=== PATIENT | female | born 1985 ===

== ENCOUNTER 2023-08-23 21:21 | Outpatient (REF) | payer OTHER, SELFPAY ==
[2023-08-30 20:08] LABS: Age Gdln ACOG Testing Note (.); HPV Aptima Positive (Negative); HPV Genotype 16 Negative (Negative); HPV Genotype 18,45 Negative (Negative); IGP, Aptima HPV, rfx 16/18,45 Note (.)
== END 2023-08-23 21:22 | disposition home or self-care (01) ==
LOC: LAB 21:21
PROVIDERS: Visit Provider Physician Assistant
DX: Z01.419 Encounter for gynecological examination (general) (routine) without abnormal findings (principal)
CPT/HCPCS: 87624; 87625; G0145

== ENCOUNTER 2024-10-02 18:23 | Outpatient (REF) | payer OTHER, SELFPAY ==
--- OUTSIDE RECORDS SUMMARY | 2024-10-02 18:29 | XMS_ITS | CCD ---
Author Organization [facility] [place] [facility] Care Team Providers Care Insert Operator Name Role Phone Bladimir Jennings Primary Care Provider [phone] Adolfo Garcia DO Primary Care Provider Raquel VALENCIA Attending Unavailable MORA WELCH Attending Unavailable MORA WELCH Attending Unavailable Adolfo Garcia DO Primary Care Provider DOMENIC GALLAGHER Attending Unavailable ADOLFO GARCIA Primary Care Unavailable Bladimir Jennings MD Primary Care Provider [phone] Medications Current Medications Medication Drug Class(es) Dates Sig (Normalized) Sig (Original) cyclobenzaprine hydrochloride 10 mg oral tablet (2 sources) Muscle Relaxant Start: 01-26-2023 take 1 tablet by mouth three times daily as needed for muscle spasms cyclobenzaprine (FLEXERIL) 10 MG tablet Take 1 tablet by mouth 3 times daily as needed for Muscle spasms 30 tablet 1 01/26/2023 Active take 1 tablet by guanaco three times daily as needed for muscle spasms cyclobenzaprine (FLEXERIL) 10 MG tablet Take 10 mg by mouth 3 times daily as needed for Muscle spasms 0 Active dilTIAZem hydrochloride 30 mg oral tablet (2 sources) Calcium Channel Denis Start: 02-25-2022 take 1 tablet by mouth once daily as needed dilTIAZem (CARDIZEM) 30 MG tablet Take 1 tablet by mouth daily as needed (for SVT epidoses) 30 tablet 3 02/25/2022 Active 3 ml liraglutide 6 mg/ml pen injector (1 source) GLP-1 Receptor Agonist Start: 01-27-2023 liraglutide-weight management 18 MG/3ML SOPN 0.6 mg subcu daily. Inc by 0.6 mg weekly til reaching max tolerated dose of 3 mg weekly. 15 mL 2 01/27/2023 Active 1 ml medroxyPROGESTERone acetate 150 mg/ml injection (3 sources) Progestin Start: 08-23-2023 End: 10-02-2024 medroxyPROGESTERone (Depo-Provera) 150 MG/ML injection Indications: control counseling Inject 1 mL (150 mg) into the shoulder, thigh, or buttocks every 3 (three) months. 1 mL 3 08/23/2023 10/02/2024 Discontinued (Therapy completed) naproxen 500 mg oral tablet (1 source) Nonsteroidal Anti-inflammatory Drug take 1 tablet by mouth in the morning naproxen (NAPROSYN) 500 MG tablet Take 500 mg by mouth in the morning and 500 mg in the evening. Take with meals. 0 Active nitrofurantoin, macrocrystals 25 mg / nitrofurantoin, monohydrate 75 mg oral capsule (1 source) Nitrofuran Antibacterial Start: 06-01-2022 End: 06-06-2022 take 1 capsule by mouth twice daily nitrofurantoin, macrocrystal-monohydra te, (MACROBID) 100 MG capsule Indications: Acute cystitis without hematuria Take 1 capsule by mouth 2 times daily for 5 days 10 capsule 0 06/01/2022 06/06/2022 Active omeprazole 20 mg delayed release oral capsule (5 sources) Proton Pump Inhibitor Start: 09-28-2023 End: 10-02-2024 take 1 capsule by mouth in the morning omeprazole (PriLOSEC) [address] capsule Indications: Gastroesophageal reflux disease, unspecified whether esophagitis present Take 1 capsule (20 mg) by mouth in the morning. Do not crush or chew.. 90 capsule 3 09/28/2023 10/02/2024 Discontinued (Therapy completed) Start: 05-12-2022 take 1 capsule by mo ut once daily before breakfast omeprazole (PRILOSEC) 40 MG delayed release capsule Take 1 capsule by mouth every morning (before breakfast) 90 capsule 1 05/12/2022 Active phentermine hydrochloride 37.5 mg oral tablet (1 source) Sympathomimetic Amine Anorectic Start: 05-12-2022 End: 06-11-2022 take 1 tablet by mouth once daily before breakfast phentermine (ADIPEX-P) 37.5 MG tablet Indications: Morbid obesity due to excess calories (HCC) Take 1 tablet by mouth every morning (before breakfast) for 30 days. 30 tablet 0 05/12/2022 06/11/2022 Active propranolol hydrochloride 10 mg oral tablet (2 sources) beta-Adrenergic Denis Start: 02-25-2022 take 1 tablet by mouth twice daily propranolol (INDERAL) 10 MG tablet Take 1 tablet by mouth 2 times daily 180 tablet 3 02/25/2022 Active 72 hr scopolamine 0.0139 mg/hr transdermal system (1 source) Anticholinergic Start: 03-10-2024 scopolamine (TRANSDERM-SCOP) transdermal patch Place 1 patch onto the skin every 72 hours 3 patch 03/10/2024 Active spironolactone 25 mg oral tablet (2 sources) Aldosterone Antagonist Start: 02-25-2022 take 1 tablet by mouth once daily spironolactone (ALDACTONE) 25 MG tablet Take 1 tablet by mouth daily 30 tablet 11 02/25/2022 Active Problems Problem Classification Problem Date Documented Date Episodic/Chronic Cardiac dysrhythmias (3 sources) Paroxysmal supraventricular tachycardia; Translations: [Supraventricular tachycardia] Onset: 05-12-2022 05-12-2022 Chronic Immunizations and screening for infectious disease (1 source) Patient encounter status; Translations: [Encounter for screening for infections with a predominantly sexual mode of transmission] Episodic Malaise and fatigue (1 source) Fatigue; Translations: [Other fatigue] Episodic Menstrual disorders (2 sources) Menorrhagia; Translations: [Excessive and frequent menstruation with regular cycle] 10-02-2024 Chronic Other female genital disorders (1 source) Vaginal odor; Translations: [Other specified noninflammatory disorders of vagina] Episodic Other lower respiratory disease (1 source) Snoring; Translations: [Snoring] Episodic Other nervous system disorders (2 sources) Carpal tunnel syndrome of right wrist; Translations: [Carpal tunnel syndrome, right upper limb] Onset: 05-12-2022 05-12-2022 Chronic Other nutritional; endocrine; and metabolic disorders (1 source) Obesity; Translations: [Obesity, unspecified] Onset: 10-09-2021 10-09-2021 Chronic Other nutritional; endocrine; and metabolic disorders (2 sources) Morbid obesity; Translations: [Morbid (severe) obesity due to excess calories] Onset: 10-09-2021 05-12-2022 Chronic Other nutritional; endocrine; and metabolic disorders (2 sources) Weight increased; Translations: [Abnormal weight gain] 10-02-2024 Episodic Residual codes; unclassified (1 source) Sleep apnea; Translations: [Sleep apnea, unspecified] Chronic Unclassified (1 source) Supraventricular tachycardia, unspecified; Translations: [Supraventricular tachycardia, unspecified] Onset: 05-12-2022 Results Test Name Value Interpretation Reference Range Facility CBC with Auto Differentialon 09-09-2024 Basophils (Bld) [#/Vol] 0.05 10*3/uL [facility] Basophils/100 WBC (Bld) 0 % 0 - 2 % [facility] Eosinophils (Bld) [#/Vol] 0.20 10*3/uL [facility] Eosinophils/100 WBC (Bld) 1 % 0 - 5 % [facility] Erythrocyte distribution width (RBC) [Ratio] 13.1 % 12.1 - 15.2 % [facility] Hematocrit (Bld) [Volume fraction] 43.0 % 36.0 - 46.0 % [facility] Hemoglobin (Bld) [Mass/Vol] 14.7 g/dL 12.0 - 16.0 g/dL [facility] Immature granulocytes (Bld) [#/Vol] 0.03 10*3/uL [facility] Immature granulocytes/100 WBC (Bld) 0 % 0 - 5 % [facility] Interpretation and review of laboratory results Abnormal [facility] Lymphocytes/100 WBC (Bld) 31 % 15 - 40 % [facility] Lymphocytes/100 WBC (Bld) 4.77 % [facility] MCH (RBC) [Entitic mass] 28.1 pg 26.0 - 34.0 pg [facility] MCHC (RBC) [Mass/Vol] 34.2 g/dL 31.0 - 37.0 g/dL [facility] MCV (RBC) [Entitic vol] 82.1 fL 80.0 - 100.0 fL [facility] Monocytes/100 WBC (Bld) 6 % 4 - 8 % [facility] Monocytes/100 WBC (Bld) 0.90 % [facility] Neutrophils/100 WBC (Bld) 62 % 47 - 75 % [facility] Platelet mean volume (Bld) [Entitic vol] 10.3 fL 6.0 - 12.0 fL [facility] Platelets (Bld) [#/Vol] 388 10*3/uL [facility] RBC (Bld) [#/Vol] 5.24 10*6/uL High 4.00 - 5.2 0 m/uL [facility] Segmented neutrophils/100 WBC (Bld) 9.24 % High [facility] WBC other (Bld) [#/Vol] 15.2 High [facility] CBC with Diffon 09-09-2024 Abs. Basophil 0.05 k/uL Normal 0.00-0.20 [facility] Comment on above: Performed By: #### C DP, CP, TSH, TROPI #### [facility] [address] [place] [address] Field [employer] Team Leader: Alexander Echevarria MD Abs.Imm.Granulocyte 0.03 k/uL Normal 0.00-0.30 [facility] Comment on above: Performed By: #### C DP, CP, TSH, TROPI #### [facility] [address] [place] [address] [employer] Team Leader: Alexander Echevarria MD Abs.Neutrophil (Seg) 9.24 k/uL High 2.5-7.0 [facility] Comment on above: Performed By: #### C DP, CP, TSH, TROPI #### [facility] [address] [place] [address] [employer] Team Leader: Alexander Echevarria MD Basophils/100 WBC (Bld) 0 % Normal 0-2 [facility] Comment on above: Performed By: #### C DP, CP, TSH, TROPI #### [facility] [address] [place] [address] [employer] Team Leader: Alexander Echevarria MD Eosinophils (Bld) [#/Vol] 0.20 10*3/uL Normal 0.00-0.40 [facility] Comment on above: Performed By: #### C DP, CP, TSH, TROPI #### [facility] [address] [place] [phone] [employer] Team Leader: Alexander Echevarria MD Eosinophils/100 WBC (Bld) 1 % Normal 0-5 [facility] Comment on above: Performed By: #### C DP, CP, TSH, TROPI #### [facility] [address] [place] [address] [employer] Team Leader: Alexander Echevarria MD Erythrocyte distribution width (RBC) [Ratio] 13.1 % Normal 12.1-15.2 [facility] Comment on above: Performed By: #### C DP, CP, TSH, TROPI #### [facility] [address] [place] [address] [employer] Team Leader: Alexander Echevarria MD Hematocrit (Bld) [Volume fraction] 43.0 % Normal 36.0-46.0 [facility] Comment on above: Performed By: #### C DP, CP, TSH, TROPI #### [facility] [address] [place] [address] [employer] Team Leader: Alexander Echevarria MD Hemoglobin (Bld) [Mass/Vol] 14.7 g/dL Normal 12.0-16.0 [facility] Comment on above: Performed By: #### C DP, CP, TSH, TROPI #### [facility] [address] [place] [phone] [employer] Team Leader: Alexander Echevarria MD Immature granulocytes/100 WBC (Bld) 0 % Normal 0-5 [facility] Comment on above: Performed By: #### C DP, CP, TSH, TROPI #### [facility] [address] [place] [phone] [employer] Team Leader: Alexander Echevarria MD Lymphocytes (Bld) [#/Vol] 4.77 10*3/uL Normal 1.00-4.80 [facility] Comment on above: Performed By: #### C DP, CP, TSH, TROPI #### [facility] [address] [place] [address] [employer] Team Leader: Alexander Echevarria MD Lymphocytes/100 WBC (Bld) 31 % Normal 15-40 [facility] Comment on above: Performed By: #### C DP, CP, TSH, TROPI #### [facility] [address] [place] [address] [employer] Team Leader: Alexander Echevarria MD MCH (RBC) [Entitic mass] 28.1 pg Normal 26.0-34.0 [facility] Comment on above: Performed By: #### C DP, CP, TSH, TROPI #### [facility] [address] [place] [phone] [employer] Team Leader: Alexander Echevarria MD MCHC (RBC) [Mass/Vol] 34.2 g/dL Normal 31.0-37.0 [facility] Comment on above: Performed By: #### C DP, CP, TSH, TROPI #### [facility] [address] [place] [address] [employer] Team Leader: Alexander Echevarria MD MCV (RBC) [Entitic vol] 82.1 fL Normal 80.0-100.0 [facility] Comment on above: Performed By: #### C DP, CP, TSH, TROPI #### [facility] [address] [place] [phone] [employer] Team Leader: Alexander Echevarria MD Monocytes (Bld) [#/Vol] 0.90 10*3/uL Normal 0.00-1.00 [facility] Comment on above: Performed By: #### C DP, CP, TSH, TROPI #### [facility] [address] [place], [place] [phone] [employer] Team Leader: Alexander Echevarria MD Monocytes/100 WBC (Bld) 6 % Normal 4-8 [facility] Comment on above: Performed By: #### C DP, CP, TSH, TROPI #### [facility] [address] [place], [place] [phone] [employer] Team Leader: Alexander Echevarria MD Neutrophil (Seg) 62 % Normal 47-75 [facility] Comment on above: Performed By: #### C DP, CP, TSH, TROPI #### [facility] [address] [place] [phone] [employer] Team Leader: Alexander Echevarria MD Platelet mean volume (Bld) [Entitic vol] 10.3 fL Normal 6.0-12.0 [facility] Comment on above: Performed By: #### C DP, CP, TSH, TROPI #### [facility] [address] [place] [phone] [employer] Team Leader: Alexander Echevarria MD Platelets (Bld) [#/Vol] 388 10*3/uL Normal 140-450 [facility] Comment on above: Performed By: #### C DP, CP, TSH, TROPI #### [facility] [address] [place] [phone] [employer] Team Leader: Alexander Echevarria MD RBC (Bld) [#/Vol] 5.24 10*6/uL High 4.00-5.20 [facility] Comment on above: Performed By: #### C DP, CP, TSH, TROPI #### [facility] [address] [place] [phone] [employer] Team Leader: Alexander Echevarria MD WBC (Bld) [#/Vol] 15.2 10*3/uL High 3.5-11.0 [facility] Comment on above: Performed By: #### C DP, CP, TSH, TROPI #### [facility] [address] [place], [place] [phone] [employer] Team Leader: Alexander Echevarria MD Comp Metabolic Profon 2023 Albumin [Mass/Vol] 4.9 g/dL Normal 3.5-5.2 [facility] Comment on above: Performed By: #### C DP, CP, TSH, TROPI #### [facility] [address] [place], [place] [phone] [employer] Team Leader: Alexander Echevarria MD Alkaline Phos 107 U/L High 35-104 [facility] Comment on above: Performed By: #### C DP, CP, TSH, TROPI #### [facility] [address] [place] [address] [employer] Team Leader: Alexander Echevarria MD ALT [Catalytic activity/Vol] 85 U/L High 5-33 [facility] Comment on above: Performed By: #### C DP, CP, TSH, TROPI #### [facility] [address] [place], [place] [phone] [employer] Team Leader: Alexander Echevarria MD Anion gap [Moles/Vol] 19 mmol/L High 9-17 [facility] Comment on above: Performed By: #### C DP, CP, TSH, TROPI #### [facility] [address] [place], [place] [phone] [employer] Team Leader: Alexander Echevarria MD AST [Catalytic activity/Vol] 110 U/L High <32 [facility] Comment on above: Performed By: #### C DP, CP, TSH, TROPI #### [facility] [address] [place], [place] [phone] [employer] Team Leader: Alexander Echevarria MD Bilirubin [Mass/Vol] 0.2 mg/dL Low 0.3-1.2 [facility] Comment on above: Performed By: #### C DP, CP, TSH, TROPI #### [facility] [address] [place], [place] [phone] [employer] Team Leader: Alexander Echevarria MD BUN/CRE Ratio 20 Normal 9-20 [facility] Comment on above: Performed By: #### C DP, CP, TSH, TROPI #### [facility] [address] [place], [place] [phone] [employer] Team Leader: Alexander Echevarria MD Calcium [Mass/Vol] 9.8 mg/dL Normal 8.6-10.4 [facility] Comment on above: Performed By: #### C DP, CP, TSH, TROPI #### [facility] [address] [place], [place] [phone] [employer] Team Leader: Alexander Echevarria MD Chloride [Moles/Vol] 98 mmol/L Normal 98-107 [facility] Comment on above: Performed By: #### C DP, CP, TSH, TROPI #### [facility] [address] [place], [place] [phone] [employer] Team Leader: Alexander Echevarria MD CO2 [Moles/Vol] 23 mmol/L Normal 20-31 [facility] Comment on above: Performed By: #### C DP, CP, TSH, TROPI #### [facility] [address] [place], [place] [phone] [employer] Team Leader: Alexander Echevarria MD Creatinine [Mass/Vol] 0.9 mg/dL Normal 0.5-0.9 [facility] Comment on above: Performed By: #### C DP, CP, TSH, TROPI #### [facility] [address] [place] [address] Field Marketing Team Leader: Alexander Echevarria MD GFR/1.73 sq M.predicted among non-blacks MDRD (S/P/Bld) [Vol rate/Area] 84 mL/min/{1.73_m2} Normal >60 [facility] Comment on above: Result Comment: These results are not intended for use in patients <18 years of age. eGFR results are calculated without a race factor using the 2020 CKD-EPI equation. Careful clinical correlation is recommended, particularly when comparing to results calculated using previous equations. The CKD-EPI equation is less accurate in patients with extremes of muscle mass, extra-renal metabolism of creatine, excessive creatine ingestion, or following therapy that affects renal tubular secretion. Performed By: #### C DP, CP, TSH, TROPI #### [facility] [address] [place] [phone] [employer] Team Leader: Alexander Echevarria MD Glucose [Mass/Vol] 106 mg/dL High 70-99 [facility] Comment on above: Performed By: #### C DP, CP, TSH, TROPI #### [facility] [address] [place] [address] Field Marketing Team Leader: Alexander Echevarria MD Potassium [Moles/Vol] 3.5 mmol/L Low 3.7-5.3 [facility] Comment on above: Performed By: #### C DP, CP, TSH, TROPI #### [facility] [address] [place], [place] [phone] Field [employer] Team Leader: Alexander Echevarria MD Protein [Mass/Vol] 8.7 g/dL High 6.4-8.3 [facility] Comment on above: Performed By: #### C DP, CP, TSH, TROPI #### [facility] [address] [place], [place] [phone] [employer] Team Leader: Alexander Echevarria MD Sodium [Moles/Vol] 140 mmol/L Normal 135-144 [facility] Comment on above: Performed By: #### C DP, CP, TSH, TROPI #### [facility] [address] [place] [phone] [employer] Team Leader: Alexander Echevarria MD Urea nitrogen [Mass/Vol] 18 mg/dL Normal 6-20 [facility] Comment on above: Performed By: #### C DP, CP, TSH, TROPI #### [facility] [address] [place] [address] Field Marketing Team Leader: Alexander Echevarria MD Comprehensive Metabolic Pane [facility] 09-09-2024 Albumin [Mass/Vol] 4.9 g/dL 3.5 - 5.2 g/dL [facility] ALP [Catalytic activity/Vol] 107 U/L High 35 - 104 U/L [facility] ALT [Catalytic activity/Vol] 85 U/L High 5 - 33 U/L [facility] Anion gap [Moles/Vol] 19 mmol/L High 9 - 17 mmol/L [facility] AST [Catalytic activity/Vol] 110 U/L High NINF - 32 U/L [facility] Bilirubin [Mass/Vol] 0.2 mg/dL Low 0.3 - 1 .2 mg/dL [facility] Calcium [Mass/Vol] 9.8 mg/dL 8.6 - 10. 4 mg/dL [facility] Chloride [Moles/Vol] 98 mmol/L 98 - 10 7 mmol/L [facility] CO2 [Moles/Vol] 23 mmol/L 20 - 31 mmol/L [facility] Creatinine [Mass/Vol] 0.9 mg/dL 0.5 - 0.9 mg/dL [facility] Est, Glom Filt Rate 84 - PINF [facility] Comment on above: These results are not intended for use in patients <18 years of age. eGFR results are calculated without a race factor using the 2020 CKD-EPI equation. Careful clinical correlation is recommended, particularly when comparing to results calculated using previous equations. The CKD-EPI equation is less accurate in patients with extremes of muscle mass, extra-renal metabolism of creatine, excessive creatine ingestion, or following therapy that affects renal tubular secretion. Glucose [Mass/Vol] 106 mg/dL High 70 - 99 mg/dL [facility] Potassium [Moles/Vol] 3.5 mmol/L Low 3.7 - 5.3 mmol/L [facility] Protein [Mass/Vol] 8.7 g/dL High 6.4 - 8.3 g/dL [facility] Sodium [Moles/Vol] 140 mmol/L 135 - 144 mmol/L [facility] Urea nitrogen [Mass/Vol] 18 mg/dL 6 - 20 mg/dL [facility] Urea nitrogen/Creatinine [Mass ratio] 20 mg/mg 9 - 20 [facility] No Panel Informationon 09-09 Interpretation and review of laboratory results Abnormal [facility] TSHon 09-09-2024 TSH Qn 4.74 m[IU]/L [facility] Thyroid Stim. Horm.on 2023 Thyroid Stim. Horm. 4.74 uIU/mL Normal 0.30-5.00 [facility] Comment on above: Performed By: #### C DP, CP, TSH, TROPI #### [facility] [address] [place], [place] [phone] Field [employer] Team Leader: Alexander Echevarria MD Troponinon 09-09-2024 Troponin I.cardiac High sensitivity method [Mass/Vol] 15 ng/L High 0 - 14 ng/L [facility] Comment on above: High Sensitivity Tro ponin values cannot be compared with other Troponin methodologies. Troponin, High Sens 15 ng/L High 0-14 [facility] Comment on above: Result Comment: High Sensitivity Troponin values cannot be compared with other Troponin methodologies. Performed By: #### C DP, CP, TSH, TROPI #### [facility] [address] [place] [address] Field Marketing Team Leader: Alexander Echevarria MD Cytology Cervical or vaginal smear or scraping studyon 08-23-2023 [facility] Ambulatory Visit Summaryon 1 11-20-2021 Ambulatory Visit Summary MYRA VALENCIA :1985 Visit Date:09/19/2022 Ambulatory Visit Instructions Your Diagnosis Acute nasopharyngitis BMI 50.0-59.9, adult Sore throat Your Care Team Attending Physician - Raquel VALENCIA CNP Primary Care Physician - NONE, XXXX Procedures Performed None. Discharge Vitals Temperature (Oral) 36.6 ?C Heart Rate (Peripheral) 77 Blood Pressure 132/82 Height 160 cm Height 63 in Weight 142 kg Weight 312.4 lb BMI 55.47 What to do next You Need to Schedule the Following Appointments Follow Up with NONE, XXXX When: Where: [phone] Medications and Immunizations Administered Not Given influenza virus vaccine, inactivated, Temporary contraindication - reschedule SARS-CoV-2 mRNA (tozinameran 5y-11y) vac, Temporary contraindication - reschedule Allergies No Known Allergies Problems Ongoing - Any problem that you are currently receiving treatment for. Obesity Historical - Any problem that you are no longer receiving treatment for. [employer] Pharyngitis Pharyngitis is a sore throat (pharynx). This is when there is redness, pain, and swelling in your throat. Most of the time, this condition gets better on its own. In some cases, you may need medicine. Follow these instructions at home: ? Take gqlp-ild-qwmharp and prescription medicines only as told by your doctor. ? If you were prescribed an antibiotic medicine, take it as told by your doctor. Do not stop taking the antibiotic even if you start to feel better. ? Do not give children aspirin. Aspirin has been linked to Quan syndrome. ? Drink enough water and fluids to keep your pee (urine) clear or pale yellow. ? Get a lot of rest. ? Rinse your mouth (gargle) with a salt-water mixture 3?4 times a day or as needed. To make a salt-water mixture, completely dissolve ?-1 tsp of salt in 1 cup of warm water. ? If your doctor approves, you may use throat lozenges or sprays to soothe your throat. Contact a doctor if: ? You have large, tender lumps in your neck. ? You have a rash. ? You cough up green, yellow-brown, or bloody spit. Get help right away if: ? You have a stiff neck. ? You drool or cannot swallow liquids. ? You cannot drink or take medicines without throwing up. ? You have very bad pain that does not go away with medicine. ? You have problems breathing, and it is not from a stuffy nose. ? You have new pain and swelling in your knees, ankles, wrists, or elbows. Summary ? Pharyngitis is a sore throat (pharynx). This is when there is redness, pain, and swelling in your throat. ? If you were prescribed an antibiotic medicine, take it as told by your doctor. Do not stop taking the antibiotic even if you start to feel better. ? Most of the time, pharyngitis gets better on its own. Sometimes, you may need medicine. This information is not intended to replace advice given to you by your health care provider. Make sure you discuss any questions you have with your health care provider. Document Released: 03/08/2009 Document Revised: 09/02/2018 Document Reviewed: 10/26/2017 [employer] Patient Education ? 2019 [employer]. Viral Respiratory Infection A viral respiratory infection is an illness that affects parts of the body that are used for breathing. These include the lungs, nose, and throat. It is caused by a germ called a virus. Some examples of this kind of infection are: ? A cold. ? The flu (influenza). ? A respiratory syncytial virus (RSV) infection. A person who gets this illness may have the following symptoms: ? A stuffy or runny nose. ? Yellow or green fluid in the nose. ? A cough. ? Sneezing. ? Tiredness (fatigue). ? Achy muscles. ? A sore throat. ? Sweating or chills. ? A fever. ? A headache. Follow these instructions at home: Managing pain and congestion ? Take avxw-dfh-vjpwjtw and prescription medicines only as told by your doctor. ? If you have a sore throat, gargle with salt water. Do this 3?4 times per day or as needed. To make a salt-water mixture, dissolve ??1 tsp of salt in 1 cup of warm water. Make sure that all the salt dissolves. ? Use nose drops made from salt water. This helps with stuffiness (congestion). It also helps soften the skin around your nose. ? Drink enough fluid to keep your pee (urine) pale yellow. General instructions ? Rest as much as possible. ? Do not drink alcohol. ? Do not use any products that have nicotine or tobacco, such as cigarettes and e-cigarettes. If you need help quitting, ask your doctor. ? Keep all follow-up visits as told by your doctor. This is important. How is this prevented? ? Get a flu shot every year. Ask your doctor when you should get your flu shot. ? Do not let other people get your germs (more content not included)... Normal [facility] Family Medicine Office/Clini c Noteon 09-19-2022 Family Medicine Office/Clinic Note Chief Complaint EST sore throat HPI Staff 37 year old female presents with sore throat symptoms have been present for? started on Wednesday with a sore throat fever?yes subjective fever? chills?yes Rigors? body aches?yes runny nose?yes sore throat?yes new olfactory and taste disorder? headache?no fatigue?yres cough?yes wheezing?no SOB?yes chest pain/tightness?no nausea or vomiting?no abdominal pain?no diarrhea?no ear pain/pressure?yes sick contacts? context (getting better, worse?) hx of allergies? treatments attempted?tylenol motrin cold and flu meds smoking status?no History of Present Illness I have reviewed and verified the staff HPI to be accurate for this encounter. Patient presents in office for concern of sore throat, tactile fever, chills, body aches, rhinorrhea, nasal congestion, fatigue. Patient has also had cough. Cough has been dry mostly, productive at times. Complains of shortness of breath at times with coughing fits. Denies GI symptoms. Symptoms x3 days. Denies known COVID or flu exposure. Had covid 3 weeks ago. Is not flu vaccinated. Has been using tylenol/motrin, tylenol cold medication with mild improvement. Last dose of medication 5 hours ago. Children had influenza 1.5 weeks ago. Patient states she is concerned she has strep Review of Systems PHQ Score Initial Depression Screen Score: 0 Physical Exam Vitals & Measurements T: 36.6 ?C(Oral) HR: 77(Peripheral) BP: 132/82 SpO2: 97% HT: 63 in HT: 160 cm WT: 142 kg WT: 312.4 lb BMI: 55.47 General: Obese, pleasant adult female in no acute distress Ears: No deformity or lesion of external ear. Canals and TM appear normal bilaterally. TM?s intact, not inflamed, with normal light reflex. Hearing grossly normal to conversational speech Nose: moderate nasal mucosa inflammation and edema, mild clear rhinorrhea Mouth: Moderate pharyngeal erythema, 1+ tonsils, no exudate, no petechiae, no palatal inflammation Neck: no adenopathy Lungs: clear to auscultation throughout, no wheezing, no rales. No respiratory distress, dry cough noted during visit. Cardio: regular rate and rhythm, no murmur Mental Status: Alert and oriented x3. Normal mood and affect Assessment/Plan 1. Acute nasopharyngitis (J00: Acute nasopharyngitis [common cold]) Rapid strep is negative. Discussed symptoms are more consistent with viral upper respiratory infection or possibly influenza. Advised of typical duration. Discussed antibiotics unfortunately do not treat viral illnesses, it will take time to run course- usually 7-14 days. Fluids/rest encouraged, PRN tylenol/ibuprofen for any pain. May use DayQuil/NyQuil or similar, Cepacol throat sprays or throat lozenges for symptomatic tx. Follow up with PCP if not improving over next 7 days or significantly worsening symptoms. Patient and/or parent verbalized understanding of tx plan. Discussed option of respiratory panel at hospital to test for flu, although 3 days of symptoms would not change treatment plan as is outside window for Tamiflu. Patient declines flu testing. 2. BMI 50.0-59.9, adult (Z68.43: Body mass index [BMI] 50.0-59.9, adult) The standard range for ages 18 and older is >=18.5 and < 25 kg/m2. Your BMI today was above this range, this falls in the overweight to obese category and there are medical benefits to weight loss. We can offer counselling, referral, and/or medical support in addressing this problem. Your BMI and weight management will be followed at subsequent visits. Ordered: Body Mass Index (BMI) documented 3008F Sore throat (J02.9: Acute pharyngitis, unspecified) Ordered: Rapid Strep POC [id number] Follow-up With When Contact Information NONE, XXXX [phone] Additional Instructions: Patient Education Pharyngitis, Pipn-nm-Tyeu Viral Respiratory Infection, Abfy-Do-Pwpm BMI for Adults Problem List/Past Medical History Ongoing Obesity Historical Procedure/Surgical History None. 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 Never Smokeless Tobacco Use:., 09/19/2022 Never (less than 100 in lifetime) Tobacco Use:. Never Smokeless Tobacco Use:., 11/15/2020 Family History Congenital heart disease: Father and Sister.Negative: Mother. Diabetes mellitus type 2: Father. Immunizations Vaccine Date Status Comments influenza virus vaccine, inactivated - Not Given Temporary contraindication - reschedule SARS-CoV-2 mRNA (tozinameran 5y-11y) vac - Not Given Temporary contraindication - reschedule SARS-CoV-2 (COVID-1 (more content not included)... Normal [facility] Comment on above: Result Comment: Elec tronically Signed By: ANNIE SEGAL, Raquel Acosta\.br\Date and Time Signed: 09/19/22 14:39 EST Patient Educationon 09-19-20 22 Patient Education Infectious Disease Pharyngitis Pharyngitis is a sore throat (pharynx). This is when there is redness, pain, and swelling in your throat. Most of the time, this condition gets better on its own. In some cases, you may need medicine. Follow these instructions at home: ? Take lahj-dor-nujnjsk and prescription medicines only as told by your doctor. ? If you were prescribed an antibiotic medicine, take it as told by your doctor. Do not stop taking the antibiotic even if you start to feel better. ? Do not give children aspirin. Aspirin has been linked to Quan syndrome. ? Drink enough water and fluids to keep your pee (urine) clear or pale yellow. ? Get a lot of rest. ? Rinse your mouth (gargle) with a salt-water mixture 3?4 times a day or as needed. To make a salt-water mixture, completely dissolve ?-1 tsp of salt in 1 cup of warm water. ? If your doctor approves, you may use throat lozenges or sprays to soothe your throat. Contact a doctor if: ? You have large, tender lumps in your neck. ? You have a rash. ? You cough up green, yellow-brown, or bloody spit. Get help right away if: ? You have a stiff neck. ? You drool or cannot swallow liquids. ? You cannot drink or take medicines without throwing up. ? You have very bad pain that does not go away with medicine. ? You have problems breathing, and it is not from a stuffy nose. ? You have new pain and swelling in your knees, ankles, wrists, or elbows. Summary ? Pharyngitis is a sore throat (pharynx). This is when there is redness, pain, and swelling in your throat. ? If you were prescribed an antibiotic medicine, take it as told by your doctor. Do not stop taking the antibiotic even if you start to feel better. ? Most of the time, pharyngitis gets better on its own. Sometimes, you may need medicine. This information is not intended to replace advice given to you by your health care provider. Make sure you discuss any questions you have with your health care provider. Document Released: 03/08/2009 Document Revised: 09/02/2018 Document Reviewed: 10/26/2017 [employer] Patient Education ? 2020 [employer]. Viral Respiratory Infection A viral respiratory infection is an illness that affects parts of the body that are used for breathing. These include the lungs, nose, and throat. It is caused by a germ called a virus. Some examples of this kind of infection are: ? A cold. ? The flu (influenza). ? A respiratory syncytial virus (RSV) infection. A person who gets this illness may have the following symptoms: ? A stuffy or runny nose. ? Yellow or green fluid in the nose. ? A cough. ? Sneezing. ? Tiredness (fatigue). ? Achy muscles. ? A sore throat. ? Sweating or chills. ? A fever. ? A headache. Follow these instructions at home: Managing pain and congestion ? Take yyvd-vwc-ygsncws and prescription medicines only as told by your doctor. ? If you have a sore throat, gargle with salt water. Do this 3?4 times per day or as needed. To make a salt-water mixture, dissolve ??1 tsp of salt in 1 cup of warm water. Make sure that all the salt dissolves. ? Use nose drops made from salt water. This helps with stuffiness (congestion). It also helps soften the skin around your nose. ? Drink enough fluid to keep your pee (urine) pale yellow. General instructions ? Rest as much as possible. ? Do not drink alcohol. ? Do not use any products that have nicotine or tobacco, such as cigarettes and e-cigarettes. If you need help quitting, ask your doctor. ? Keep all follow-up visits as told by your doctor. This is important. How is this prevented? ? Get a flu shot every year. Ask your doctor when you should get your flu shot. ? Do not let other people get your germs. If you are sick: ? Stay home from work or school. ? Wash your hands with soap and water often. Wash your hands after you cough or sneeze. If soap and water are not available, use hand installation & maintenance executive. ? Avoid contact with people who are sick during cold and flu season. This is in fall and winter. Get help if: ? Your symptoms last for 10 days or longer. ? Your symptoms get worse over time. ? You have a fever. ? You have very bad pain in your face or forehead. ? Parts of your jaw or neck become very swollen. Get help right away if: ? You feel pain or pressure in your chest. ? You have shortness of breath. ? You faint or feel like you will faint. ? You keep throwing up (vomiting). ? You feel confused. Summary ? A viral respiratory infection is an illness that affects parts of the body that are used for breathing. ? Examples of this illness include a cold, the flu, and respiratory syncytial virus (RSV) infection. ? The infection can cause a runny nose, cough, sneezing, sore throat, and fever. ? Follow what your doctor tells you about taking medicines, drinking lots of fluid, washi (more content not included)... Normal [facility] Basic Metabolic Panelon 02-01 Calcium [Mass/Vol] 8.8 mg/dL Normal 8.2-10.2 [facility] Comment on above: Performed By: #### C UU, ADDONUAPLUS #### [facility] [address] Chloride [Moles/Vol] 108 mmol/L Normal 95-114 [facility] Comment on above: Performed By: #### C UU ADDONUAPLUS #### [facility] [address] CO2 [Moles/Vol] 22.8 mmol/L Normal 22.0-30.0 [facility] Comment on above: Performed By: #### C UU, ADDONUAPLUS #### [facility] [address] Creatinine [Mass/Vol] 0.71 mg/dL Normal 0.44-1.03 [facility] Comment on above: Performed By: #### C UU ADDONUAPLUS #### [address] Creatinine Clr Calc Pharmacy 152.47 [facility] Comment on above: Performed By: #### C UU ADDONUAPLUS #### [address] Estimated GFR ( Roxane > 60 [facility] Comment on above: Result Comment: GFR estimated reference range: According to KDOQI guidelines, <60 ml/min/1.73m2 is sufficient to diagnose a patient with chronic kidney disease. Performed By: #### C UScott ADDONUAPLUS #### [address] Estimated GFR (Non- Am > 60 [facility] Comment on above: Performed By: #### C UU, ADDONUAPLUS #### [place] [address] [place] Glucose [Mass/Vol] 115 mg/dL High 70-100 [facility] Comment on above: Result Comment: [place] om Glucose Reference Range is dependent on time and content of last meal. Glucose of more than 200 mg/dL in a nonstressed, ambulatory subject supports the diagnosis of Diabetes Mellitus. ADA recommended reference range Performed By: #### C UU, ADDONUAPLUS #### [facility] [address] [place] [address] [place] Potassium [Moles/Vol] 3.5 mmol/L Normal 3.5-5.1 [facility] Comment on above: Performed By: #### C UU, ADDONUAPLUS #### [facility] [address] Sodium [Moles/Vol] 137 mmol/L Normal 136-146 [facility] Comment on above: Performed By: #### C UU, ADDONUAPLUS #### [facility] [address] Urea nitrogen [Mass/Vol] 11 mg/dL Normal 9-23 [facility] Comment on above: Performed By: #### C UU, ADDONUAPLUS #### [facility] [address] COVID-19 Antigenon 1 COVID-19 Antigen Healthcare Worker?: N Renée Reference Renée Reference Negative SARS-CoV+SARS-CoV-2 (COVID-19) Ag [Presence] in Respiratory specimen by Rapid immunoassay Negative for SARS Antigen by JACKLYN COVID19 Blank Space Renée Disclaimer Negative results, from patients with symptom Renée Disclaimer onset beyond five days, should be treated as Renée Disclaimer presumptive and confirmation with a molecular Renée Disclaimer assay, if necessary, for patient management, Renée Disclaimer may be performed. Negative results do not rule Renée Disclaimer out COVID-19 and should not be used as the sole Renée Disclaimer basis for treatment or patient management Renée Disclaimer decisions, including infection control decisions. Renée Disclaimer Negative results should be considered in the Renée Disclaimer context of a patient's recent exposures, history Renée Disclaimer and the presence of clinical signs and symptoms Renée Disclaimer consistent with COVID-19. COVID19 Blank Space Renée Disclaimer The Renée SARS Antigen JACKLYN does not differentiate Renée Disclaimer between SARS-CoV and SARS-CoV-2. COVID19 Blank Space Renée Disclaimer This test was developed and its performance Renée Disclaimer characteristic determined by [employer] and Renée Disclaimer validated at [facility]. This Renée Disclaimer test has not been FDA cleared or approved. This Renée Disclaimer test has been authorized by FDA under an Emergency Use Renée Disclaimer Authorization (EUA). This test has been validated Renée Disclaimer in accordance with the FDA's Guidance Document (Policy Renée Disclaimer for Diagnostics Testing in Laboratories Certified to Renée Disclaimer Perform High Complexity Testing under CLIA prior to Renée Disclaimer Emergency Use Authorization for Coronavirus Renée Disclaimer iseas during the Public Health Emergency) Renée Disclaimer issued on January 04, 2020. This test is only authorized Renée Disclaimer for the duration of time the declaration that Renée Disclaimer circumstances exist justifying the authorization of Renée Disclaimer the emergency use of in vitro diagnostic tests for Renée Disclaimer detection of SARS-CoV-2 virus and/or diagnosis of Renée Disclaimer COVID-19 infection under section 564(b)(1) of the Renée Disclaimer Act, 21 U.S.C. 360bbb-3(b)(1), unless the Renée Disclaimer authorization is terminated or revoked sooner. PERFORMED BY: [address] [place] [id number] PATHOLOGIST DIRECTOR AGENCY [employer] STRATEGIC [employer]NERSH[employer] CARROLL STOLL M.D. [facility] Comment on above: Performed By: #### C MOSHE CHAVEZ #### [address] COVID-19 FRMCon 02-16-2021 SARS-CoV-2 (COVID-19) RNA STEPHANIE+probe Ql (Unsp spec) Negative Normal Negative [facility] Comment on above: Order Comment: Healt hcare Worker?: N Result Comment: Testing for SARS-CoV-2 by RT-PCR This test was developed and its performance characteristics determined by [employer] and validated at the [facility]. This test has not been FDA cleared or approved. This test has been authorized by FDA under an Emergency Use Authorization (EUA). This test has been validated in accordance with the FDA's Guidance Document (Policy for Diagnostics Testing in Laboratories Certified to Perform High Complexity Testing under CLIA prior to Emergency Use Authorization for Coronavirus Disease-2019 during the Public Health Emergency) issued on January 04, 2020. This test is only authorized for the duration of time the declaration that circumstances exist justifying the authorization of the emergency use of in vitro diagnostic tests for detection of SARS-CoV-2 virus and/or diagnosis of COVID-19 infection under section 564(b)(1) of the Act, 21 U.S.C. 360bbb-3(b)(1), unless the authorization is terminated or revoked sooner. PERFORMED BY: [place] [address] PATHOLOGIST DIRECTOR AGENCY [employer] STRATEGIC [employer]NER[employer] CARROLL STOLL M.D. Performed By: #### MICAELA ROSAPLUS #### [facility] [address] [place] [address] Lipid Panelon 02-16-2021 Cholesterol [Mass/Vol] 179 mg/dL Normal 140-200 [facility] Comment on above: Result Comment: Chol less than 200 mg/dl low risk Chol 201-239 mg/dl borderline risk Chol 240 mg/dl and greater high risk Performed By: #### MICAELA ROSAPLUS #### [facility] [address] [place] [address] Cholesterol in HDL [Mass/Vol] 44 mg/dL Normal 35-85 [facility] Comment on above: Result Comment: HDL CHOL ATP-III CLASSIFICATION Cardiovascular Risk HDL > or equal to 60 mg/dL LOW HDL < 40 mg/dL HIGH Performed By: #### KATELYN ROSAUAPLUS #### [address] Cholesterol.total/Ch olesterol in HDL [Mass ratio] 4.1 {ratio} Normal <5.0 [facility] Comment on above: Result Comment: PERF ORMED BY: [place] [address] PATHOLOGIST DIRECTOR [employer] CARROLL STOLL M.D. Performed By: #### C UScott ADDONUAPLUS #### [address] LDL Cholesterol,Calculat ed 124 mg/dL High 0-100 [facility] Comment on above: Result Comment: LDL ATP III CLASSIFICATION LDL less than 100 mg/dL Optimal LDL 100-129 mg/dL Near or above optimal LDL 130-159 mg/dL Borderline high LDL 160-189 mg/dL High LDL greater than 189 mg/dL Very high Performed By: #### C UU, ADDONUAPLUS #### [address] Triglyceride w/Reflex 54 mg/dL Normal 35-149 [facility] Comment on above: Result Comment: TRIG ATP III CLASSIFICATION TRIG less than 150 mg/dL Normal TRIG 150-199 mg/dL Borderline high TRIG 200-500 mg/dL High TRIG greater than 500 mg/dL Very high Standard traceable to the Center for Disease Conrtrol and Prevention (CDC) test method. Performed By: #### C UU ADDONUAPLUS #### [address] VLDL CHOLESTEROL 10 mg/dL Normal [facility] Comment on above: Performed By: #### C UU, ADDONUAPLUS #### [address] Magnesiumon 02-16-2021 Magnesium [Mass/Vol] 2.0 mg/dL Normal 1.6-2.6 [facility] Comment on above: Performed By: #### C UU, ADDONUAPLUS #### [address] Renée Ag Negativeon 02-17-20 21 Renée Ag Negative Negative Normal Negative [facility] Comment on above: Result Comment: This is a duplicate Renée SARS Antigen (JACKLYN) result to be used for statistical tracking purpose only. PERFORMED BY: [place] [address] PATHOLOGIST DIRECTOR [employer]NER[employer] CARROLL STOLL M.D. Performed By: #### C UU, ADDONUAPLUS #### [address] Troponin I(TnI)on 02-16-2021 Troponin I.cardiac [Mass/Vol] 0.26 ng/mL Off scale high 0-0.02 [facility] Comment on above: Result Comment: LINDA MT Cut off value > or equal to 0.03 ng/mL in conjunction with clinical conditions of myocardial infarction. (www.escardio.org/guidelines) PERFORMED BY: [place] [phone] PATHOLOGIST DIRECTOR AG[employer]NERSH[employer] CARROLL STOLL M.D. Performed By: #### C UU, ADDONUAPLUS #### [place] [address] [place] Troponin I.cardiac [Mass/Vol] 0.28 ng/mL Off scale high 0-0.02 [facility] Comment on above: Result Comment: LINDA MT Cut off value > or equal to 0.03 ng/mL in conjunction with clinical conditions of myocardial infarction. (www.escardio.org/guidelines) PERFORMED BY: [place] [address] PATHOLOGIST DIRECTOR AGENCY [employer]NERSH[employer] CARROLL STOLL M.D. Performed By: #### C UU, ADDONUAPLUS #### [facility] [address] [place] [address] [place] XR chest 1V portableon 02-16 XR chest 1V portable [facility] [place] [address] [place] [address] XRay Report Signed Patient: Myra Valencia MR#: [id number] 5 : 1985 Acct:[id number] Age/Sex: 35 / F ADM Date: 02/16/21 Loc: Room: [address] [place] [address] Type: ADM IN Attending Dr: Tuyet Melchor MD Ordering Provider: Kaylynn Camacho DO Date of Service: 02/15/21 XR/XR chest 1V portable: Arrhythmia/Palpitatio ns Copies to: DO Tuyet Hooper MD XR chest 1V portable 02/15/2021 8:03 PM SIGNS AND SYMPTOMS: Heart palpitations, tachycardia PROTOCOL: Frontal radiograph of the chest COMPARISON: None FINDINGS: The trachea is midline. The heart and mediastinal structures are within normal limits. The lung parenchyma is clear. The bony thorax is intact. XR/XR chest 1V portable IMPRESSION: No acute cardiopulmonary pathology. Impression dictated by: Prashant Couch M.D.02/16/2021 9:46 AM Dictation Location: [place] [address] Transcribed By: [facility] 02/16/21945 Dictated By: Prashant Couch II, MD 02/16/21945 Signed By: 02/16/2146 Normal [facility] Basic Metabolic Panelon 02-01 Calcium [Mass/Vol] 9.4 mg/dL Normal 8.2-10.2 [facility] Comment on above: Performed By: #### B MP, CBC, TSH3, T4F, DDIMER, TROP, HCGQUAL, MG #### [facility] [address] [place] [address] [place] Chloride [Moles/Vol] 106 mmol/L Normal 95-114 [facility] Comment on above: Performed By: #### B MP, CBC, TSH3, T4F, DDIMER, TROP, HCGQUAL, MG #### [facility] [address] [place], [place] [id number] [place] CO2 [Moles/Vol] 22.2 mmol/L Normal 22.0-30.0 [facility] Comment on above: Performed By: #### B MP, CBC, TSH3, T4F, DDIMER, TROP, HCGQUAL, MG #### [address] Creatinine [Mass/Vol] 0.80 mg/dL Normal 0.44-1.03 [facility] Comment on above: Performed By: #### B MP, CBC, TSH3, T4F, DDIMER, TROP, HCGQUAL, MG #### [address] Creatinine Clr Calc Pharmacy 130.55 [facility] Comment on above: Performed By: #### B MP, CBC, TSH3, T4F, DDIMER, TROP, HCGQUAL, MG #### [address] Estimated GFR ( Roxane > 60 [facility] Comment on above: Result Comment: GFR estimated reference range: According to KDOQI guidelines, <60 ml/min/1.73m2 is sufficient to diagnose a patient with chronic kidney disease. Performed By: #### B MP, CBC, TSH3, T4F, DDIMER, TROP, HCGQUAL, MG #### [address] Estimated GFR (Non- Am > 60 [facility] Comment on above: Performed By: #### B MP, CBC, TSH3, T4F, DDIMER, TROP, HCGQUAL, MG #### [address] Glucose [Mass/Vol] 122 mg/dL High 70-100 [facility] Comment on above: Result Comment: [place] Glucose Reference Range is dependent on time and content of last meal. Glucose of more than 200 mg/dL in a nonstressed, ambulatory subject supports the diagnosis of Diabetes Mellitus. ADA recommended reference range Performed By: #### B MP, CBC, TSH3, T4F, DDIMER, TROP, HCGQUAL, MG #### [address] Potassium [Moles/Vol] 4.2 mmol/L Normal 3.5-5.1 [facility] Comment on above: Performed By: #### B MP, CBC, TSH3, T4F, DDIMER, TROP, HCGQUAL, MG #### [address] Sodium [Moles/Vol] 138 mmol/L Normal 136-146 [facility] Comment on above: Performed By: #### B MP, CBC, TSH3, T4F, DDIMER, TROP, HCGQUAL, MG #### [address] Urea nitrogen [Mass/Vol] 11 mg/dL Normal 9-23 [facility] Comment on above: Performed By: #### B MP, CBC, TSH3, T4F, DDIMER, TROP, HCGQUAL, MG #### [address] Complete Blood Count Auto Di ffon 02-15-2021 Basophils (Bld) [#/Vol] 0.1 10*3/uL Normal 0.0-0.2 [facility] Comment on above: Result Comment: PERF ORMED BY: [place] [address] PATHOLOGIST DIRECTOR [employer] CARROLL STOLL M.D. Performed By: #### B MP, CBC, TSH3, T4F, DDIMER, TROP, HCGQUAL, MG #### [address] Basophils/100 WBC (Bld) 0.8 % Normal . [facility] Comment on above: Performed By: #### B MP, CBC, TSH3, T4F, DDIMER, TROP, HCGQUAL, MG #### [address] Eosinophils (Bld) [#/Vol] 0.1 10*3/uL Normal 0.0-0.45 [facility] Comment on above: Performed By: #### B MP, CBC, TSH3, T4F, DDIMER, TROP, HCGQUAL, MG #### [address] Eosinophils/100 WBC (Bld) 0.5 % Normal . [facility] Comment on above: Performed By: #### B MP, CBC, TSH3, T4F, DDIMER, TROP, HCGQUAL, MG #### [address] Erythrocyte distribution width (RBC) [Ratio] 14.4 % Normal 11.9-15.3 [facility] Comment on above: Performed By: #### B MP, CBC, TSH3, T4F, DDIMER, TROP, HCGQUAL, MG #### [address] Hematocrit (Bld) [Volume fraction] 41.0 % Normal 34.0-46.4 [facility] Comment on above: Performed By: #### B MP, CBC, TSH3, T4F, DDIMER, TROP, HCGQUAL, MG #### [address] Hemoglobin (Bld) [Mass/Vol] 13.7 g/dL Normal 11.8-15.4 [facility] Comment on above: Performed By: #### B MP, CBC, TSH3, T4F, DDIMER, TROP, HCGQUAL, MG #### [address] Lymphocytes (Bld) [#/Vol] 2.7 10*3/uL Normal 1.00-4.8 [facility] Comment on above: Performed By: #### B MP, CBC, TSH3, T4F, DDIMER, TROP, HCGQUAL, MG #### [address] Lymphocytes/100 WBC (Bld) 21.1 % Normal . [facility] Comment on above: Performed By: #### B MP, CBC, TSH3, T4F, DDIMER, TROP, HCGQUAL, MG #### [address] MCH (RBC) [Entitic mass] 27.5 pg Normal 24.7-34.3 [facility] Comment on above: Performed By: #### B MP, CBC, TSH3, T4F, DDIMER, TROP, HCGQUAL, MG #### [facility] [address] MCV (RBC) [Entitic vol] 81.9 fL Normal 80-100 [facility] Comment on above: Performed By: #### B MP, CBC, TSH3, T4F, DDIMER, TROP, HCGQUAL, MG #### [facility] [address] Mean Corpuscular HGB Conc 33.5 g/dL Normal 32.0-35.0 [facility] Comment on above: Performed By: #### B MP, CBC, TSH3, T4F, DDIMER, TROP, HCGQUAL, MG #### [address] Monocytes (Bld) [#/Vol] 0.5 10*3/uL Normal 0.0-0.8 [facility] Comment on above: Performed By: #### B MP, CBC, TSH3, T4F, DDIMER, TROP, HCGQUAL, MG #### [address] Monocytes/100 WBC (Bld) 4.1 % Normal . [facility] Comment on above: Performed By: #### B MP, CBC, TSH3, T4F, DDIMER, TROP, HCGQUAL, MG #### [address] Neutrophils (Bld) [#/Vol] 9.6 10*3/uL High 1.8-7.7 [facility] Comment on above: Performed By: #### B MP, CBC, TSH3, T4F, DDIMER, TROP, HCGQUAL, MG #### [address] Neutrophils/100 WBC (Bld) 73.5 % Normal . [facility] Comment on above: Performed By: #### B MP, CBC, TSH3, T4F, DDIMER, TROP, HCGQUAL, MG #### [place] [address] [place] Nucleated RBC/100 WBC (Bld) [Ratio] 0.3 % Normal 0-0.5 [facility] Comment on above: Performed By: #### B MP, CBC, TSH3, T4F, DDIMER, TROP, HCGQUAL, MG #### [address] Platelet mean volume (Bld) [Entitic vol] 7.8 fL Normal 6.3-10.7 [facility] Comment on above: Performed By: #### B MP, CBC, TSH3, T4F, DDIMER, TROP, HCGQUAL, MG #### [facility] [address] Platelets (Bld) [#/Vol] 332 10*3/uL Normal 150-450 [facility] Comment on above: Performed By: #### B MP, CBC, TSH3, T4F, DDIMER, TROP, HCGQUAL, MG #### [address] RBC (Bld) [#/Vol] 5.00 10*6/uL Normal 3.60-5.00 [facility] Comment on above: Performed By: #### B MP, CBC, TSH3, T4F, DDIMER, TROP, HCGQUAL, MG #### [address] WBC (Bld) [#/Vol] 13.0 10*3/uL High 4.5-11.0 [facility] Comment on above: Performed By: #### B MP, CBC, TSH3, T4F, DDIMER, TROP, HCGQUAL, MG #### [address] D-Dimer High Sensitivityon 0 - D-Dimer High Sensitivity 200 ng/mL Normal 0-243 [facility] Comment on above: Result Comment: The reference range for D-dimer is <243 ng/mL D-dimer units. D-dimer results must be used in conjunction with a clinical pretest probability (PTP) assessment model for deep vein thrombosis (DVT) and pulmonary embolism (PE). Results <230 ng/mL d-dimer units can be used as a negative predictor in patients with low or moderate probability for DVT/PE. Results above the exclusion threshold of 230 ng/ml D-dimer units for DVT/PE may indicate the need for further diagnostic testing. D-Dimer can be increased in hospitalized patients due to co-morbid conditions. PERFORMED BY: [place] [address] PATHOLOGIST DIRECTOR [employer] CARROLL STOLL M.D. Performed By: #### B MP, CBC, TSH3, T4F, DDIMER, TROP, HCGQUAL, MG #### [facility] [address] [place] [address] [place] Dipstick and Microscopicon 0 02-15-2021 Appearance (U) Clear Normal Clear [facility] Comment on above: Order Comment: Name Collection Type:: Clean-Voided Midstream Performed By: #### C UU, ADDONUAPLUS #### [address] Bacteria,Urine 1+ High None Seen [facility] Comment on above: Order Comment: Name Collection Type:: Clean-Voided Midstream Performed By: #### C UU, ADDONUAPLUS #### [place] [address] [place] Bilirubin,Urine Negative Normal Negative [facility] Comment on above: Order Comment: Name Collection Type:: Clean-Voided Midstream Performed By: #### C UU, ADDONUAPLUS #### [place] [address] [place] Color (U) Yellow Normal Yellow [facility] Comment on above: Order Comment: Name Collection Type:: Clean-Voided Midstream Performed By: #### C UU, ADDONUAPLUS #### [facility] [address] [place] [address] [place] Glucose Ql (U) Normal Normal Normal [facility] Comment on above: Order Comment: Name Collection Type:: Clean-Voided Midstream Performed By: #### C UU, ADDONUAPLUS #### [place] [address] [place] Hyaline Casts,Urine 0-8 Normal 0-8 [facility] Comment on above: Order Comment: Name Collection Type:: Clean-Voided Midstream Result Comment: PERF ORMED BY: [place] [address] PATHOLOGIST DIRECTOR [employer] CARROLL STOLL M.D. Performed By: #### C UU, ADDONUAPLUS #### [address] Ketones Ql (U) Negative Normal Negative [facility] Comment on above: Order Comment: Name Collection Type:: Clean-Voided Midstream Performed By: #### C UU, ADDONUAPLUS #### [address] Leukocyte esterase Test strip Ql (U) 2+ High Negative [facility] Comment on above: Order Comment: Name Collection Type:: Clean-Voided Midstream Performed By: #### C UU, ADDONUAPLUS #### [address] Nitrite,Urine Negative Normal Negative [facility] Comment on above: Order Comment: Name Collection Type:: Clean-Voided Midstream Performed By: #### C UU, ADDONUAPLUS #### [place] [address] [place] Occult Blood,Urine Negative Normal Negative [facility] Comment on above: Order Comment: Name Collection Type:: Clean-Voided Midstream Result Comment: PERF ORMED BY: [place] [address] PATHOLOGIST DIRECTOR [employer] CARROLL STOLL M.D. Performed By: #### C UU, ADDONUAPLUS #### [place] [address] [place] pH (U) 6.5 [pH] Normal 5.0-9.0 [facility] Comment on above: Order Comment: Name Collection Type:: Clean-Voided Midstream Performed By: #### C UU, ADDONUAPLUS #### [place] [address] [place] Protein,Urine Negative Normal Negative [facility] Comment on above: Order Comment: Name Collection Type:: Clean-Voided Midstream Performed By: #### C UU, ADDONUAPLUS #### [facility] [address] [place] [address] [place] RBC,Urine 10-19 High 0-4 [facility] Comment on above: Order Comment: Name Collection Type:: Clean-Voided Midstream Performed By: #### C UU, ADDONUAPLUS #### [facility] [address] [place] [address] Specificy [place],Urine 1.012 Normal 1.001-1.030 [facility] Comment on above: Order Comment: Name Collection Type:: Clean-Voided Midstream Performed By: #### C UU, ADDONUAPLUS #### [facility] [address] [place] [address] Squamous Epithelial Cell,Urine 3-4 High 0-2 [facility] Comment on above: Order Comment: Name Collection Type:: Clean-Voided Midstream Performed By: #### C UU, ADDONUAPLUS #### [facility] [address] [place] [address] Urobilinogen,Urine Normal Normal Normal [facility] Comment on above: Order Comment: Name Collection Type:: Clean-Voided Midstream Performed By: #### C UU, ADDONUAPLUS #### [facility] [address] [place] [address] [place] WBC,Urine 5-9 High 0-4 [facility] Comment on above: Order Comment: Name Collection Type:: Clean-Voided Midstream Performed By: #### C UU, ADDONUAPLUS #### [facility] [address] [place] [address] ECG 12 lead ECGon 02-15-2021 ECG 12 lead ECG [facility] [place] [address] [place] [address] Electrocardiograph Report Signed Patient: Myra Valencia MR#: [id number] 5 : 1985 Acct:[id number] Age/Sex: 35 / F ADM Date: 02/16/21 Loc: 3T Room: [address] [place] [address] Type: DIS INOo Attending Dr: Tuyet Melchor MD Ordering Provider: Kaylynn Camacho DO Date of Service: 02/15/21 ECG/ECG 12 lead ECG: Arrhythmia/Palpitatio ns Copies to: Test Reason : Blood Pressure : / mmHG Vent. Rate : 116 BPM Atrial Rate : 116 BPM P-R Int : 158 ms QRS Dur : 084 ms QT Int : 318 ms P-R-T Axes : 064 047 044 degrees QTc Int : 442 ms Sinus tachycardia Otherwise normal ECG No previous ECGs available Confirmed by IAN FONSECA DO ([id number]) on 02/17/2021 12:47:35 PM Referred By: Electronically Signed By:IAN FONSECA DO Transcribed By: MUS Dictated By: Ian Fonseca DO 02/15/211930 Signed By: 02/17/21 1247 Normal [facility] Free T4 (Free Thyroxine)on 0 02-15-2021 Free T4 [Mass/Vol] 0.77 ng/dL Normal 0.61-1.12 [facility] Comment on above: Performed By: #### B MP, CBC, TSH3, T4F, DDIMER, TROP, HCGQUAL, MG #### [facility] [address] [place] [address] HCG,Qualitative Serumon 02-01 HCG,Qualitative Serum Negative Normal [facility] Comment on above: Result Comment: PERF ORMED BY: [place] [address] PATHOLOGIST DIRECTOR [employer] CARROLL STOLL M.D. Performed By: #### B MP, CBC, TSH3, T4F, DDIMER, TROP, HCGQUAL, MG #### [facility] [address] Magnesiumon 02-15-2021 Magnesium [Mass/Vol] 2.1 mg/dL Normal 1.6-2.6 [facility] Comment on above: Performed By: #### B MP, CBC, TSH3, T4F, DDIMER, TROP, HCGQUAL, MG #### [facility] [address] [place] [id number] [place] Thyroid Stimulating Hormoneo n 02-15-2021 TSH Qn 2.34 m[IU]/L Normal 0.45-5.33 [facility] Comment on above: Performed By: #### B MP, CBC, TSH3, T4F, DDIMER, TROP, HCGQUAL, MG #### [facility] [address] [place] [id number] [place] Troponin I(TnI)on 02-15-2021 Troponin I.cardiac [Mass/Vol] 0.14 ng/mL Off scale high 0-0.02 [facility] Comment on above: Result Comment: Crit ical value result called at 213 on 02/15/21 [place] Cut off value > or equal to 0.03 ng/mL in conjunction with clinical conditions of myocardial infarction. ([email or web address].org/guidelines) PERFORMED BY: [place] [address] PATHOLOGIST DIRECTOR [employer] CARROLL STOLL M.D. Performed By: #### B MP, CBC, TSH3, T4F, DDIMER, TROP, HCGQUAL, MG #### [place] [id number] [place] Urine Cultureon 02-15-2021 Bacteria identified Cx Nom (U) >100,000 colonies/ml mixed bacterial skin contaminants 2 Days PERFORMED BY: [place] [address] PATHOLOGIST DIRECTOR [employer] CARROLL STOLL M.D. [facility] Comment on above: Performed By: #### C UU, ADDONUAPLUS #### [place] [id number] [place] Vital Signs Date Time Vital Sign Value Performing Clinician Facility 10-02-2024 13:20-0500 Body mass index (BMI) [Ratio] 55.27 kg/m2 Mora OLIVERA Work Phone: [facility] 10-02-2024 13:20-0500 Body weight 143.79 kg Mora OLIVERA Work Phone: [facility] 10-02-2024 13:20-0500 Diastolic blood pressure 78 mm[Hg] Mora OLIVERA Work Phone: [facility] 10-02-2024 13:20-0500 Systolic blood pressure 124 mm[Hg] Mora OLIVERA Work Phone: [facility] 09-09-2024 23:32-0500 Diastolic blood pressure 85 mm[Hg] Domenic Gallagher MD Work Phone: [employer] 09-09-2024 23:32-0500 Heart rate 94 /min Domenic Gallagher MD [facility] [employer] [facility] 09-09-2024 23:32-0500 Respiratory rate 19 /min Domenic Gallagher MD Work Phone[facility] [employer] [facility] 09-09-2024 23:32-0500 Systolic blood pressure 139 mm[Hg] Domenic Gallagher MD Work Phone: [employer] 09-09-2024 23:16-0500 SaO2% (BldA) [Mass fraction] 97 % Domenic Gallagher MD Work Phone: [employer] 09-09-2024 23:00-0500 Body temperature 97.81 [degF] Domenic Gallagher MD Work Phone: [employer] 09-09-2024 21:30-0500 Body height 162.6 cm Domenic Gallagher MD Work Phone: [employer] 09-09-2024 21:30-0500 Body mass index (BMI) [Ratio] 51.49 kg/m2 Domenic Gallagher MD Work Phone: [employer] 09-09-2024 21:30-0500 Body weight 136.08 kg Domenic Gallagher MD Work Phone: [employer] Encounters Encounter Date Encounter Type Care Provider Facility Start: 10-02-2024 End: 10-02-2024 Bamboo flowsheet Mora OLIVERA Work Phone: [facility] Start: 10-02-2024 End: 10-02-2024 Bamboo flowsheet Mora OLIVERA Work Phone: [facility] Start: 10-02-2024 End: 10-02-2024 Patient encounter procedure Mora OLIVERA Work Phone: [facility] Start: 10-02-2024 End: 10-02-2024 Periodic preventive med est patient 18-39 yrs Mora OLIVERA Work Phone: [facility] Comment on above: Well woman exam with routine gynecological exam; Weight gain; Menorrhagia with regular cycle Start: 09-09-2024 End: 09-09-2024 Emergency department patient visit Domenic Gallagher MD Work Phone: [facility] Comment on above: Paroxysmal supravent ricular tachycardia (HCC) (Primary Dx) Start: 09-28-2023 End: 09-28-2023 ambulatory MORA WELCH Not Available Start: 08-23-2023 End: 08-23-2023 ambulatory MORA WELCH Not Available Start: 09-19-2022 End: 09-20-2022 ambulatory Raquel VALENCIA Facility:[facility] Start: 06-01-2022 End: 06-01-2022 Subsequent hospital visit by physician Adolfo Garcia DO Work Phone: [facility] Comment on above: Screening examinatio n for STD (sexually transmitted disease); Vaginal odor Start: 12-30-2021 End: 12-30-2021 Subsequent hospital visit by physician [facility] Schedule [facility] Comment on above: Sleep apnea, unspeci fied type; Fatigue, unspecified type; Loud snoring Procedures Date Procedure Procedure Detail Performing Clinician Start: 09-09-2024 Comprehensive metabo lic panel Domenic Gallagher MD Work Phone: Start: 09-09-2024 Ecg routine ecg w/le ast 12 lds w/i&r Domenic Gallagher MD Work Phone: Start: 08-23-2023 Microscopic observat ion [Identifier] in Cervix by Cyto stain Mora OLIVERA Work Phone: Start: 08-23-2023 Cytp cerv/vag auto t hin layer prep mnl screen Mora OLIVERA Work Phone: Plan of Treatment Date Care Activity Detail Author Start: 08-23-2028 Screening for malign ant neoplasm of cervix [facility] Start: 10-09-2025 End: 10-09-2025 Patient encounter procedure 10/09/2025 9:00 AM EST Office Visit [facility] [address] [place] [address] Mora Welch PA [address] [place], [place] [phone] [facility] Start: 11-15-2024 End: 11-15-2024 Patient encounter procedure 11/15/2024 8:10 AM EST Office Visit [facility] [address] [place] [id number] Carlos Eduardo Davis DO [address] [place], [place] [phone] [facility] Start: 10-02-2024 End: 10-02-2025 aPTT in Blood by Coagulation assay APTT Lab Routine Menorrhagia with regular cycle Expected: 10/02/2024 (Approximate), Expires: 10/02/2025 [facility] Comment on above: Expected: 10/02/2024 (Approximate), Expires: 10/02/2025 Start: 10-02-2024 End: 10-02-2025 US for US PELVIS-TRANSVAG IF INDICATED Imaging Routine Menorrhagia with regular cycle Expected: 10/02/2024 (Approximate), Expires: 10/02/2025 [facility] Comment on above: Expected: 10/02/2024 (Approximate), Expires: 10/02/2025 Start: 06-04-2024 COVID-19 Vaccine () COVID-19 Vaccine () [facility] Start: 06-04-2024 Influenza vaccination Influenza Vacc ine (#1) [facility] Start: 05-04-2024 Influenza vaccination Flu vaccine (# 1) [facility] Start: 01-27-2024 Depression Screen Depression Screen [facility] Start: 05-12-2023 Depression Screen Depression Screen [facility] Start: 10-09-2022 DTaP/Tdap/Td vaccine (2 - Td or Tdap) DTaP/Tdap/Td vaccine (2 - Td or Tdap) [facility] Start: 06-12-2022 End: 06-12-2022 Patient encounter procedure 06/12/2022 Office Visit Family Medicine Adolfo Garcia DO [address] [place] [phone] [facility] Start: 06-04-2022 Influenza vaccination Flu vaccine (# 1) [facility] Start: 06-02-2022 End: 06-02-2022 Patient encounter procedure 06/02/2022 Office Visit Cardiology Elvis Alvarenga MD [address] [place], [place] [phone] [facility] Start: 01-13-2022 End: 01-13-2022 Patient encounter procedure 01/13/2022 Office Visit Cardiology Elvis Alvarenga MD [address] [place] [address] [facility] Start: 07-11-2021 COVID-19 Vaccine (2 - Pfizer 3-dose series) COVID-19 Vaccine (2 - Pfizer 3-dose series) [facility] Start: 06-04-2021 Influenza vaccination Flu vaccine (# 1) [facility] Start: 2017 Screening for malign ant neoplasm of cervix [facility] Start: 2008 Screening for malign ant neoplasm of cervix Pap smear [facility] Start: 2006 Hepatitis B vaccine (1 of - 19+ 3-dose series) Hepatitis B vaccine (1 of 3 - 19+ 3-dose series) [facility] Start: 2005 Hepatitis C screening Hepatitis C [facility] Start: 2002 HIV screening HIV screen [facility] Start: 2000 Varicella vaccine (1 of 2 - 13+ 2-dose series) Varicella vaccine (1 of 2 - 13+ 2-dose series) [facility] Start: 1999 Depression Screen Depression Screen [facility] Start: 1988 Varicella vaccine (1 of 2 - 2-dose childhood series) Varicella vaccine (1 of 2 - 2-dose childhood series) [facility] Start: 1987 COVID-19 Vaccine (#1) COVID-19 Vacci ne (#1) [facility] Start: 1987 Hepatitis C screening Hepatitis C [facility] CBC W Auto Different ial panel - Blood CBC and differential Lab Routine Menorrhagia with regular cycle Ordered: 10/02/2024 [facility] Comment on above: Ordered: 10/02/2024 End: 06-01-2022 Chlamydia/GC DNA, Urine [facility] [employer] Work Phone: Comment on above: 1 Occurrences starti ng 06/01/2022 until 06/01/2022 Cytology Cervical or vaginal smear or scraping study Pap Smear Pathology and Cytology Routine Well woman exam with routine gynecological exam Ordered: 10/02/2024 [facility] Work Phone: Comment on above: Ordered: 10/02/2024 EKG 12 Lead EKG 12 Lead ECG Routine 09/09/2024 9:30 PM EST [facility] hCG, quantitative, hCG, quantitative, Lab Routine Menorrhagia with regular cycle Ordered: 10/02/2024 [facility] Comment on above: Ordered: 10/02/2024 Hemoglobin A1c/Hemoglobin.total in Blood Hemoglobin A1c Lab Routine Menorrhagia with regular cycle Ordered: 10/02/2024 [facility] Comment on above: Ordered: 10/02/2024 End: 12-30-2021 Home sleep study Home sleep study [facility] Routine Sleep apnea, unspecified type Fatigue, unspecified type Loud snoring 1 Occurrences starting 12/30/2021 until 12/30/2021 [email or web address] Work Phone: Comment on above: 1 Occurrences starti ng 12/30/2021 until 12/30/2021 Human papilloma viru s DNA [Presence] in Unspecified specimen by Probe with amplification HPV DNA probe, amplified Microbiology Routine Well woman exam with routine gynecological exam Ordered: 10/02/2024 [facility] Comment on above: Ordered: 10/02/2024 Prothrombin time (PT ) in Blood by Coagulation assay Protime-INR Lab Routine Menorrhagia with regular cycle Ordered: 10/02/2024 [facility] Comment on above: Ordered: 10/02/2024 Thyrotropin [Units/volume] in Serum or Plasma TSH Lab Routine Menorrhagia with regular cycle Ordered: 10/02/2024 [facility] Comment on above: Ordered: 10/02/2024 Thyroxine (T4) free [Mass/volume] in Serum or Plasma T4, free Lab Routine Menorrhagia with regular cycle Ordered: 10/02/2024 [facility] Comment on above: Ordered: 10/02/2024 End: 06-01-2022 Vaginitis DNA [employer] Phone: Comment on above: 1 Occurrences starti ng 06/01/2022 until 06/01/2022 Immunizations Immunization Date Immunization Notes Care Provider rAiel abad 10-09-2012 tetanus toxoid, redu asiya diphtheria toxoid, and acellular pertussis vaccine, adsorbed Adolfo Yonley DO Work Phone: [employer] 08-06-2009 novel [id number], preservative-free, injectable Adolfo Yonley DO Work Phone: [employer] Phone: Payers Date Payer Category Payer Private Health Insurance [facility] [id number] 2021 Private Health Insurance [id number] 2021 Private Health Insurance [id number] 1987 Unknown [id number] 1987 Unknown [id number] 1987 Unknown [id number] 1987 Unknown [id number] Social History Date Type Detail Facility Start: 05-10-2018 End: 05-12-2022 Tobacco smoking status [facility] Never smoked tobacco [employer] Phone: Start: 05-10-2018 End: 05-12-2022 Tobacco use and exposure Smokeless tobacco non-user [employer] Phone: Start: 12-02-2021 End: 09-09-2024 Alcohol intake Current non-drinker of alcohol (finding) [employer] Phone: Start: 1985 Sex Assigned At Not on file [employer] Phone: Start: 05-12-2022 History SDOH 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 Never [employer] How many standard dr inks containing alcohol do you have on a typical day? Patient does not drink Red e App (I/We) worried wheth er (my/our) food would run out before (I/we) got money to buy more. Never true [employer] Tobacco smoking stat [facility] Tobacco smoking consumption unknown [facility] Start: 09-28-2023 Alcoholic beverage intake Lifetime non-drinker (finding) [facility] Start: 1985 Sex assigned at Female [facility] Start: 08-23-2023 Gender identity Identifies as female gender (finding) [facility] Start: 08-23-2023 Sexual orientation Heterosexual (finding) [facility] History of Present illness Narrative 10-02-2024 JAROD Leiva - 10/02/2024 1:00 PM EST Note Date & Type Note Facility 10-02-2024 History of Presen t illness Narrative Reason for Appointment: Patient ID: Myra Valencia is a 39 y.o. female who presents for Gynecologic Exam Patient presents today for Annual Exam. MEDICATIONS Current Outpatient Medications Medication Instructions medroxyPROGESTERone (DEPO-PROVERA) 150 mg, Intramuscular, Every 3 months omeprazole (PRILOSEC) 20 mg, Oral, Daily, Do not crush or chew. ALLERGIES No Known Allergies PROBLEMS Active Ambulatory Problems Diagnosis Date Noted No Active Ambulatory Problems Resolved Ambulatory Problems Diagnosis Date Noted No Resolved Ambulatory Problems Past Medical History: Diagnosis Date Migraines (CMS/HCC) HISTORY PAST MEDICAL HISTORY SOCIAL HISTORY Past Medical History: Diagnosis Date Migraines (CMS/HCC) Social History Tobacco Use Smoking status: Not on file Smokeless tobacco: Not on file Substance Use Topics Alcohol use: Never Drug use: Not on file FAMILY HISTORY Family History Problem Relation Name Age of Onset No Known Problems Mother Hypertrophic cardiomyopathy Father Diabetes Father Other (Chronic strep) Son Thyroid disease Father's Sister SURGICAL HISTORY No past surgical history on file. REVIEW OF SYSTEMS Review of Systems: Review of Systems Constitutional: Negative. HENT: Negative. Eyes: Negative. Respiratory: Negative. Cardiovascular: Negative. Gastrointestinal: Negative. Genitourinary: Negative. Musculoskeletal: Negative. Skin: Negative. Neurological: Negative. All other systems reviewed and are negative. Hematological: Negative. Endocrine: Negative. Allergic/Immunologic: Negative. OBJECTIVE Objective: Physical Exam Constitutional: Appearance: Normal appearance. She is well-developed and normal weight. Genitourinary: Vulva normal. HENT: Head: Normocephalic. Cardiovascular: Rate and Rhythm: Normal rate and regular rhythm. Pulses: Normal pulses. Pulmonary: Effort: Pulmonary effort is normal. Breath sounds: Normal breath sounds. Abdominal: General: Bowel sounds are normal. There is no distension. Palpations: Abdomen is soft. Tenderness: There is no abdominal tenderness. There is no guarding or rebound. Musculoskeletal: General: No swelling. Normal range of motion. Right lower leg: No edema. Left lower leg: No edema. Neurological: General: No focal deficit present. Mental Status: She is alert and oriented to person, place, and time. Skin: General: Skin is warm and dry. Psychiatric: Mood and Affect: Mood normal. Behavior: Behavior normal. Thought Content: Thought content normal. Judgment: Judgment normal. Vitals and nursing note reviewed. Exam conducted with a fiberglass dowel drawing operator present. Vitals: Estimated body mass index is 53.67 kg/m as calculated from the following: Height as of 05/13/18: 5' 3.5 . Weight as of 09/28/23: 307 lb 12.8 oz. BP: No LMP recorded. ASSESSMENT & PLAN ICD-10-CM 1. Well woman exam with routine gynecological exam Z01.419 Pap Smear HPV DNA probe, amplified Annual Exam: Patient presents today for an annual exam. Patient states she is doing well and has no complaints. Pap was obtained without difficulty. Pt complains of weight issues and would like to start on Semaglutide, the order was sent to [email or web address]. Pt complains of AUB and very irregular with her menstruation. Pt was given Menorrhagia labs/US to have obtained and to schedule a f/up visit with Dr. Davis after US is done. Pt verbally understood. Orders Placed This Encounter Procedures HPV DNA probe, amplified Follow Up: Patient is to return in one year for annual unless needed otherwise. Pt is to schedule a f/up visit with Dr. Davis to review US and labs due to AUB/menorrhagia issues. Documented by Tamanna Faye MA on behalf of: JAROD Leiva documented in this encounter [facility] History of Present illness Narrative 12-30-2021 Michel Tirado - 12/30/2021 7:15 PM EDT Note Date & Type Note Facility 12-30-2021 History of Present illness Narrative Myra arrived late for her HST Visit. Instruction regarding HST Unit setup and operation was given, to which she verbalized an understanding. documented in this encounter [employer] Phone: Evaluation note Note Date & Type Note Facility Evaluation note Diagnosis Sleep apnea, unspecified type Fatigue, unspecified type Loud snoring documented in this encounter [employer] Phone: Evaluation note Note Date & Type Note Facility Evaluation note Diagnosis Screening examination for STD (sexually transmitted disease) Screening examination for venereal disease Vaginal odor Unspecified symptom associated with female genital organs documented in this encounter [employer] Phone: Evaluation note Note Date & Type Note Facility Evaluation note Diagnosis Paroxysmal supraventricular tachycardia (HCC)- Primary Paroxysmal supraventricular tachycardia documented in this encounter [facility] Evaluation note Note Date & Type Note Facility Evaluation note Diagnosis Well woman exam with routine gynecological exam Routine gynecological examination Weight gain Other symptoms concerning nutrition, metabolism, and development Menorrhagia with regular cycle documented in this encounter [facility] Discharge instructions Attachments Note Date & Type Note Facility Hospital Discharge instructions The following attachments cannot be sent through Care Everywhere.Supraventricular Tachycardia (Citizen Of [place])documented in this encounter [employer] Summary Purpose Family History No Family History Records FoundNo Family History Records FoundNo Family History Records FoundNo Family History Records Found Advance Directives Documents on File Type Date 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 Reason for Referral Specialty Diagnoses / Procedures Referred By Priscilla t Referred To Contact Sleep Center Diagnoses Sleep apnea, unspecified type Fatigue, unspecified type Loud snoring Procedures Home sleep study Elvis Alvarenga MD [address] [place] [id number] Referral ID Status Reason Start Date Expiration Date Visits Re quested Visits Authorized Closed 12/23/2021 12/23/2022 1 1 Additional Source Comments INFORMATION SOURCE (unrecogn ized section and content) DATE CREATED AUTHOR 10/21/2021 [facility] DATE CREATED AUTHOR AUTHOR'S ORGANIZ ATION 09/25/2022 [facility] DATE CREATED AUTHOR AUTHOR'S ORGANIZ ATION 09/30/2023 [facility] EP[facility] DATE CREATED AUTHOR AUTHOR'S ORGANIZ ATION 09/13/2024 [facility] Reason for Visit (unrecogniz ed section and content) Specialty Diagnoses / Procedures Referred By Priscilla iverson Referred To Contact Sleep Center Diagnoses Sleep apnea, unspecified type Fatigue, unspecified type Loud snoring Procedures Home sleep study Elvis Alvarenga MD [address] [place] [address] Referral ID Status Reason Start Date Expiration Date Visits Re quested Visits Authorized [id number] Closed 12/23/2021 12/23/2022 1 1 Reason Comments Tachycardia Patient states she i s in SVT. Started over an hour ago. Patient has Hx of SVT. Sees [facility]aa. States she is supposed to take a pill when it starts. Patient states she doesn't know what the pill is and she wasn't at home, so she came to the ER. Reason Comments Gynecologic Exam Weight Management Pt present today for weight loss consult injections through [facility]. Care Teams (unrecognized sec tion and content) Insert Operator Relationship Specialty Start Date End Date Bladimir Jennings [address] [place] [address] PCP - General Family Medicine 10/09/21 Insert Operator Relationship Specialty Start Date End Date Adolfo Garcia DO [address] [place] [id number] PCP - General Family Medicine 05/12/22 Insert Operator Relationship Specialty Start Date End Date YonlAdolfo beverlyDO [address] [place] [id number] PCP - General Family Medicine 05/12/22 Insert Operator Relationship Specialty Start Date End Date Bladimir Jennings MD [address] [place] [address] PCP - General Family Medicine 02/09/23 Insert Operator Relationship Specialty Start Date End Date Bladimir Jennings MD [address] [place] [address] PCP - General Family Medicine 02/09/23 FOR RECORDS PERTAINING TO PATIENTS WHO ARE OR HAVE BEEN ENROLLED IN A CHEMICAL DEPENDENCY/SUBSTANCEABUSE PROGRAM, SOME INFORMATION MAY BE OMITTED. This clinical summary was aggregated from multiple sources. Caution should be exercised in using it in the provision of clinical care. This summary normalizes information from multiple sources, and as a consequence, information in this document may materially change the coding, format and clinical context of patient data. In addition, data may be omitted in some cases. CLINICAL DECISIONS SHOULD BE BASED ON THE PRIMARY CLINICAL RECORDS. [facility]. provides no warranty or guarantee of the accuracy or completeness of information in this document.
[2024-10-06 21:06] LABS: Age Gdln ACOG Testing Note (.); HPV Aptima Positive (Negative); HPV Genotype 16 Negative (Negative); HPV Genotype 18,45 Negative (Negative); IGP, Aptima HPV, rfx 16/18,45 Note (.)
== END 2024-10-02 18:24 | disposition home or self-care (01) ==
LOC: LAB 18:23
PROVIDERS: Visit Provider Physician Assistant
DX: Z01.419 Encounter for gynecological examination (general) (routine) without abnormal findings (principal)
CPT/HCPCS: 87624; 88175

== ENCOUNTER 2025-08-09 13:30 | Outpatient (REF) | payer OTHER, SELFPAY ==
--- OUTSIDE RECORDS SUMMARY | 2025-08-01 11:40 | XMS_ITS | Encounter Summary ---
Author Organization [facility] 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 Gets weak and dizziness. Took some old keflex due to having some urinary incontinence and right side abdominal pain. Checked for appendicitis. ER found ovarian cysts. Saw coding assistant. Thinks that the diarrhea may have been from constipation. Started taking Florastor. Since 06/07/25 she has taken keflex, zpack, doxycycline, flagyl, avelox and diflucanRashLeft eye and mouth Encounter Details DateTypeDepartmentCare Team (Latest Contact Info)Vcmrahiinyw16/29/2025 12:40 PM EDTOffice Visit [facility] [address] [place] [address] Krystal Hines DO [address] [place] [address] Facial rash (Primary Dx); Stress incontinence; Female perineal pressure; RLQ abdominal pain; Acute URI Social History Tobacco UseTypesPacks/DayYears UsedDateSmoking Tobacco: NeverSmokeless Tobacco: Never Tobacco Cessation:Counseling Given: Not Answered Alcohol UseStandard Drinks/WeekCommentsNo0 (1 standard drink = 0.6 oz pure alcohol)[facility] UtilitiesAnswerDate RecordedIn the past 12 months has the [employer], gas, oil, or water company threatened to shut off services in your home?No 11/01/2024UDIT-CAnswerDate RecordedQ1: How often do you have a drink containing alcohol?Never09/09/2024Q2: How many drinks containing alcohol do you have on a typical day when you are drinking?Patient does not drink09/09/2024Q3: How often do you have six or more drinks on one occasion?Never09/09/2024Overall Financial Resource Strain (CARDIA)AnswerDate RecordedHow hard is it for you to pay for the very basics like food, housing, medical care, and heating?Not hard at all 01/26/2023HQ-2AnswerDate RecordedPHQ-9 Total Belnn713Hunger Vital Sign AnswerDate RecordedWithin the past 12 months, you worried that your food would run out before you got the money to buymore.Never true11/01/2024Within the past 12 months, the food you bought just didn't last and you didn't have money to get more.Never true11/01/2024PRAPARE - TransportationAnswerDate RecordedIn the past 12 months, has lack of transportation kept you from medical appointments or from getting medications?No11/01/2024In the past 12 months, has lack of transportation kept you from meetings, work, or from getting things needed for daily living?11/01/2024Housing Stability Vital SignAnswerDate RecordedUnable to Pay for Housing in the Last YearNot on file01/26/2023Number of Places Lived in the Last YearNot on file01/26/2023In the last 12 months, was there a time when you did not have a steady place to sleep or slept in [place] (including now)?No01/26/2023Housing Stability Vital SignAnswerDate RecordedIn the last 12 months, was there a time when you were not able to pay the mortgage or rent on time?No11/01/2024In the past 12 months, how many times have you moved where you were living?t any time in the past 12 months, were you homeless or living in a penitentiary (including now)?No11/01/2024Food InsecurityAnswerDate RecordedWithin the past 12 months, you worried that your food would run out before you got the money to buymore.Within the past 12 months, the food you bought just didn't last and you didn't have money to get more.1 11/01/2024CommentsNoSex and Gender InformationValueDate RecordedSex Assigned at EcpcaMozpgw91/27/2025 7:05 AM EDTLegal IqkHnsskj39/07/2018 11:04 PM EDTGender IdentityNot on fileSexual OrientationNot on filedocumented as of this encounter Last Filed Vital Signs Vital SignReadingTime TakenCommentsBlood Cmfptghd325/801 12:42 PM EDT Qizub002108/01/2025 12:42 PM EDTTemperature--Respiratory Rate--Oxygen Saturation 96%08/01/2025 12:42 PM EDTInhaled Oxygen Concentration--Kuvfpo073.6 kg (310 lb) 08/01/2025 12:42 PM IDIZznsdz957.6 cm (5' 4.02 )08/01/2025 12:42 PM EDTBody Mass Index53.181 12:42 PM EDTdocumented in this encounter Progress Notes * Krystal Hines, DO - 08/01/2025 12:58 PM EDT Name: Myra Servin : 1985 Chief Complaint: Chief Complaint Patient presents with Abdominal Pain Started in May, abdominal pain and diarrhea with eating. Gets weak and dizziness. Took some old keflex due to having some urinary incontinence and right side abdominal pain. Checked for appendicitis. ER found ovarian cysts. Saw coding assistant. Thinks that the diarrhea may have been from constipation. Started taking Florastor. Since 06/07/25 she has taken keflex, zpack, doxycycline, flagyl, avelox and diflucan Rash Left eye and mouth History of Present Illness: Myra Servin is a 40 y.o. female who presents with Abdominal Pain (Started in May, abdominal pain and diarrhea with eating. Gets weak and dizziness. Took some old keflex due to having some urinary incontinence and right side abdominal pain. Checked for appendicitis. ER found ovarian cysts. Saw coding assistant. Thinks that the diarrhea may have been from constipation. Started taking Florastor. Sin ce 06/07/25 she has taken keflex, zpack, doxycycline, flagyl, avelox and diflucan) and Rash (Left eyeand mouth) HPI Had had GI trouble in the summer as above, feeling better now, taking florastor. Seeing asbestos siding installer. Had been having trouble with urine leakage and felt very unwell, sweaty and dizzy, started keflex she had at home. 2d later was having RLQ pain, went to ER (sent there from urgent care d/t concern for appendicitis) and had US and CT. Was told pain maybe d/t ovarian cyst. Was given keflex (to continue) and a diflucan. Still has urine leakage and can have constant feeling of needing to pee. For a long time has had stress incontinence with things like sneezing. Got a lot worse recently, would happen even just with shifting in chair. Couple nights ago was urinating very frequently, took a diflucan that night. Not as frequent of urination now. Had some itching of butt which resolved. Urine bright yellow - had alsostarted [employer]. Using boric acid vaginal suppository which helps for a couple days at a time, has used3 times in past month. Not sexually active - had had intercourse once in May, aside from that had been a long time. Per asbestos siding installer had urine and vag swab (collection - no pelvic exam) and was told she had an STD, then told she didn't have one. Has been on multiple abx as above. Rash archana eyelids, dry & flaky, can blister at times, around nose, mouth. About a month ago the eyes had been a lot worse, gunky, did improve and then worsened again. On waking it feels itchy, wants to rub. Through the day becomes puffy and red. L medial to eye gets moist. L angle of mouth affected also. Diflucan 2d ago and started to clear. Facial rash started after finishing flagyl. 2d ago started feeling achy and run down, nasal congestion. Very heavy menses, clotty, can go through ultra tampon in an hr. Regular. Planning EMB, tubal, and ablation. She has felt pressure in vagina, similar to doing a kegel, for a long time. Didn't have any difficulty or discomfort with intercourse. Medical History: Patient Active Problem List Diagnosis Morbid obesity due to excess calories (HCC) Paroxysmal supraventricular tachycardia Right carpal tunnel syndrome Medications: Prior to Admission medications Medication Sig Start Date End Date Taking? Authorizing Provider mupirocin (BACTROBAN) 2 % ointment Apply topically in the morning and in the evening and before bedtime. Do all this for TEN days. 07/17/25 Yes Provider, MD Shahriar itraconazole (SPORANOX) 100 MG capsule Take 2 capsules by mouth daily for 7 days 08/01/25 08/08/25 Yes Krystal Hines DO dilTIAZem (CARDIZEM CD) 180 MG extended release capsule Take 1 capsule by mouth daily 04/16/25 Yes Krystal Hines DO cyclobenzaprine (FLEXERIL) 10 MG tablet Take 1 tablet by mouth 3 times daily as needed for Muscle spasms 04/16/25 Yes Krystal Hines DO omeprazole (PRILOSEC) 40 MG delayed release capsule Take 1 capsule by mouth every morning (before breakfast) 04/16/25 Yes Krystal Hines DO escitalopram (LEXAPRO) 10 MG tablet Take 1 tablet by mouth daily 04/16/25 Yes Krystal Hines DO ondansetron (ZOFRAN-ODT) 4 MG disintegrating tablet Take 1 tablet by mouth 3 times daily as needed for Nausea or Vomiting 04/16/25 Yes Kyrstal Hines DO propranolol (INDERAL) 10 MG tablet Take 1 tablet by mouth 4 times daily as needed (SVT) 11/01/24 Robbie Cassidy DO valACYclovir (VALTREX) 1 g tablet Take 1 tablet by mouth 2 times daily for 7 days 08/02/25 08/09/25 Krystal Hines DO Allergies: Patient has no known allergies. Physical Exam: Vitals: BP 136/80 Pulse 86 Ht 1.626 m (5' 4.02 ) Wt (!) 140.6 kg (310 lb) SpO2 96% BMI 53.18 kg/m?? Physical Exam Vitals and nursing note reviewed. Constitutional: General: She is not in acute distress. Appearance: Normal appearance. She is well-developed. She is not ill-appearing. HENT: Right Ear: Tympanic membrane normal. Left Ear: Tympanic membrane normal. Nose: Congestion present. Mouth/Throat: Mouth: Mucous membranes are moist. Pharynx: Posterior oropharyngeal erythema present. Cardiovascular: Rate and Rhythm: Normal rate and regular rhythm. Heart sounds: Normal heart sounds. Pulmonary: Effort: Pulmonary effort is normal. Breath sounds: Normal breath sounds. Abdominal: General: Bowel sounds are normal. Palpations: Abdomen is soft. Tenderness: There is no abdominal tenderness. Skin: Findings: Rash (archana upper eyelids L>R, L angle of mouth, L naris: pink dry raised rash, faint yellow hint with perhaps scant crusting) present. Neurological: Mental Status: She is alert and oriented to person, place, and time. Psychiatric: Mood and Affect: Mood normal. Behavior: Behavior normal. Data: Lab Results Component Value Date/Time NA 135 11/01/2024 10:54 AM K 3.8 11/01/2024 10:54 AM CL 102 11/01/2024 10:54 AM CO2 23 11/01/2024 10:54 AM BUN 15 11/01/2024 10:54 AM CREATININE 0.6 11/01/2024 10:54 AM GLUCOSE 92 11/01/2024 10:54 AM BILITOT 0.3 11/01/2024 10:54 AM ALKPHOS 71 11/01/2024 10:54 AM AST 15 11/01/2024 10:54 AM ALT 16 11/01/2024 10:54 AM Lab Results Component Value Date/Time WBC 11.6 08/01/2025 02:06 PM RBC 4.90 08/01/2025 02:06 PM HGB 12.0 08/01/2025 02:06 PM HCT 37.9 08/01/2025 02:06 PM MCV 77.3 08/01/2025 02:06 PM MCH 24.5 08/01/2025 02:06 PM MCHC 31.7 08/01/2025 02:06 PM RDW 13.8 08/01/2025 02:06 PM PLT 394 08/01/2025 02:06 PM MPV 9.6 08/01/2025 02:06 PM Lab Results Component Value Date/Time TSH 1.76 08/01/2025 02:06 PM Lab Results Component Value Date/Time CHOL 189 11/28/2021 11:57 AM LDL 115 11/28/2021 11:57 AM HDL 55 11/28/2021 11:57 AM LABA1C 5.3 11/01/2024 10:54 AM Assessment & Plan: Diagnosis Orders 1. Facial rash 2. Stress incontinence 3. Female perineal pressure 4. RLQ abdominal pain 5. Acute URI Ddx von dermatitis, atopic dermatitis, impetigo. Has been on extensive abx and this does seem to respond to diflucan, so I suspect von dermatitis. Treating orally. F/u if not improving. 2-3. Worsening and suspect she has pelvic floor insufficiency. Advised having pelvic exam prior to upcoming asbestos siding installer procedures - for example, likely wouldn't want to proceed with ablation if she would need a hyst before long. Advised pelvic floor exercises, decreasing intake of bladder irritants (drinks lots of caffeinated pop). 4. Resolved, had had normal CT, physiologic ovarian cyst. May have been r/t a bowel condition. 5. Early and likely viral. Advised supportive care, f/u if worsening. Requested Prescriptions Signed Prescriptions Disp Refills itraconazole (SPORANOX) 100 MG capsule 14 capsule 0 Sig: Take 2 capsules by mouth daily for 7 days There are no Patient Instructions on file for this visit. signed by Krystal Hines DO on 08/05/2025 at 8:44 PM M[facility] [address] [facility] [address] Dept: [phone] documented in this encounter Plan of Treatment DateTypeDepartmentCare Team (Latest Contact Info)Sytqpbtgxsd36/25/2025 9:00 AM ESTOffice Visit [facility] Finding Fastener [address] [place] [id number] Robbie De Santiago DO [address] [address] 6 month f/u111/06/2024 7:40 AM ESTOffice Visit [facility] [address] [place] [address] Krystal Hines DO [address] [facility] [place] [id number] 1 mos - recheck rash10/17/2025 12:40 PM ESTOffice Visit [facility] [address] [place] [address] Krystal Hines DO [address] [place] [address] 6 mos - Anxietydocumented as of this encounter Visit Diagnoses Diagnosis Facial rash- Primary Stress incontinence Female stress incontinence Female perineal pressure Unspecified symptom associated with female genital organs RLQ abdominal pain Abdominal pain, right lower quadrant Acute URI Acute upper respiratory infections of unspecified site documented in this encounter Care Teams Team MemberRelationshipSpecialtyStart DateEnd Date Krystal Hines DO [address] [facility] [place] [id number] PCP - GeneralFamily Medicine05/12/22documented as of this encounter
--- OUTSIDE RECORDS SUMMARY | 2025-08-01 12:52 | XMS_ITS | Encounter Summary ---
Author Organization [facility] Address [address], [address] [place] [address] Care Team Providers Care Relay Tester Helper Name Role Phone Alexrush Krystal Hayde FLOWERS Primary Care Provider [phone] Encounter Details DateTypeDepartmentCare Team (Latest Contact Info)Zknevnwvipj40/29/2025 1:52 PM EDT - 08/01/2025 11:59 PM EDTHospital Encounter [facility] Laboratory [address] [place] [address] Discharge Disposition: Home or Self Care Social History Tobacco UseTypesPacks/DayYears UsedDateSmoking Tobacco: NeverSmokeless Tobacco: NeverAlcohol UseStandard Drinks/WeekCommentsNo0 (1 standard drink = 0.6 oz pure alcohol)[facility] UtilitiesAnswerDate RecordedIn the past 12 months has the electric, gas, oil, or water Borro threatened to shut off services in your [...] heating?Not hard at all 01/26/2023HQ-2AnswerDate RecordedPHQ-9 Total Xatqt867Hunger Vital Sign AnswerDate RecordedWithin the past 12 [...] or from getting things needed for daily living?No11/01/2024Housing Stability Vital SignAnswerDate RecordedUnable to Pay for Housing in the Last YearNot on file01/26/2023Number of Places Lived in the Last YearNot on file01/26/2023In the last 12 months, was there a time when you did not have a steady place to sleep or slept in uehlingelt (including now)?No01/26/2023Housing Stability Vital SignAnswerDate RecordedIn the last 12 months, was there a time when you were not able to pay the mortgage or rent on time?No11/01/2024In the past 12 months, how many times have you moved where you were living?t any time in the past 12 months, were you homeless or living in a skilled nursing (including now)?No11/01/2024Food InsecurityAnswerDate RecordedWithin the past 12 months, you worried that your food would run out before you got the money to buymore.Within the past 12 months, the food you bought just didn't last and you didn't have money to get more.1 11/01/2024CommentsNoSex and Gender InformationValueDate RecordedSex Assigned at ZmbwpMkurzu13/27/2025 7:05 AM EDTLegal TviVjmnbf85/07/2018 11:04 PM EDTGender IdentityNot on fileSexual OrientationNot on filedocumented as of this encounter Medications at Time of Discharge MedicationSigDispense QuantityRefillsLast FilledStart DateEnd Date mupirocin (BACTROBAN) 2 % ointment Apply topically in the morning and in the evening and before bedtime. Do all this for TEN days.07/17/2025 dilTIAZem (CARDIZEM CD) 180 MG extended release capsule Take 1 capsule by mouth daily 90 capsule cyclobenzaprine (FLEXERIL) 10 MG tablet Take 1 tablet by mouth 3 times daily as needed for Muscle spasms 90 tablet omeprazole (PRILOSEC) 40 MG delayed release capsule Take 1 capsule by mouth every morning (before breakfast) 90 capsule escitalopram (LEXAPRO) 10 MG tablet Take 1 tablet by mouth daily 90 tablet ondansetron (ZOFRAN-ODT) 4 MG disintegrating tablet Take 1 tablet by mouth 3 times daily as needed for Nausea or Vomiting 60 tablet 04/16/2025 propranolol (INDERAL) 10 MG tablet Take 1 tablet by mouth 4 times daily as needed (SVT) 90 tablet itraconazole (SPORANOX) 100 MG capsule Take 2 capsules by mouth daily for 7 days 14 capsule documented as of this encounter Plan of Treatment DateTypeDepartmentCare Team (Latest Contact Info)Wawnxxpaptn35/25/2025 9:00 AM ESTOffice Visit [facility] Cl[facility] Operator [address] [place] [phone] Robbie De Santiago DO [address] [place] [address] 6 month f/u111/06/2024 7:40 AM ESTOffice Visit [facility] [address] [place] [phone] Krystal Hines DO [address] [place] [phone] 1 mos - recheck rash10/17/2025 12:40 PM ESTOffice Visit [facility] [address] [place] [phone] Krystal Hines, DO [address] [address] 6 mos - Anxietydocumented as of this encounter Procedures Procedure NamePriorityDate/TimeAssociated DiagnosisCommentsT. PALLIDUM ABRoutine 08/01/2025 2:06 PM EDT CBC WITH AUTO GONRLXNFBYQYHunwlyt39/29/2025 2:06 PM EDT HIV RMWKARQsncekk18/29/2025 2:06 PM EDT HEPATITIS B SURFACE GLGHSBZHqobxoq34/29/2025 2:06 PM EDT HMUYMnwjlpk59/29/2025 2:06 PM EDT PROTIME-ELPPzpsopq74/29/2025 2:06 PM EDT HCG, QUANTITATIVE, WAMRBVIOXPazhagn92/29/2025 2:06 PM EDT MJIClfjboy95/29/2025 2:06 PM EDT T4, GBDAByvbitr04/29/2025 2:06 PM EDT documented in this encounter Results * TSH (08/01/2025 2:06 PM EDT)ComponentValueRef RangeTest MethodAnalysis Time Performed AtPathologist SignatureTSH1.760.27 - 4.20 uIU/mL08/01/2025 2:06 PM EDTMERCCLEVELAND [facility]INIC [facility] K[facility]I LABSpecimen (Source)Anatomical Location / Laterality Collection Method / VolumeCollection TimeReceived Time08/01/2025 2:06 PM EDT 08/01/2025 2:08 PM EDT Narrative Authorizing ProviderResult TypeResult StatusCorey Ron Davis MDCHEMISTRY ORDERABLESFinal ResultPerforming OrganizationAddressCity/State/ZIP CodePhone Number [facility] [address] [place] [id number] [phone] * T. pallidum Ab (08/01/2025 2:06 PM EDT)ComponentValueRef RangeTest Method Analysis TimePerformed AtPathologist SignatureT. pallidum, IgGNONREACTIVE HCABLRKUTPM35/29/2025 2:06 PM EDTMMERCY HEALTH ALLEN HOSPITAL LABORATORIESComment: ? T. pallidum antibodies are not detected. There is no serological evidence of infection with T. pallidum (early primary syphilis cannot be excluded). ??Retest in 2-4 weeks if syphilis is clinically suspect. ? Specimen (Source)Anatomical Location / LateralityCollection Method / Volume Collection TimeReceived Time08/01/2025 2:06 PM EDT1 2:08 PM EDT Narrative Authorizing ProviderResult TypeResult StatusCorey Ron Davis MDIMMUNOLOGY ORDERABLESFinal ResultPerforming OrganizationAddressCity/State/ZIP CodePhone Number [facility] [address] [place] [phone], [facility] [phone] [phone] * APTT (08/01/2025 2:06 PM EDT)ComponentValueRef RangeTest MethodAnalysis Time Performed AtPathologist DmliodmqeSIWH61.723.9 - 33.8 sec08/01/2025 2:06 PM EDT [facility] KASI LABComment: ? IV Heparin Therapy Range: ?62.0-94.0 ? Specimen (Source)Anatomical Location / LateralityCollection Method / Volume Collection TimeReceived Time08/01/2025 2:06 PM EDT1 2:08 PM EDT Narrative Authorizing ProviderResult TypeResult StatusCorey Ron Davis MDHEMATOLOGY ORDERABLESFinal ResultPerforming OrganizationAddressCity/State/ZIP CodePhone Number [facility] [address] [place] [phone], [facility] [phone] * Protime-INR (08/01/2025 2:06 PM EDT)ComponentValueRef RangeTest MethodAnalysis TimePerformed AtPathologist AwedjvmmwKolkupd68.711.5 - 14.2 sec08/01/2025 2:06 PM EDDAYTON VA MEDICAL CENTERARD LABINR1. 2:06 PM EDACCESS HOSPITAL [facility]TON LABComment: ? Therapeutic Range: Moderate Anticoagulant Intensity: INR = 2.0-3.0 High Anticoagulant Intensity: INR = 2.5-3.5 Specimen (Source)Anatomical Location / LateralityCollection Method / Volume Collection TimeReceived Time08/01/2025 2:06 PM EDT1 2:08 PM EDT Narrative Authorizing ProviderResult TypeResult StatusCorey Ron Davis MDHEMATOLOGY ORDERABLESFinal ResultPerforming OrganizationAddressCity/State/ZIP CodePhone Number [facility] [address] [phone] * HIV Screen (08/01/2025 2:06 PM EDT)ComponentValueRef RangeTest MethodAnalysis TimePerformed AtPathologist SignatureHIV Ag/ZdUWBKVIUHJZSBMSVDEEQZVT06/29/2025 2:06 PM EDTMERCY LABORATORIESComment: No laboratory evidence of HIV infection. ??If acute HIV infection is suspected, consider testing for HIV-1 RNA. Specimen (Source)Anatomical Location / LateralityCollection Method / Volume Collection TimeReceived Time08/01/2025 2:06 PM EDT1 2:08 PM EDT Narrative Authorizing ProviderResult TypeResult StatusCorey Ron Davis MDIMMUNOLOGY ORDERABLESFinal ResultPerforming OrganizationAddressCity/State/ZIP CodePhone Number [facility] [address] [place] [address], [facility] [phone] [phone] * Hepatitis B Surface Antigen (08/01/2025 2:06 PM EDT)ComponentValueRef Range Test MethodAnalysis TimePerformed AtPathologist SignatureHepatitis B Surface UqDHFJJUHXHJIADOYSDRXFRE37/29/2025 2:06 PM EDTMERCY LABORATORIESSpecimen (Source)Anatomical Location / LateralityCollection Method / VolumeCollection TimeReceived Time08/01/2025 2:06 PM EDT1 2:08 PM EDT Narrative Authorizing ProviderResult TypeResult StatusCorey Ron Davis MDIMMUNOLOGY ORDERABLESFinal ResultPerforming OrganizationAddressCity/State/ZIP CodePhone Number [facility] [address] [place] [phone], [facility] [phone] [facility] [employer] [address] [place] [address] * T4, Free (08/01/2025 2:06 PM EDT)ComponentValueRef RangeTest MethodAnalysis TimePerformed AtPathologist SignatureT4 Free1.00.92 - 1.68 ng/dL08/01/2025 2:06 PM EDTMERCY LABORATORIESSpecimen (Source)Anatomical Location / Laterality Collection Method / VolumeCollection TimeReceived Time08/01/2025 2:06 PM EDT 08/01/2025 2:08 PM EDT Narrative Authorizing ProviderResult TypeResult StatusCorey Ron Davis MDCHEMISTRY ORDERABLESFinal ResultPerforming OrganizationAddressCity/State/ZIP CodePhone Number [facility] LAB [address] [address], [facility] [phone] [facility] [employer] [address] [place] [address] * (ABNORMAL) CBC with Auto Differential (08/01/2025 2:06 PM EDT)ComponentValue Ref RangeTest MethodAnalysis TimePerformed AtPathologist MtsvvacwuCQW14.6(H) 3.5 - 11.0 k/uL08/01/2025 2:06 PM EDTMIndigo ClothingARD LABRBC4.904.00 - 5.20 m/uL08/01/2025 2:06 PM EDTMERCY Smart[employer]aultARD VSNQnrqwcajrr91.012.0 - 16.0 g/dL08/01/2025 2:06 PM EDTMERCY [employer] QBJAgwdwxandx63.936.0 - 46.0 %08/01/2025 2:06 PM EDTMERCY [facility]ARD YNMWRP58.3(L)80.0 - 100.0 fL 08/01/2025 2:06 PM [facility] WABVNG93.5(L)26.0 - 34.0 pg 08/01/2025 2:06 PM [facility] EXHCDKT60.731.0 - 37.0 g/dL 08/01/2025 2:06 PM EDPhoenix Books KASI TVBQCZ81.812.1 - 15.2 %08/01/2025 2:06 PM EDPhoenix Books KASI FJJNyogysvih936230 - 450 k/uL08/01/2025 2:06 PM [facility] LABMPV9.66.0 - 12.0 fL08/01/2025 2:06 PM [facility] K[facility] LABNeutrophils %5747 - 75 %08/01/2025 2:06 PM [facility] K[facility] LABLymphocytes %3115 - 40 %08/01/2025 2:06 PM EDPhoenix Books KASI LABMonocytes %74 - 8 %08/01/2025 2:06 PM [facility] LAB Eosinophils %40 - 5 %08/01/2025 2:06 PM [facility] LABBasophils % 10 - 2 %08/01/2025 2:06 PM [email or web address] [employer] KASI LABImmature Granulocytes %0 0 - 5 %08/01/2025 2:06 PM [facility] K[facility] LABNeutrophils Absolute6.75 2.5 - 7.0 k/uL08/01/2025 2:06 PM EDPhoenix Books KASI LABLymphocytes Absolute3.541.00 - 4.80 k/uL08/01/2025 2:06 PM EDPhoenix Books KASI LAB Monocytes Absolute0.760.00 - 1.00 k/uL08/01/2025 2:06 PM EDPhoenix Books KASI LABEosinophils Absolute0.44(H)0.00 - 0.40 k/uL08/01/2025 2:06 PM [facility] KASI LABBasophils Absolute0.060.00 - 0.20 k/uL08/01/2025 2:06 PM [facility] KASI LABImmature Granulocytes Absolute0.020.00 - 0.30 k/uL08/01/2025 2:06 PM [facility] KASI LABSpecimen (Source)Anatomical Location / LateralityCollection Method / VolumeCollection TimeReceived Time 08/01/2025 2:06 PM EDT1 2:08 PM EDT Narrative Authorizing ProviderResult TypeResult StatusCorey Ron Davis MDHEMATOLOGY ORDERABLESFinal ResultPerforming OrganizationAddressCity/State/ZIP CodePhone Number [facility] [address] [phone] * HCG, Quantitative, (08/01/2025 2:06 PM EDT)ComponentValueRef Range Test MethodAnalysis TimePerformed AtPathologist SignaturehCG Quant<0.2<5 mIU/mL08/01/2025 2:06 PM [facility] KASI LABComment: Non-preg premeno <=5 Postmeno <=8 Male <=3 If HCG results do not concur with clinical observations, additional testing to confirm results is recommended. Specimen (Source)Anatomical Location / LateralityCollection Method / Volume Collection TimeReceived Time08/01/2025 2:06 PM EDT1 2:08 PM EDT Narrative Authorizing ProviderResult TypeResult StatusCorey Ron Davis MDCHEMISTRY ORDERABLESFinal ResultPerforming OrganizationAddressty/State/ZIP CodePhone Number [facility] [address] [place] [phone] [phone] documented in this encounter Visit Diagnoses Not on filedocumented in this encounter Care Teams Team MemberRelationshipSpecialtyStart DateEnd Date Krystal Hines DO [address] [address] PCP - GeneralFamily Medicine05/12/22documented as of this encounter
--- OUTSIDE RECORDS SUMMARY | 2025-08-09 10:30 | XMS_ITS | Encounter Summary ---
Author Organization [facility] Address [address] [place] [address] Care Team Providers Care Diesel Power Mechanic Name Role Phone Bladimir Jennings MD Primary Care Provider [phone] Reason for Visit * ReasonCommentsPre-op VisitEndometrial Biopsy Encounter Details DateTypeDepartmentCare Team (Latest Contact Info)Nobcdjudooc71/06/2025 10:30 AM ESTProcedure Visit [facility] [address] [place] [phone] Carlos Eduardo Davis DO [address] [place] [address] Pre-op examination; Menorrhagia with regular cycle; Abnormal uterine bleeding; Pelvic pain in female; Request for sterilization Social History Tobacco UseTypesPacks/DayYears UsedDateSmoking Tobacco: Never AssessedAlcohol UseStandard Drinks/WeekCommentsNever0 (1 standard drink = 0.6 oz pure alcohol) CommentsNoSex and Gender InformationValueDate RecordedSex Assigned at JfaqyQtsoqq47/20/2023 10:17 AM ESTLegal YzuSrbbfy01/15/2023 7:26 PM EDTGender GkivptumTrbjhn76/20/2023 10:17 AM ESTSexual DbnblxyklxtMtmqxbcu46/20/2023 10:17 AM ESTdocumented as of this encounter Last Filed Vital Signs Vital SignReadingTime TakenCommentsBlood Hknozynk508/7808/09/2025 11:01 AM EST Pulse--Temperature--Respiratory Rate--Oxygen Saturation--Inhaled Oxygen Concentration--Jmdpzl769 kg (316 lb)08/09/2025 11:01 AM AMUItbcta784 cm (5' 3 ) 08/09/2025 11:01 AM ESTBody Mass Index55.9808/09/2025 11:01 AM ESTdocumented in this encounter Progress Notes * Britt Molina - 08/09/2025 10:30 AM ESTAssociated Order(s): Endometrial biopsy Pre-Procedure Diagnose(s): Menorrhagia with regular cycle; Abnormal uterine bleeding; Pelvic pain in female Post-Procedure Diagnose(s): Menorrhagia with regular cycle; Abnormal uterine bleeding; Pelvic pain in female Reason for Appointment: Patient ID: Myra Servin is a 40 y.o. female who presents for Pre-op Visit and Endometrial Biopsy Patient presents today for a Pre Op/Endometrial Biopsy appointment. Patient is scheduled to undergo[place] assisted Bilateral Laparoscopic Salpingectomy and Endometrial Ablation with Staci on 09/07/[address] Davis at [facility]. appointment. MEDICATIONS No current outpatient medications ALLERGIES No Known Allergies PROBLEMS Active Ambulatory Problems Diagnosis Date Noted No Active Ambulatory Problems Resolved Ambulatory Problems Diagnosis Date Noted No Resolved Ambulatory Problems Past Medical History: Diagnosis Date Migraines HISTORY PAST MEDICAL HISTORY SOCIAL HISTORY Past Medical History: Diagnosis Date Migraines Social History Tobacco Use Smoking status: Not on file Smokeless tobacco: Not on file Substance Use Topics Alcohol use: Never Drug use: Not on file FAMILY HISTORY Family History Problem Relation Name Age of Onset No Known Problems Mother Hypertrophic cardiomyopathy Father Diabetes Father Other (Chronic strep) Son Thyroid disease Father's Sister SURGICAL HISTORY History reviewed. No pertinent surgical history. REVIEW OF SYSTEMS Review of Systems: Review of Systems Constitutional: Negative. HENT: Negative. Eyes: Negative. Respiratory: Negative. Cardiovascular: Negative. Gastrointestinal: Negative. Genitourinary: Positive for menstrual problem and pelvic pain. Musculoskeletal: Negative. Skin: Negative. Neurological: Negative. All other systems reviewed and are negative. Hematological: Negative. Endocrine: Negative. Allergic/Immunologic: Negative. OBJECTIVE Objective: Physical Exam Constitutional: Appearance: Normal appearance. She is well-developed. Genitourinary: Vulva normal. Cardiovascular: Rate and Rhythm: Normal rate and regular rhythm. Pulmonary: Effort: Pulmonary effort is normal. Breath sounds: Normal breath sounds. Abdominal: General: Bowel sounds are normal. There is no distension. Palpations: Abdomen is soft. Tenderness: There is no abdominal tenderness. There is no guarding or rebound. Musculoskeletal: General: No swelling. Normal range of motion. Right lower leg: No edema. Left lower leg: No edema. Neurological: Mental Status: She is alert and oriented to person, place, and time. Skin: General: Skin is warm and dry. Psychiatric: Mood and Affect: Mood normal. Behavior: Behavior normal. Vitals and nursing note reviewed. Exam conducted with a bingo checker present. Vitals: Estimated body mass index is 55.98 kg/m?? as calculated from the following: Height as of this encounter: 5' 3 . Weight as of this encounter: 316 lb. BP: 130/78 Patient's last menstrual period was 07/17/2025 (exact date). ASSESSMENT & PLAN Assessment/Plan Encounter Diagnosis: ICD-10-CM 1. Pre-op examination Z01.818 2. Menorrhagia with regular cycle N92.0 POCT , urine manually resulted Endometrial biopsy 3. Abnormal uterine bleeding N93.9 POCT , urine manually resulted Endometrial biopsy 4. Pelvic pain in female R10.20 POCT , urine manually resulted Endometrial biopsy 5. Request for sterilization Z30.2 Endometrial biopsy Date/Time: 08/09/2025 11:31 AM Performed by: Carlos Eduardo Davis DO Authorized by: Carlos Eduardo Davis DO Consent: Consent obtained: written Consent given by: patient Patient agrees, verbalizes understanding, and wants to proceed: yes Indications: Indications: other menstrual disorder and abnormal bleeding from female genital tract Pre-procedure: Urine test: negative Procedure: A bimanual exam was performed: no Tenaculum used: yes A local block was performed: no Local anesthetic: none Cervix dilated: no Number of passes: 1 Findings: Cervix: normal Specimen collected: specimen collected and sent to pathology Patient tolerance: tolerated well, no immediate complications EMBX: Patient was placed in dorsal lithotomy position with feet in stirrups. A sterile speculum was placed into the vagina and the cervix was visualized. The cervix was grasped with a single tooth tenaculum. The endometrial pipette was placed through the cervix into the uterus, endometrial curettage was performed and sampling was obtained, endometrial curettings were placed in formalin, and single tooth tenaculum was removed. Excellent hemostasis was assured. All instruments were removed from vagina. Pre Op: Patient is doing well but has desire for sterilization and has complaints of bleeding and pelvic pain. Patient has tried hormone therapy in the past but all attempts to subside patients issues of bleeding have failed. I have discussed conservative management vs. surgical management with the patientin detail and patient desires surgical management at this time. Patient has voiced understanding that a Bilateral Salpingectomy is considered to be permanent and patient will undergo [place] assisted Bilateral Laparoscopic Salpingectomy & Endometrial Ablation with Staci on 09/07/2025. Surgical consents were signed, mmc was reviewed, and patient is to proceed to [facility] OR. Follow Up: Patient is to follow up between 1-2 weeks post op to assess proper healing and recovery from procedure. Documented by Edwige Christy LPN on behalf of: Carlos Eduardo Davis DO documented in this encounter Plan of Treatment DateTypeDepartmentCare Team (Latest Contact Info)Icxwicvprpy07/06/2026 9:10 AM ESTProcedure Visit [facility] [address] [address] Carlos Eduardo Davis DO [address] [place] [address] documented as of this encounter Procedures Procedure NamePriorityDate/TimeAssociated DiagnosisCommentsENDOMETRIAL BIOPSY Thoohio0608/09/2025 11:31 AM EST Menorrhagia with regular cycle Abnormal uterine bleeding Pelvic pain in female POCT , ZZVLWMngtcal48/06/2025 11:02 AM EST Menorrhagia with regular cycle Abnormal uterine bleeding Pelvic pain in female documented in this encounter Results * Endometrial biopsy (08/09/2025 11:31 AM EST) Britt Alves - 08/09/2025 11:31 AM EST Britt Molina 08/13/2025 1:51 PM Endometrial biopsy Date/Time: 08/09/2025 11:31 AM Performed by: Carlos Eduardo Davis DO Authorized by: Carlos Eduardo Davis DO ?? Consent: ??Consent obtained: written ??Consent given by: patient ??Patient agrees, verbalizes understanding, and wants to proceed: yes ?? Indications: ??Indications: other menstrual disorder and abnormal bleeding from female genital tract ?? Pre-procedure: ??Urine test: negative ?? Procedure: ??A bimanual exam was performed: no ?Tenaculum used: yes ?A local block was performed: no ?Local anesthetic: none ??Cervix dilated: no ?Number of passes: 1 Findings: ??Cervix: normal ?Specimen collected: specimen collected and sent to pathology ?Patient tolerance: tolerated well, no immediate complications Authorizing ProviderResult TypeResult StatusCorey [facility] ORDERABLESFinal Result * POCT , urine manually resulted (08/09/2025 11:02 AM EST)Component ValueRef RangeTest MethodAnalysis TimePerformed AtPathologist SignaturePreg Test, UrNegativeNegativeSpecimen (Source)Anatomical Location / Laterality Collection Method / VolumeCollection TimeReceived DutlVwlex78/06/2025 11:02 AM EST Narrative Authorizing ProviderResult TypeResult StatusCarlos Eduardo Davis DOPOINT OF CARE TEST ENTER/EDIT ORDERABLESFinal Result documented in this encounter Visit Diagnoses Diagnosis Pre-op examination Menorrhagia with regular cycle Abnormal uterine bleeding Unspecified disorder of menstruation and other abnormal bleeding from female genital tract Pelvic pain in female Unspecified symptom associated with female genital organs Request for sterilization documented in this encounter Care Teams Team MemberRelationshipSpecialtyStart DateEnd Date Bladimir Jennings MD [address] [place] [address] PCP - GeneralFamily Medicine02/09/23documented as of this encounter
--- OUTSIDE RECORDS SUMMARY | 2025-08-15 13:36 | XMS_ITS | Encounter Summary ---
Author Organization [facility] Address [address] [place] [address] Care Team Providers Care Adult Educator Name Role Phone Bladimir Jennings MD Primary Care Provider Encounter Details DateTypeDepartmentCare Team (Latest Contact Info)Hnkypdfexgt36/14/2025linisync Result Encounter [facility] Unsolicited Briana Goldman, KEG RAISER [address] [facility] [place] [address] Social History Tobacco UseTypesPacks/DayYears UsedDateSmoking Tobacco: Never AssessedAlcohol UseStandard Drinks/WeekCommentsNever0 (1 standard drink = 0.6 oz pure alcohol) CommentsNoSex and Gender InformationValueDate RecordedSex Assigned at LcrdrZpkfic26/20/2023 10:17 AM ESTLegal LwsFdhcgz46/15/2023 7:26 PM EDTGender QjtnfhktYuoalw85/20/2023 10:17 AM ESTSexual NewbjynoaklLypedygj17/20/2023 10:17 AM ESTdocumented as of this encounter Plan of Treatment DateTypeDepartmentCare Team (Latest Contact Info)Kcorypujarv76/06/2026 9:10 AM ESTProcedure Visit [facility] [address] [facility] [place] [address] Carlos Eduardo Davis DO [address] [facility] [place] [address] documented as of this encounter Procedures Procedure NamePriorityDate/TimeAssociated DiagnosisCommentsUS PELVIS COMPLETE NON-OB TRANSABDOMINAL AND SOBQJTLGILSO36/14/2025 11:04 AM EDT documented in this encounter Results * US PELVIS COMPLETE NON-OB TRANSABDOMINAL AND TRANSVAGINAL (07/17/2025 11:04 AM EDT)Anatomical RegionLateralityModalityOtherSpecimen (Source)Anatomical Location / LateralityCollection Method / VolumeCollection TimeReceived Time 07/17/2025 11:04 AM EDT Narrative 08/14/2025 7:53 PM EST EXAM: US PELVIS COMPLETE NON-OB TRANSABDOMINAL AND TRANSVAGINAL HISTORY: Examination for, follow-up COMPARISON: None. FINDINGS: Uterus: 10.3 x 4.9 x 6.4 cm Right ovary: 2.7 x 2.5 x 1.5 cm. Left ovary: 3.9 x 3.1 x 2.7 cm. Endometrial thickness 6.6 mm. 3.4 cm benign left ovarian cyst with thin wall, no internal septations or nodularity. IMPRESSION: Physiologic small left ovarian cyst. Interpreted by: Gabriel Fatima Jr., MD Signed by: Gabriel Fatima Jr., MD 07/17/25 Final result Procedure Note Radiology, Radiologist, MD - 08/14/2025 EXAM: US PELVIS COMPLETE NON-OB TRANSABDOMINAL AND TRANSVAGINAL HISTORY: Examination for, follow-up COMPARISON: None. FINDINGS: Uterus: 10.3 x 4.9 x 6.4 cm Right ovary: 2.7 x 2.5 x 1.5 cm. Left ovary: 3.9 x 3.1 x 2.7 cm. Endometrial thickness 6.6 mm. 3.4 cm benign left ovarian cyst with thin wall, no internal septations or nodularity. IMPRESSION: Physiologic small left ovarian cyst. Interpreted by: Gabriel Fatima Jr., MD Signed by: Gabriel Fatima Jr., MD 07/17/25 Final result Authorizing ProviderResult TypeResult StatusKristina Jones NPCLINISYNC IMAGING Final Result documented in this encounter Visit Diagnoses Not on filedocumented in this encounter Care Teams Team MemberRelationshipSpecialtyStart DateEnd Date Bladimir Jennings MD [address] [place] [address] PCP - GeneralFamily Medicine02/09/23documented as of this encounter
--- OUTSIDE RECORDS SUMMARY | 2025-08-15 13:37 | XMS_ITS | Encounter Summary ---
Author Organization [facility] Address [address] [facility] [place] [address] Care Team Providers Care District Attorney Name Role Phone Bladimir Jennings MD Primary Care Provider [phone] Encounter Details DateTypeDepartmentCare Team (Latest Contact Info)Lixayrqxrpq42/11/2025bstract [facility] [address] [facility] [address] Irlanda Serrato MA Social History Tobacco UseTypesPacks/DayYears UsedDateSmoking Tobacco: Never AssessedAlcohol UseStandard Drinks/WeekCommentsNever0 (1 standard drink = 0.6 oz pure alcohol) CommentsNoSex and Gender InformationValueDate RecordedSex Assigned at DmtawJhfbwb40/20/2023 10:17 AM ESTLegal BunJsyadp68/15/2023 7:26 PM EDTGender EgdyyzerGxjbvl67/20/2023 10:17 AM ESTSexual AzxafyfjroyReldlxhp98/20/2023 10:17 AM ESTdocumented as of this encounter Plan of Treatment DateTypeDepartmentCare Team (Latest Contact Info)Lksbqxkymlm81/06/2026 9:10 AM ESTProcedure Visit [facility] [address] [facility] [address] Carlos Eduardo Davis DO [address] [facility] [address] [place], [place] [id number] documented as of this encounter Visit Diagnoses Not on filedocumented in this encounter Care Teams Team MemberRelationshipSpecialtyStart DateEnd Date Bladimir Jennings MD [address] [place] [address] PCP - GeneralFamily Medicine02/09/23documented as of this encounter
--- OUTSIDE RECORDS SUMMARY | 2025-08-15 13:37 | XMS_ITS | Encounter Summary ---
Author Organization [facility] Address [address] [place] [address] Care Team Providers Care Latin American Studies Director Name Role Phone Bladimir Jennings MD Primary Care Provider Encounter Details DateTypeDepartmentCare Team (Latest Contact Info)Cwioksrdwuc61/06/2025Travel Social History Tobacco UseTypesPacks/DayYears UsedDateSmoking Tobacco: Never AssessedAlcohol UseStandard Drinks/WeekCommentsNever0 (1 standard drink = 0.6 oz pure alcohol) CommentsNoSex and Gender InformationValueDate RecordedSex Assigned at TabheJiknrh54/20/2023 10:17 AM ESTLegal ZyzTajlmp07/15/2023 7:26 PM EDTGender LgsswvkmQqzhsv36/20/2023 10:17 AM ESTSexual BzvnjcnitgeVwtymayg60/20/2023 10:17 AM ESTdocumented as of this encounter Plan of Treatment DateTypeDepartmentCare Team (Latest Contact Info)Hltxhfpohqt09/06/2026 9:10 AM ESTProcedure Visit [facility] [address] [place] [address] Carlos Eduardo Davis DO [address] [place] [address] documented as of this encounter Visit Diagnoses Not on filedocumented in this encounter Care Teams Team MemberRelationshipSpecialtyStart DateEnd Date Bladimir Jennings MD [address] [place] [address] PCP - GeneralFamily Medicine02/09/23documented as of this encounter
--- OUTSIDE RECORDS SUMMARY | 2025-08-15 13:37 | XMS_ITS | Clinical Summary ---
Author Organization [facility] Address [address] [place] [address] Care Team Providers Care Proposal Consultant Name Role Phone Krystal Hines DO Primary Care Provider Allergies No known active allergies Medications MedicationSigDispense QuantityRefillsLast FilledStart DateEnd DateStatus propranoloL (INDERAL) 10 MG tablet Take 1 (one) tablet (10 mg total) by mouth 4 (four) times a day .Active diltiazem (CARDIZEM CD) 180 MG 24 hr capsule Take 1 (one) capsule (180 mg total) by mouth daily .Active escitalopram oxalate (LEXAPRO) 5 MG tablet Take 1 (one) tablet (5 mg total) by mouth daily .Active semaglutide (OZEMPIC SUBQ) Inject under the skin .Active Active Problems No known active problems Social History Tobacco UseTypesPacks/DayYears UsedDateSmoking Tobacco: NeverPassive Smoke Exposure: NeverSmokeless Tobacco: Never Tobacco Cessation:Counseling Given: Not Answered Alcohol UseStandard Drinks/WeekCommentsYes0 (1 standard drink = 0.6 oz pure alcohol)occationallyCommentsUnknownSex and Gender InformationValueDate RecordedSex Assigned at BirthNot on fileLegal WniUghnhb54/06/2025 3:58 PM EST Gender IdentityNot on fileSexual OrientationNot on file Last Filed Vital Signs Vital SignReadingTime TakenCommentsBlood Rbtksbcb641/9403 10:13 AM EST Ppsuw4007 10:13 AM ESTTemperature--Respiratory Rate--Oxygen Saturation 97%12/06/2024 10:01 AM ESTInhaled Oxygen Concentration--Zeddkv587.3 kg (316 lb) 12/06/2024 10:01 AM QEGMvhdja970.5 cm (5' 2 )12/06/2024 10:01 AM ESTBody Mass Index57.8012/06/2024 10:01 AM EST Plan of Treatment Health MaintenanceDue DateLast DoneCommentsDepression Screening/Follow-Up (PHQ-2/9)1999HIV Bhplllmfb53/10/2002Hepatitis C Aepjswyqx18/10/2005 HPV/Luezis1305/13/2017Tetanus: Every 10yrs (RETIRED)/03/2013COVID-19 Vaccine ( season)/Influenza Vaccine (#1)2025 Wellness Visit, 3Cervical Cancer Screening 10/02/2027Pap Smear, 3Pneumococcal VaccineAged Out No longer eligible based on patient's age to complete this topic Insurance * Guarantor: Cheko Servin TypeRelation to PatientDate of BirthPhone Billing AddressPersonal/KoicgoXnll1985 [address] [address] MemberSubscriberPlan / Payer (Effective 2024-Present)Name:Myra Servin Relation to Subscriber:SelfName:Myra Servin Payer ID:[id number] (NAIC) Type:Not on file Address: [facility] [id number] [place] [id number] Care Teams Team MemberRelationshipSpecialtyStart DateEnd Date Krystal Hines DO [address] [place] [address] PCP - GeneralFamily Medicine12/06/24
--- OUTSIDE RECORDS SUMMARY | 2025-08-15 13:37 | XMS_ITS | Encounter Summary ---
Author Organization [facility] Address [address] [place] [address] Care Team Providers Care Skidder Lever Operator Name Role Phone Bladimir Jennings MD Primary Care Provider [phone] Encounter Details DateTypeDepartmentCare Team (Latest Contact Info)Fgfidrgmxfg25/07/2025Telephone [facility] [address] [facility] [place] [address] Carlos Eduardo Davis, [address] [facility] [address] [place], [facility] Social History Tobacco UseTypesPacks/DayYears UsedDateSmoking Tobacco: Never AssessedAlcohol UseStandard Drinks/WeekCommentsNever0 (1 standard drink = 0.6 oz pure alcohol) CommentsNoSex and Gender InformationValueDate RecordedSex Assigned at OopxdScwvry25/20/2023 10:17 AM ESTLegal DngMrudlr49/15/2023 7:26 PM EDTGender PguxtnotKphfyv58/20/2023 10:17 AM ESTSexual ItssqlfighdVzrufmfm61/20/2023 10:17 AM ESTdocumented as of this encounter Miscellaneous Notes * Telephone Encounter - Nini Garrido LPN - 08/10/2025 10:17 AM EST Patient called notified of results and she states dr was going to send in a gel also advised all set and hoe to do medication. PVU and scripts sent. documented in this encounter Plan of Treatment DateTypeDepartmentCare Team (Latest Contact Info)Hdqrhuottzk70/03/2026 9:10 AM ESTProcedure Visit [facility] [address] [facility] [place] [address] Carlos Eduardo Davis DO [address] [facility] [place] [address] documented as of this encounter Visit Diagnoses Diagnosis BV (bacterial vaginosis) Unspecified vaginitis and vulvovaginitis documented in this encounter Care Teams Team MemberRelationshipSpecialtyStart DateEnd Date Bladimir Jennings MD [address] [place] [address] PCP - GeneralFamily Medicine02/09/23documented as of this encounter
--- OUTSIDE RECORDS SUMMARY | 2025-08-15 13:37 | XMS_ITS | Clinical Summary ---
Author Organization [facility] Address [address] [place] [address] Care Team Providers Care News Broadcaster Name Role Phone Bladimir Jennings MD Primary Care Provider [phone] Allergies No known active allergies Medications MedicationSigDispense QuantityRefillsLast FilledStart DateEnd DateStatus metroNIDAZOLE (Flagyl) 500 MG tablet Indications:BV (bacterial vaginosis)Take 1 tablet (500 mg) by mouth in the morning and 1 tablet (500 mg) before bedtime. Do all this for 7 days. Do not drink alcohol while taking this medication. 14 tablet 511/5Active metroNIDAZOLE (Metrogel) 0.75 % vaginal gel Indications:BV (bacterial vaginosis)Use vaginally nightly for 5 days, then twice weekly thereafter for 4 months 140 g 5Active azithromycin (Zithromax) 500 MG tablet Indications:Bacterial infection due to mycoplasmaDay 1: Take 2 tablets PO onetime dose; Day 2,3,4: Take 1 tablet daily 5 tablet /03/2025Discontinued(Therapy completed) mupirocin (Bactroban) 2 % ointment Indications:RashApply topically in the morning and in the evening and before bedtime. Do all this for 10 days. 1 g /Expired metroNIDAZOLE (Flagyl) 500 MG tablet Indications:BV (bacterial vaginosis)Take 1 tablet (500 mg) by mouth in the morning and 1 tablet (500 mg) before bedtime. Do all this for 7 days. Do not drink alcohol while taking this medication. 14 tablet /Expired fluconazole (Diflucan) 150 MG tablet Indications:BV (bacterial vaginosis)Take 1 tablet (150 mg) by mouth every 3rd (third) day for 2 doses 2 tablet Expired Encounters DateTypeDepartmentCare UajjLgbhpvbeddr44/11/2025bstract [facility] [address] [place] [address] Irlanda Serrato MA 08/10/2025Telephone [facility] OBGYGuerline [address] [place] [address] Carlos Eduardo Davis DO 08/09/2025 10:30 AM ESTProcedure Visit [place] [address] Carlos Eduardo Davis DO Pre-op examination; Menorrhagia with regular cycle; Abnormal uterine bleeding; Pelvic pain in female; Request for sjudpcxdhujnk04/06/1386Kmhpsf29/16/2025Telephone [facility] OBREY [address] [place] [address] Carlos Eduardo Davis, 07/17/2025 2:50 PM EDTOffice Visit [facility] [address] [place] [address] [place] [address] Carlos Eduardo Davis DO Encounter for follow-up; Mycoplasma infection; Menorrhagia with regular cycle; Sexually transmitted disease exposure; Fatty liver; Rash07/17/2025linisync Result Encounter [facility] Department Unsolicited Briana Goldman NP 07/17/2025amboo flowsheet [facility] [address] [place] [address] Carlos Eudardo Davis, 07/09/2025bstract [facility] [address] [place] [address] Carlos Eduardo Davis, DO 06/14/2025bstract [facility] [address] [place] [address] Carlos Eduardo Davis DO 06/13/2025Telephone [facility] [address] [place] [address] Katlin BasurtoJULIANNE 06/11/2025 11:10 AM EDTOffice Visit [facility] [address] [place] [address] Briana Goldman NP Encounter for follow-up; Cyst of right ovary; Irritation of both eyes06/11/2025External Result Encounter [facility] External [facility] Unsolicited Briana Goldman NP 06/11/2025amboo flowsheet [facility] [address] [place] [address] Briana Goldman NP from Last 3 Months Family History Medical HistoryRelationNameCommentsDiabetesFatherHypertrophic cardiomyopathy FatherThyroid diseaseFather's SisterNo Known ProblemsMotherChronic strepSon TgmpndltKvnaTzsvrgIawxdqzkMdqnqzd9AdcgbzPdrmuJwhhjb's SisterMotherAliveSonAlive2 Social History Tobacco UseTypesPacks/DayYears UsedDateSmoking Tobacco: Never AssessedAlcohol UseStandard Drinks/WeekCommentsNever0 (1 standard drink = 0.6 oz pure alcohol) CommentsNoSex and Gender InformationValueDate RecordedSex Assigned at PgoutNtoeer10/20/2023 10:17 AM ESTLegal BozXzvopp93/15/2023 7:26 PM EDTGender UizdogcpAyqkzb67/20/2023 10:17 AM ESTSexual JlebuhabvxnGrtgbcns91/20/2023 10:17 AM EST Last Filed Vital Signs Vital SignReadingTime TakenCommentsBlood Mzkisdux296/7808/09/2025 11:01 AM EST Pulse--Temperature--Respiratory Rate--Oxygen Saturation--Inhaled Oxygen Concentration--Nbisgz515 kg (316 lb)08/09/2025 11:01 AM UZYGhbamv038 cm (5' 3 ) 08/09/2025 11:01 AM ESTBody Mass Index55.9808/09/2025 11:01 AM EST Plan of Treatment DateTypeDepartmentCare Team (Latest Contact Info)Ezhtuiyzzwh80/06/2026 9:10 AM ESTProcedure Visit [facility] [address] [place] [phone] SusanCarlos Eduardo hameed, [address] [place] [address] Health MaintenanceDue DateLast DoneCommentsCOVID-19 Vaccine ( season) Influenza Vaccine (#1)2025ervical Cancer Screening 10/02/2029HPV/Onjfox5310/02/2029Pap Smear, 08/23/2023 Pneumococcal Vaccine: Pediatrics (0 to 5 Years) and At-Risk Patients (6 to 64 Years)Aged OutNo longer eligible based on patient's age to complete this topic Procedures Procedure NamePriorityDate/TimeAssociated DiagnosisCommentsRECURRENT VAGINITIS (HTRX)Xhexpxl1508/09/2025 12:04 PM EST ENDOMETRIAL HQGJXEFtyeiug03/06/2025 11:31 AM EST Menorrhagia with regular cycle Abnormal uterine bleeding Pelvic pain in female POCT , IAEQONbdfgav01/06/2025 11:02 AM EST Menorrhagia with regular cycle Abnormal uterine bleeding Pelvic pain in female RECURRENT VAGINITIS (HTRX)Gkmhojs7907/17/2025 4:02 PM EDT US PELVIS COMPLETE NON-OB TRANSABDOMINAL AND NBODAIWCELLO17/14/2025 11:04 AM EDT POCT URINALYSIS XYUDCYZLXmpbvgw99/08/2025 12:45 PM EDT Encounter for follow-up Cyst of right ovary COMPLICATED GENITOURINARY INFECTION (HTRX)Sxfofeq4606/11/2025 12:37 PM EDT PAP OGKVPZaomlop29/30/2024 12:00 AM ESTfrom Last 3 Months or Most Recently Relevant to Health Maintenance Results * (ABNORMAL) RECURRENT VAGINITIS (HTRX) (08/09/2025 12:04 PM EST) Only the most recent of2 resultswithin the time period is included. ComponentValueRef RangeTest MethodAnalysis TimePerformed AtPathologist Signature ATOPOBIUM BOISZQV90.212(A)19.961 - 24.689 ppm08/10/2025 6:54 AM ESTHealthTrackRx at [facility]Ind[facility] HospitalATOPOBIUM VAGINAEDetected(A)19.961 - 24.689 ppm08/10/2025 6:54 AM EST [facility] HospitalBVAB 2,3 (BACTERIAL VAGINOSIS ASSOCIATED BACTERIA 2, 3); MOBILUNCUS VMO690.961 - 24.689 ppm08/10/2025 6:54 AM ESTHealthTrackRx at LabPort BVAB 2,3 (BACTERIAL VAGINOSIS ASSOCIATED BACTERIA 2, 3); MOBILUNCUS SPPNot Yuldtbkl53.961 - 24.689 ppm08/10/2025 6:54 AM ESTHealthTrackRx at LabPortCANDIDA ALBICANS, PARAPSILOSIS, JRLXIPQAIK652.000 - 30.347 ppm08/10/2025 6:54 AM EST [facility] LabPortCANDIDA ALBICANS, PARAPSILOSIS, TROPICALISNot Detected 23.000 - 30.347 ppm08/10/2025 6:54 AM ESTHealthTrackRx at LabPortCANDIDA PMWHJUGM541.000 - 31.618 ppm08/10/2025 6:54 AM ESTHealthTrackRx at LabPort HERNANDEZ GLABRATANot Puntpdbi40.000 - 31.618 ppm08/10/2025 6:54 AM EST [facility] LabPortCANDIDA RIGNYH913.000 - 30.873 ppm08/10/2025 6:54 AM EST [facility] LabPortCANDIDA KRUSEINot Raeinrvf58.000 - 30.873 ppm1104/2025 6:54 AM ESTHealthTrackRx at LabPortCHLAMYDIA OSADXNRRJWJ094.000 - 31.586 ppm 08/10/2025 6:54 AM ESTHealthTrackRx at LabPortCHLAMYDIA TRACHOMATISNot Detected 23.000 - 31.586 ppm08/10/2025 6:54 AM ESTHealthTrackRx at LabPortGARDNERELLA DZEVDRFRK92.372(A)19.961 - 24.689 ppm08/10/2025 6:54 AM ESTHealthTrackRx at LabPortGARDNERELLA VAGINALISDetected(A)19.961 - 24.689 ppm08/10/2025 6:54 AM EST [facility] at LabPortMEGASPHAERA (TYPES 1, 2)019.961 - 24.689 ppm08/10/2025 6:54 AM ESTHealthTrackRx at LabPortMEGASPHAERA (TYPES 1, 2)Not Iewacmae73.961 - 24.689 ppm08/10/2025 6:54 AM ESTHealthTrackRx at LabPortNEISSERIA GONORRHOEAE0 23.000 - 32.587 ppm08/10/2025 6:54 AM ESTHealthTrackRx at LabPortNEISSERIA GONORRHOEAENot Ehzuohio65.000 - 32.587 ppm08/10/2025 6:54 AM ESTHealthTrackRx at LabPortTRICHOMONAS ENNZINFJB220.000 - 31.995 ppm08/10/2025 6:54 AM EST [facility] LabPortTRICHOMONAS VAGINALISNot Ozhfvqos40.000 - 31.995 ppm 08/10/2025 6:54 AM ESTHealthTrackRx at LabPortMYCOPLASMA GMVPJNBUFY100.961 - 24.689 ppm08/10/2025 6:54 AM ESTHealthTrackRx at LabPortMYCOPLASMA GENITALIUMNot Vguzrmsp41.961 - 24.689 ppm08/10/2025 6:54 AM ESTHealthTrackRx at LabPortERMB, C; MEFA22.342(A)23.000 - 27.500 ppm08/10/2025 6:54 AM ESTHealthTrackRx at [facility] HospitalMB, C; MEFADetected(A)23.000 - 27.500 ppm08/10/2025 6:54 AM EST [facility] HospitalTET B, TET M20.896(A)23.000 - 27.500 ppm08/10/2025 6:54 AM ESTHealthTrackRx at [facility] HospitalTET B, TET MDetected(A)23.000 - 27.500 ppm 08/10/2025 6:54 AM ESTHealthTrackRx at [facility] HospitalSpecimen (Source)Anatomical Location / LateralityCollection Method / VolumeCollection TimeReceived Time Vuogfd7008/09/2025 12:04 PM EST08/10/2025 1:59 AM EST Narrative Authorizing ProviderResult TypeResult Christiano Davis DOLAB BLOOD ORDERABLES Final ResultPerforming OrganizationAddressCity/State/[facility] CodePhone Number [facility] [place] [id number] [place] [address] * Endometrial biopsy (08/09/2025 11:31 AM EST) Narrative Britt Molina - 08/09/2025 11:31 AM EST Britt Molina [...] well, no immediate complications Authorizing ProviderResult TypeResult StatusCarlos Eduardo Davis DOIN CLINIC/BEDSIDE ORDERABLESFinal Result * POCT , urine manually resulted (08/09/2025 11:02 AM EST)Component ValueRef RangeTest MethodAnalysis TimePerformed AtPathologist SignaturePreg Test, UrNegativeNegativeSpecimen (Source)Anatomical Location / Laterality Collection Method / VolumeCollection TimeReceived VtvtQmsbz68/06/2025 11:02 AM EST Narrative Authorizing ProviderResult TypeResult StatusCorey Susan DOPOINT OF CARE TEST ENTER/EDIT ORDERABLESFinal Result * US PELVIS COMPLETE NON-OB TRANSABDOMINAL AND [...] MD 07/17/25 Final result Authorizing ProviderResult TypeResult StatusBriana Goldman NPCLINISYNC IMAGING Final Result * POCT urinalysis dipstick manually resulted (06/11/2025 12:45 PM EDT)Component ValueRef RangeTest MethodAnalysis TimePerformed AtPathologist SignatureColor, UAYellowClarity, UAClearGlucose, UANegativeNegative - 2000(110) ++++ mg/dL Bilirubin, UANegativeNegative - 4(70) +++ mg/dLKetones, UANegativeNegative - 160(16) ++++ mg/dLSpec Grav, UA1.0151 - 1.03Blood, UANegativeNegative - 50 Jonel/mcLpH, UA6.05 - 9Protein, UANegativeNegative - 2000(20) ++++ mg/dL Urobilinogen, UA0.20.2 - 12 mg/dLLeukocytes, UANegativeNegative - 500+++ Blaine/mcLNitrite, UANegativeNegative - PositiveSpecimen (Source)Anatomical Location / LateralityCollection Method / VolumeCollection TimeReceived Time Urine06/11/2025 12:45 PM EDT Narrative Authorizing ProviderResult TypeResult StatusBriana Goldman NPPOINT OF CARE TEST ENTER/EDIT ORDERABLESFinal Result * (ABNORMAL) COMPLICATED GENITOURINARY INFECTION (HTRX) (06/11/2025 12:37 PM EDT)ComponentValueRef RangeTest MethodAnalysis TimePerformed AtPathologist SignatureACINETOBACTER GWUWLHPL530.961 - 24.689 ppm06/12/2025 7:54 AM EDT [facility] HospitalACINETOBACTER BAUMANIINot Wfpysarh48.961 - 24.689 ppm 06/12/2025 7:54 AM EDTHealthTrackRx at [facility]Ind[facility] HospitalCANDIDA ALBICANS, PARAPSILOSIS, PJUHPTFGOA773.000 - 30.347 ppm06/12/2025 7:54 AM EDTHealthTrackRx at [facility] HERNANDEZ ALBICANS, PARAPSILOSIS, TROPICALISNot Fsdjvvoo38.000 - 30.347 ppm 06/12/2025 7:54 AM EDTHealthTrackRx at LabPortCANDIDA BYLPANHS867.000 - 31.618 ppm06/12/2025 7:54 AM EDTHealthTrackRx at LabPortCANDIDA GLABRATANot Detected 23.000 - 31.618 ppm06/12/2025 7:54 AM EDTHealthTrackRx at LabPortCANDIDA MVRVQU698.000 - 30.873 ppm06/12/2025 7:54 AM EDTHealthTrackRx at LabPort HERNANDEZ KRUSEINot Ewxzjodq34.000 - 30.873 ppm06/12/2025 7:54 AM EDT [facility] at LabPortCHLAMYDIA SHZAQEQYSRK004.000 - 31.586 ppm06/12/2025 7:54 AM EDTHealthTrackRx at LabPortCHLAMYDIA TRACHOMATISNot Icicrdas58.000 - 31.586 ppm06/12/2025 7:54 AM EDTHealthTrackRx at LabPortCITROBACTER FREUNDII0 23.000 - 32.015 ppm06/12/2025 7:54 AM EDTHealthTrackRx at LabPortCITROBACTER FREUNDIINot Ywtbysmc65.000 - 32.015 ppm06/12/2025 7:54 AM EDTHealthTrackRx at LabPortENTEROBACTER AEROGENES, GKQEUKK642.000 - 32.290 ppm06/12/2025 7:54 AM EDTHealthTrackRx at LabPortENTEROBACTER AEROGENES, CLOACAENot Jxqoomlp54.000 - 32.290 ppm06/12/2025 7:54 AM EDTHealthTrackRx at LabPortENTEROCOCCUS FAECALIS, YZWPIIN13.918(A)26.000 - 33.043 ppm06/12/2025 7:54 AM EDTHealthTrackRx at LabPortENTEROCOCCUS FAECALIS, FAECIUMDetected(A)26.000 - 33.043 ppm06/12/2025 7:54 AM EDTHealthTrackRx at LabPortESCHERICHIA TYLO350.000 - 28.500 ppm 06/12/2025 7:54 AM EDTHealthTrackRx at LabPortESCHERICHIA COLINot Detected 23.000 - 28.500 ppm06/12/2025 7:54 AM EDTHealthTrackRx at LabPortKLEBSIELLA PNEUMONIAE, UOXHSXB432.000 - 31.865 ppm06/12/2025 7:54 AM EDTHealthTrackRx at LabPortKLEBSIELLA PNEUMONIAE, OXYTOCANot Yvbsrjrs95.000 - 31.865 ppm06/12/2025 7:54 AM EDTHealthTrackRx at LabPortMORGANELLA YJSUYPBQ741.961 - 24.689 ppm 06/12/2025 7:54 AM EDTHealthTrackRx at LabPortMORGANELLA MORGANIINot Detected 19.961 - 24.689 ppm06/12/2025 7:54 AM EDTHealthTrackRx at LabPortNEISSERIA VUJEHSHKNDN688.000 - 32.587 ppm06/12/2025 7:54 AM EDTHealthTrackRx at LabPort NEISSERIA GONORRHOEAENot Vpwqpqke59.000 - 32.587 ppm06/12/2025 7:54 AM EDT [facility] at LabPortPROTEUS MIRABILIS, YEGJNGUH949.000 - 28.500 ppm 06/12/2025 7:54 AM EDTHealthTrackRx at LabPortPROTEUS MIRABILIS, VULGARISNot Ziymujpm19.000 - 28.500 ppm06/12/2025 7:54 AM EDTHealthTrackRx at LabPort PSEUDOMONAS AHTRPXXMAX831.000 - 31.801 ppm06/12/2025 7:54 AM EDTHealthTrackRx at LabPortPSEUDOMONAS AERUGINOSANot Wwtmmbwh30.000 - 31.801 ppm06/12/2025 7:54 AM EDTHealthTrackRx at LabPortSERRATIA OXSACJXDAT486.000 - 31.581 ppm 06/12/2025 7:54 AM EDTHealthTrackRx at LabPortSERRATIA MARCESCENSNot Detected 23.000 - 31.581 ppm06/12/2025 7:54 AM EDTHealthTrackRx at LabPort STAPHYLOCOCCUS EYDDIV618.000 - 31.595 ppm06/12/2025 7:54 AM EDTHealthTrackRx at LabPortSTAPHYLOCOCCUS AUREUSNot Yqkanswf57.000 - 31.595 ppm06/12/2025 7:54 AM EDTHealthTrackRx at LabPortSTREPTOCOCCUS AGALACTIAE (GROUP B STREP)026.000 - 32.435 ppm06/12/2025 7:54 AM EDTHealthTrackRx at LabPortSTREPTOCOCCUS AGALACTIAE (GROUP B STREP)Not Zmpuwuht86.000 - 32.435 ppm06/12/2025 7:54 AM EDTHealthTrackRx at LabPortSTREPTOCOCCUS PYOGENES (GROUP A STREP)019.961 - 24.689 ppm06/12/2025 7:54 AM EDTHealthTrackRx at LabPortSTREPTOCOCCUS PYOGENES (GROUP A STREP)Not Hrhbxdvn52.961 - 24.689 ppm06/12/2025 7:54 AM EDT [facility] LabPortTRICHOMONAS MAIQYSDRG050.000 - 31.995 ppm06/12/2025 7:54 AM EDTHealthTrackRx at LabPortTRICHOMONAS VAGINALISNot Rpzqpegw67.000 - 31.995 ppm06/12/2025 7:54 AM EDTHealthTrackRx at LabPortSTAPHYLOCOCCUS EPIDERMIDIS, HAEMOLYTICUS, CFFMCKDVWSK787.961 - 24.689 ppm06/12/2025 7:54 AM EDTHealthTrackRx at LabPortSTAPHYLOCOCCUS EPIDERMIDIS, HAEMOLYTICUS, LUGDUNENSISNot Mnvhpwod64.961 - 24.689 ppm06/12/2025 7:54 AM EDTHealthTrackRx at LabPortSTAPHYLOCOCCUS MZLYOYIVXBMFQ898.961 - 24.689 ppm06/12/2025 7:54 AM EDTHealthTrackRx at LabPortSTAPHYLOCOCCUS SAPROPHYTICUSNot Adyiqwzh19.961 - 24.689 ppm06/12/2025 7:54 AM EDTHealthTrackRx at LabPortMYCOPLASMA GENITALIUM0 19.961 - 24.689 ppm06/12/2025 7:54 AM EDTHealthTrackRx at LabPortMYCOPLASMA GENITALIUMNot Hmocgytl70.961 - 24.689 ppm06/12/2025 7:54 AM EDTHealthTrackRx at LabPortMYCOPLASMA QMEWWRF66.425(A)19.961 - 24.689 ppm06/12/2025 7:54 AM EDT [facility] LabPortMYCOPLASMA HOMINISDetected(A)19.961 - 24.689 ppm 06/12/2025 7:54 AM EDTHealthTrackRx at LabPortUREAPLASMA YKKLPY383.961 - 24.689 ppm06/12/2025 7:54 AM EDTHealthTrackRx at LabPortUREAPLASMA PARVUMNot Otkbcgcd09.961 - 24.689 ppm06/12/2025 7:54 AM EDTHealthTrackRx at LabPort UREAPLASMA VIOIBWHIAKK21.383(A)19.961 - 24.689 ppm06/12/2025 7:54 AM EDT [facility] at LabPortUREAPLASMA UREALYTICUMDetected(A)19.961 - 24.689 ppm 06/12/2025 7:54 AM EDTHealthTrackRx at LabPortSpecimen (Source)Anatomical Location / LateralityCollection Method / VolumeCollection TimeReceived Time Kmhaevv8706/11/2025 12:37 PM EDT06/12/2025 1:38 AM EDT Narrative Authorizing ProviderResult TypeResult StatusBriana Goldman NPTITI BLOOD ORDERABLESFinal ResultPerforming OrganizationAddressCity/State/ZIP CodePhone Number [facility] [address] [place] [address] * Pap Smear (10/02/2024 12:00 AM EST)Specimen (Source)Anatomical Location / LateralityCollection Method / VolumeCollection TimeReceived TimeSwabCervical swab / Unknown Narrative Authorizing ProviderResult TypeResult StatusMora ALVAREZ CYTOLOGY ORDERABLES Final ResultPerforming OrganizationAddressCity/State/ZIP CodePhone Number EXTERNAL LAB from Last 3 Months or Most Recently Relevant to Health Maintenance Insurance Care Teams Team MemberRelationshipSpecialtyStart DateEnd Date Bladimir Jennings MD [address] [place] [address] PCP - GeneralFamily Medicine02/09/23
--- OUTSIDE RECORDS SUMMARY | 2025-08-15 13:37 | XMS_ITS | Clinical Summary ---
Author Organization [facility]AS[facility]abjit Address [address], [address] [place] [address] Care Team Providers Care Bridal Sales Consultant Name Role Phone Krystal Hines DO Primary Care Provider [phone] Allergies No known active allergies Medications MedicationSigDispense QuantityRefillsLast FilledStart DateEnd DateStatus propranolol (INDERAL) 10 MG tablet Take 1 tablet by mouth 4 times daily as needed (SVT) 90 tablet 5Active dilTIAZem (CARDIZEM CD) 180 MG extended release capsule Take 1 capsule by mouth daily 90 capsule 5Active cyclobenzaprine (FLEXERIL) 10 MG tablet Take 1 tablet by mouth 3 times daily as needed for Muscle spasms 90 tablet 5Active omeprazole (PRILOSEC) 40 MG delayed release capsule Take 1 capsule by mouth every morning (before breakfast) 90 capsule 5Active escitalopram (LEXAPRO) 10 MG tablet Take 1 tablet by mouth daily 90 tablet 5Active ondansetron (ZOFRAN-ODT) 4 MG disintegrating tablet Take 1 tablet by mouth 3 times daily as needed for Nausea or Vomiting 60 tablet 5Active mupirocin (BACTROBAN) 2 % ointment Apply topically in the morning and in the evening and before bedtime. Do all this for TEN days.5Active valACYclovir (VALTREX) 1 g tablet Take 1 tablet by mouth 2 times daily for 7 days 14 tablet 5Active itraconazole (SPORANOX) 100 MG capsule Take 2 capsules by mouth daily for 7 days 14 capsule Expired valACYclovir (VALTREX) 1 g tablet Take 1 tablet by mouth 2 times daily for 7 days 14 tablet Discontinued(REORDER) Active Problems ProblemNoted DateDiagnosed DateParoxysmal supraventricular tfruahmtppr68/09/2022 Assessment & Plan (11/01/2024 10:45 AM EST): Chronic, not at goal (unstable), changes made today: Will add Cardizem CD 180 mg daily for SVT and hypertension. Also have given her Inderal 10 mg every 6 hours as needed for episodes that do not resolve with vagal maneuvers., medication adherence emphasized, and lifestyle modifications recommended Will refer to EP for SVT ablation evaluation Right carpal tunnel imiosekp59/09/2022Morbid obesity due to excess calories 10/09/2021 Assessment & Plan (11/01/2024 10:45 AM EST): Chronic, worsening (exacerbation), awaiting GLP-1 agonist, medication adherence emphasized, and lifestyle modifications recommended Encounters DateTypeDepartmentCare SzyhVvsrtejottc17/29/2025 1:52 PM EDT - 08/01/2025 11:59 PM EDTHospital Encounter [facility] [address] [place] [address] Discharge Disposition: Home or Self Care08/01/2025 12:40 PM EDTOffice Visit [facility] [address] [place] [address] Krystal Hines DO Facial rash (Primary Dx); Stress incontinence; Female perineal pressure; RLQ abdominal pain; Acute URI1 12:24 PM EDT - 07/18/2025 11:59 PM EDTHospital Encounter [facility] Ultrasound [address], [place] [id number] Examination for, follow-up; Cyst of right ovary Discharge Disposition: Home or Self Care07/10/2025Transcribe Orders [facility] [address] [place] [id number] Briana Goldman, CYNTHIA - RESEARCH CHIEF ENGINEER Examination for, follow-up (Primary Dx); Cyst of right ovary06/11/2025Orders Only [address] [phone] Shahriar Rodriguez MD 06/08/2025Orders Only [address] [phone] Shahriar Rodriguez MD 06/08/2025bstract [address] [phone] Krystal Hines DO 06/07/2025Orders Only [address] [phone] ProviderShahriar MD from Last 3 Months Immunizations ImmunizationAdministration DatesNext DueInfluenza A (I1W4-62) Vaccine PF IM 08/06/2009TDaP, ADACEL (age 10y-64y), BOOSTRIX (age 10y+), IM, 0.5mL10/09/2012 Family History Medical HistoryRelationNameCommentsHeart DiseaseBrotherLeslie PopeHeart Disease FatherLarry BaileyHypertrophic cardiomyopathyFatherLarry BaileyHeart Disease SisterLarry Malathi JRRelationNameStatusCommentsBrotherLeslie PopeAliveFather Artem BaileySisterLarry Malathi JRAlive Social History Tobacco UseTypesPacks/DayYears UsedDateSmoking Tobacco: NeverSmokeless Tobacco: Never Tobacco Cessation:Counseling Given: Not Answered Alcohol UseStandard Drinks/WeekCommentsNo0 (1 standard drink = 0.6 oz pure alcohol)[facility] UtilitiesAnswerDate RecordedIn the past 12 months has the [employer], gas, oil, or water [employer] threatened to shut off services in your [...] heating?Not hard at all 01/26/2023HQ-2AnswerDate RecordedPHQ-9 Total Brilv550Hunger Vital Sign AnswerDate RecordedWithin the past 12 [...] steady place to sleep or slept in [facility] (including now)?No01/26/2023Housing Stability Vital SignAnswerDate RecordedIn the last 12 months, was there a time when you were not able to pay the mortgage or rent on time?No11/01/2024In the past 12 months, how many times have you moved where you were living?t any time in the past 12 months, were you homeless or living in a snf (including now)?No11/01/2024Food InsecurityAnswerDate RecordedWithin the past 12 months, you worried that your food would run out before you got the money to buymore.Within the past 12 months, the food you bought just didn't last and you didn't have money to get more.1 01/29/2025CommentsNoSex and Gender InformationValueDate RecordedSex Assigned at IxandDmqbad48/27/2025 7:05 AM EDTLegal CozZrdrsi72/07/2018 11:04 PM EDTGender IdentityNot on fileSexual OrientationNot on file Last Filed Vital Signs Vital SignReadingTime TakenCommentsBlood Kaobdldx105/801 12:42 PM EDT Gbhff605408/01/2025 12:42 PM BBMBxiqutcahck42.6 ??C (97.8 ??F)09/09/2024 11:00 PM ESTRespiratory Cdzz312909/09/2024 11:32 PM ESTOxygen Ugkwvznint02%08/01/2025 12:42 PM EDTInhaled Oxygen Concentration--Rejlmi746.6 kg (310 lb)08/01/2025 12:42 PM GHDYtbbdw799.6 cm (5' 4.02 )08/01/2025 12:42 PM EDTBody Mass Index53.18 08/01/2025 12:42 PM EDT Plan of Treatment DateTypeDepartmentCare Team (Latest Contact Info)Qwwqnkjbvmn55/25/2025 9:00 AM ESTOffice Visit [facility] Cl[facility] Coordinator [address] [place] [phone] Robbie De Santiago DO [address] [place] [address] 6 month f/u111/06/2024 7:40 AM ESTOffice Visit [facility] [address] [place] [phone] Krystal Hines DO [address] [place] [address] 1 mos - recheck rash10/17/2025 12:40 PM ESTOffice Visit [facility] [address] [place] [address] Krystal Hines DO [address] [place] [address] 6 mos - AnxietyHealth MaintenanceDue DateLast DoneCommentsVaricella vaccine (1 of 2 - 13+ 2-dose series)2000Hepatitis B vaccine (1 of 3 - 19+ 3-dose series)2006Pap smear2008Cervical cancer ganzzv2005/13/2017HPV (without or with Pap)2017DTaP/Tdap/Td vaccine (2 - Td or Tdap) Flu vaccine (#1)/12/2008COVID-19 Vaccine (2 - season) /epression Acfzjn78601/, 11/01/2024Diabetes marrhvAziwinvqaqel84/29/2025Hepatitis C ayxljjExtutwihf94/29/2025HIV screen Hpuzkcftx32/29/2025HPV vaccine (No Doses Required)CompletedHepatitis A vaccine Aged OutNo longer eligible based on patient's age to complete this topicHib vaccineAged OutNo longer eligible based on patient's age to complete this topic Meningococcal (ACWY) vaccineAged OutNo longer eligible based on patient's age to complete this topicMeningococcal B vaccineAged OutNo longer eligible based on patient's age to complete this topicPneumococcal 0-49 years VaccineAged OutNo longer eligible based on patient's age to complete this topicPolio vaccineAged OutNo longer eligible based on patient's age to complete this topic Procedures Procedure NamePriorityDate/TimeAssociated FffuuaoihJufvklteROMRvuinky46/29/2025 2:06 PM EDT T. PALLIDUM LTFgumphv33/29/2025 2:06 PM EDT QUDDEtbvkhs24/29/2025 2:06 PM EDT PROTIME-VFBKsgddov42/29/2025 2:06 PM EDT HIV ICFXMIZfnbmrx66/29/2025 2:06 PM EDT HEPATITIS B SURFACE BBUHWNBFygyeps95/29/2025 2:06 PM EDT T4, SJMZNodqrhb60/29/2025 2:06 PM EDT CBC WITH AUTO NYUHSWVBEGPZFnkbeyx91/29/2025 2:06 PM EDT HCG, QUANTITATIVE, LCRSJBEYHKkfdrhf05/29/2025 2:06 PM EDT US PELVIS COMPLETE NON-OB TRANSABDOMINAL AND ZOQAXFHRVIBZAsheryy98/13/2025 1:05 PM EDT Examination for, follow-up Cyst of right ovary CT ABDOMEN PELVIS W KBQCYGCQJxtagkd97/04/2025 3:35 PM EDTLAB RESULTRoutine 06/07/2025 9:52 AM EDTLAB HRWGETIymtjdh31/04/2025 7:32 AM EDTLAB RESULTRoutine 06/07/2025 7:13 AM EDTUS PELVIS COMPLETE NON-OB TRANSABDOMINAL AND TRANSVAGINAL Zgpsamn5506/07/2025 5:53 AM EDTLAB IGPGPDFgiikoi44/04/2025 5:51 AM EDTHEPATITIS PANEL, QDRQQRuuujfo82/29/2025 10:54 AM EST Paroxysmal supraventricular tachycardia Elevated liver enzymes HEMOGLOBIN Z0UDmqmbsy40/29/2025 10:54 AM EST from Last 3 Months or Most Recently Relevant to Health Maintenance Results * T. pallidum Ab (08/01/2025 2:06 PM EDT)ComponentValueRef RangeTest Method Analysis TimePerformed AtPathologist SignatureT. pallidum, IgGNONREACTIVE AETZQZXQDCT91/29/2025 2:06 PM EDTMERCY LABORATORIESComment: ? T. pallidum antibodies are not detected. There is no serological evidence of infection with T. pallidum (early primary syphilis cannot be excluded). ??Retest in 2-4 weeks if syphilis is clinically suspect. ? Specimen (Source)Anatomical Location / LateralityCollection Method / Volume Collection TimeReceived Time08/01/2025 2:06 PM EDT1 2:08 PM EDT Narrative Authorizing ProviderResult TypeResult StatusCorey oRn Davis MDIMMUNOLOGY ORDERABLESFinal ResultPerforming OrganizationAddressCity/State/ZIP CodePhone Number [facility] [address] [place] [address], [facility] [phone] [facility] [employer] [address] [place], [place] [address] [phone] * (ABNORMAL) CBC with Auto Differential (08/01/2025 2:06 PM EDT)ComponentValue Ref RangeTest MethodAnalysis TimePerformed AtPathologist XygguekvkWXV66.6(H) 3.5 - 11.0 k/uL08/01/2025 2:06 PM EthertronicsTrulyARD LABRBC4.904.00 - 5.20 m/uL08/01/2025 2:06 PM EDCountrywide Healthcare SuppliesARD WSIAhoxafvgvu09.012.0 - 16.0 g/dL08/01/2025 2:06 PM [facility] MLSOromthcizu89.936.0 - 46.0 %08/01/2025 2:06 PM [employer] LRRMWP98.3(L)80.0 - 100.0 fL 08/01/2025 2:06 PM [facility] SUILDU46.5(L)26.0 - 34.0 pg 08/01/2025 2:06 PM EDCountrywide Healthcare SuppliesARD YUALXHU43.731.0 - 37.0 g/dL 08/01/2025 2:06 PM [facility] JOQVVK16.812.1 - 15.2 %08/01/2025 2:06 PM [employer] MAVEcrihofgl835276 - 450 k/uL08/01/2025 2:06 PM [employer] LABMPV9.66.0 - 12.0 fL08/01/2025 2:06 PM EDTMERCY HEALTH KASI LABNeutrophils %5747 - 75 %08/01/2025 2:06 PM EDTMUNIVERSITY H[facility]ALS [facility] K[facility] LABLymphocytes %3115 - 40 %08/01/2025 2:06 PM EDREG[facility] CQuotient KASI LABMonocytes %74 - 8 %08/01/2025 2:06 PM [facility] Eosinophils %40 - 5 %08/01/2025 2:06 PM EDTOLED[facility] KASI LABBasophils % 10 - 2 %08/01/2025 2:06 PM EDTOLED[facility] KASI LABImmature Granulocytes %0 0 - 5 %08/01/2025 2:06 PM EDTOLED[facility] KASI LABNeutrophils Absolute6.75 2.5 - 7.0 k/uL08/01/2025 2:06 PM EDTOLED[facility] KASI LABLymphocytes Absolute3.541.00 - 4.80 k/uL08/01/2025 2:06 PM [facility]TOL[facility] Monocytes Absolute0.760.00 - 1.00 k/uL08/01/2025 2:06 PM [facility]TOL[facility] KASI LABEosinophils Absolute0.44(H)0.00 - 0.40 k/uL08/01/2025 2:06 PM EDT [facility] LABBasophils Absolute0.060.00 - 0.20 k/uL08/01/2025 2:06 PM EDTOLED[facility] KASI LABImmature Granulocytes Absolute0.020.00 - 0.30 k/uL08/01/2025 2:06 PM EDTOLED[facility] KASI LABSpecimen (Source)Anatomical Location / LateralityCollection Method / VolumeCollection TimeReceived Time 08/01/2025 2:06 PM EDT1 2:08 PM EDT Narrative Authorizing ProviderResult TypeResult StatusCorey Ron Davis MDHEMATOLOGY ORDERABLESFinal ResultPerforming OrganizationAddressCity/State/ZIP CodePhone Number [facility] [address] [place] [address], [facility] [phone] * HIV Screen (08/01/2025 2:06 PM EDT)ComponentValueRef RangeTest MethodAnalysis TimePerformed AtPathologist SignatureHIV Ag/XoRYAQVXZACBOKWEJOWAHNVT42/29/2025 2:06 PM EDTMERCY LABORATORIESComment: No laboratory evidence of HIV infection. ??If acute HIV infection is suspected, consider testing for HIV-1 RNA. Specimen (Source)Anatomical Location / LateralityCollection Method / Volume Collection TimeReceived Time08/01/2025 2:06 PM EDT1 2:08 PM EDT Narrative Authorizing ProviderResult TypeResult StatusCorey Ron Davis MDIMMUNOLOGY ORDERABLESFinal ResultPerforming OrganizationAddressCity/State/ZIP CodePhone Number [facility] [address] [place] [phone], [facility] [phone] [facility] [employer] [address] [place] [address] * Hepatitis B Surface Antigen (08/01/2025 2:06 PM EDT)ComponentValueRef Range Test MethodAnalysis TimePerformed AtPathologist SignatureHepatitis B Surface RiIWTGDYQNWJZRBZLFTJLMAE54/29/2025 2:06 PM EDTMERCY LABORATORIESSpecimen (Source)Anatomical Location / LateralityCollection Method / VolumeCollection TimeReceived Time08/01/2025 2:06 PM EDT1 2:08 PM EDT Narrative Authorizing ProviderResult TypeResult StatusCorey Ron Davis MDIMMUNOLOGY ORDERABLESFinal ResultPerforming OrganizationAddressty/State/ZIP CodePhone Number [facility] [address] [place] [address], [facility] [phone] [facility] [employer] [address] [place] [address] * APTT (08/01/2025 2:06 PM EDT)ComponentValueRef RangeTest MethodAnalysis Time Performed AtPathologist UozrpauqdNGQD17.723.9 - 33.8 sec08/01/2025 2:06 PM EDT [facility] K[facility] LABComment: ? IV Heparin Therapy Range: ?62.0-94.0 ? Specimen (Source)Anatomical Location / LateralityCollection Method / Volume Collection TimeReceived Time08/01/2025 2:06 PM EDT1 2:08 PM EDT Narrative Authorizing ProviderResult TypeResult StatusCorey Ron Davis MDHEMATOLOGY ORDERABLESFinal ResultPerforming OrganizationAddressty/State/ZIP CodePhone Number [facility] [address] [place] [address], [facility] [phone] * Protime-INR (08/01/2025 2:06 PM EDT)ComponentValueRef RangeTest MethodAnalysis TimePerformed AtPathologist ZoanavqmeCrrxrfd60.711.5 - 14.2 sec08/01/2025 2:06 PM EDTOLEDO HOSPITAL KASI LABINR1. 2:06 PM EDREGENCY HOS[facility]ITAL COMPANY CQuotient KASI LABComment: ? Therapeutic Range: Moderate Anticoagulant Intensity: INR = 2.0-3.0 High Anticoagulant Intensity: INR = 2.5-3.5 Specimen (Source)Anatomical Location / LateralityCollection Method / Volume Collection TimeReceived Time08/01/2025 2:06 PM EDT1 2:08 PM EDT Narrative Authorizing ProviderResult TypeResult StatusCorejavier Davis MDHEMATOLOGY ORDERABLESFinal ResultPerforming OrganizationAddressty/State/ZIP CodePhone Number [facility] [address] [place], [place] [address] [phone] * HCG, Quantitative, (08/01/2025 2:06 PM EDT)ComponentValueRef Range Test MethodAnalysis TimePerformed AtPathologist SignaturehCG Quant<0.2<5 mIU/mL08/01/2025 2:06 PM EDREGENCY HOS[facility]ITAL COMPANY CQuotient KASI LABComment: Non-preg premeno <=5 Postmeno <=8 Male <=3 If HCG results do not concur with clinical observations, additional testing to confirm results is recommended. Specimen (Source)Anatomical Location / LateralityCollection Method / Volume Collection TimeReceived Time08/01/2025 2:06 PM EDT1 2:08 PM EDT Narrative Authorizing ProviderResult TypeResult StatusCorey Ron Susan MDCHEMISTRY ORDERABLESFinal ResultPerforming OrganizationAddressty/State/ZIP CodePhone Number [facility] [address] [place] [phone] [phone] * TSH (08/01/2025 2:06 PM EDT)ComponentValueRef RangeTest MethodAnalysis Time Performed AtPathologist SignatureTSH1.760.27 - 4.20 uIU/mL08/01/2025 2:06 PM EDKET[facility] LABSpecimen (Source)Anatomical Location / Laterality Collection Method / VolumeCollection TimeReceived Time08/01/2025 2:06 PM EDT 08/01/2025 2:08 PM EDT Narrative Authorizing ProviderResult TypeResult StatusCorey Ron Davis MDCHEMISTRY ORDERABLESFinal ResultPerforming OrganizationAddressCity/State/ZIP CodePhone Number [facility] [address] [place], [place] [address] [phone] * T4, Free (08/01/2025 2:06 PM EDT)ComponentValueRef RangeTest MethodAnalysis TimePerformed AtPathologist SignatureT4 Free1.00.92 - 1.68 ng/dL08/01/2025 2:06 PM EDTMERCY LABORATORIESSpecimen (Source)Anatomical Location / Laterality Collection Method / VolumeCollection TimeReceived Time08/01/2025 2:06 PM EDT 08/01/2025 2:08 PM EDT Narrative Authorizing ProviderResult TypeResult StatusCorey Ron Davis MDCHEMISTRY ORDERABLESFinal ResultPerforming OrganizationAddressty/State/ZIP CodePhone Number [facility] [address] [place] [address], [facility] [phone] [place] [id number], [facility] [phone] * US PELVIS COMPLETE NON-OB TRANSABDOMINAL AND TRANSVAGINAL (07/16/2025 1:05 PM EDT) Only the most recent of2 resultswithin the time period is included. Anatomical RegionLateralityModalityPelvisUltrasoundSpecimen (Source)Anatomical Location / LateralityCollection Method / VolumeCollection TimeReceived Time 07/16/2025 1:05 PM EDT Impressions 07/17/2025 11:04 AM EDT Physiologic small left ovarian cyst. Narrative 07/17/2025 11:04 AM EDT EXAM: US PELVIS COMPLETE NON-OB TRANSABDOMINAL AND TRANSVAGINAL HISTORY: Examination for, follow-up COMPARISON: None. FINDINGS: Uterus: 10.3 x 4.9 x 6.4 cm Right ovary: 2.7 x 2.5 x 1.5 cm. Left ovary: 3.9 x 3.1 x 2.7 cm. Endometrial thickness 6.6 mm. 3.4 cm benign left ovarian cyst with thin wall, no internal septations or nodularity. Procedure Note Gabriel Fatima Jr., MD - 07/17/2025 EXAM: US PELVIS COMPLETE NON-OB TRANSABDOMINAL AND TRANSVAGINAL HISTORY: Examination for, follow-up COMPARISON: None. FINDINGS: Uterus: 10.3 x 4.9 x 6.4 cm Right ovary: 2.7 x 2.5 x 1.5 cm. Left ovary: 3.9 x 3.1 x 2.7 cm. Endometrial thickness 6.6 mm. 3.4 cm benign left ovarian cyst with thin wall, no internal septations or nodularity. IMPRESSION: Physiologic small left ovarian cyst. Authorizing ProviderResult TypeResult StatusBriana Goldman CHEESE PACKER - [facility] US ORDERABLESFinal Result * CT Abdomen Pelvis W Contrast (06/07/2025 3:35 PM EDT)Anatomical Region LateralityModalityComputed Tomography Narrative Authorizing ProviderResult TypeResult StatusHistorical Provider MDG CT ORDERABLESFinal Result * LAB RESULT (06/07/2025 9:52 AM EDT) Only the most recent of4 resultswithin the time period is included. Narrative Authorizing ProviderResult TypeResult StatusHistorical Provider MDCHEMISTRY ORDERABLESFinal Result * Hepatitis Panel, Acute (11/01/2024 10:54 AM EST)ComponentValueRef RangeTest MethodAnalysis TimePerformed AtPathologist SignatureHepatitis B Surface Ag GGUHTNNZNRMOSLNGFWMCBI20/29/2025 10:54 AM ESTMERCY LABORATORIESHepatitis C Ab WGFGJFZHLQOXQIEGNWOPKH45/29/2025 10:54 AM ESTMERCY LABORATORIESComment: ? The hepatitis C procedure used in our laboratory is a Chemiluminescent test specific for three recombinant HCV antigens. ??A negative anti-HCV result indicates that the antibodies to hepatitis C virus are not present at this time. Individuals with reactive anti-HCV should be considered infected and infectious until proven otherwise. ??Confirmation of all equivocal or reactive results is recommended by ordering HCV RNA by PCR. Hep B Core Ab, GqGBSYKMBHDZTMBSWLZVBYMYR74/29/2025 10:54 AM ESTMERCY LABORATORIESHep A HeEBOEXUDEDWVMYOEILUKFOSQ14/29/2025 10:54 AM ESTMERCY LABORATORIESSpecimen (Source)Anatomical Location / LateralityCollection Method / VolumeCollection TimeReceived TimeBloodBLOOD SPECIMEN / Onjepna6011/01/2024 10:54 AM EST11/01/2024 10:55 AM EST Narrative Authorizing ProviderResult TypeResult StatusMicrobbie Ambernabe DOIMMUNOLOGY ORDERABLESFinal ResultPerforming OrganizationAddressCity/State/ZIP CodePhone Number [facility] [address] [place] [address], [facility] [phone] [place] [address], [facility] [phone] * Hemoglobin A1C (11/01/2024 10:54 AM EST)ComponentValueRef RangeTest Method Analysis TimePerformed AtPathologist SignatureHemoglobin A1C5.34.0 - 6.0 % 11/01/2024 10:54 AM ESTMERCY LABORATORIESEstimated Avg Zvrfhhz145pu/dL 11/01/2024 10:54 AM ESTMERSlanissue LABORATORIESComment: The ADA and AACC recommend providing the estimated average glucose result to permit better patient understanding of their HBA1c result. Specimen (Source)Anatomical Location / LateralityCollection Method / Volume Collection TimeReceived Time11/01/2024 10:54 AM EST11/01/2024 10:55 AM EST Narrative Authorizing ProviderResult TypeResult StatusMora Dunham MDCHEMISTRY ORDERABLES Final ResultPerforming OrganizationAddressCity/State/ZIP CodePhone Number [facility] [address] [place] [address], [facility] [phone] [facility] [employer] [facility] [place] [address], [facility] [phone] from Last 3 Months or Most Recently Relevant to Health Maintenance Insurance Care Teams Team MemberRelationshipSpecialtyStart DateEnd Date Krystal Hines DO [address] [address] PCP - GeneralFamily Medicine05/12/22
--- OUTSIDE RECORDS SUMMARY | 2025-08-15 13:42 | XMS_ITS | CCD ---
Author Organization [facility] Care Team Providers Care Beam Builder Helper Name Role Phone Bladimir Jennings Primary Care Provider Krystal Garcia DO Primary Care Provider Krystal Garcia DO Primary Care Provider Bladimir Jennings MD Primary Care Provider Unavailable Primary Care Provider Unavailabl e Krystal Garcia DO Primary Care Provider NICK HUNT Attending Unavailable MAYURI TAYLOR Referring Unavai lable MAYURI TAYLOR Admitting Unavai labMARILYN HarrisSSICA Los Primary Care Unavailable GREGORIA HERBERT Attending Unavailable MARILYN GARCIASSICA Hayde Primary Care Physician Amira Edwards Attending Unavailable Fidelia Edwardsricia Prabha Admitting Unavailable Cameron Brar Attending Unavailable Amira Edwards Attending Unavailable Fidelia Edwardsricia Prabha Admitting Unavailable Fidelia Edwardsricvioletta Armando Attending Unavailable Cameron Brar Attending Unavailable MARILYN GARCIASSICA Hayde Primary Care Unavailable MAYURI TAYLOR Referring Unavailable MARILYN GARCIASSICA Hayde Primary Care Unavailable BEBE GOLDMAN Referring Unavailable JOSE KRYSTAL L Primary Care Unavailable DOMENIC GALLAGHER Attending Unavailable MARILYN GARCIASSICA Hayde Primary Care Unavailable CARLOS EDUARDO DAVIS Referring Unavailable BEBE GOLDMAN Attending Unavailable CARLOS EDUARDO DAVIS Attending Unavailable CARLOS EDUARDO DAVIS Attending Unavailable MORA WELCH Attending Unavailable Carlos Eduardo Davis DO Attending Provider Carlos Eduardo Davis Attending Unavailable Carlos Eduardo Davis Admitting Unavailable Medications Current Medications MedicationDrug Class(es)DatesSig (Normalized)Sig (Original)cephalexin 500 mg oral capsule (1 source)Cephalosporin AntibacterialStart: 06-07-2025 End: 44-96-2592ipzd 1 capsule by mouth twice dailyKeflex 500 mg Cap 500 mg = 1 cap(s), Oral, BID, X 5 day(s), # 10 cap(s), Refills(s) 0, Pharmacy: [facility], 162, cm, 06/07/25 12:36:00 EDT, Height/Length Dosing, 143, kg, 06/07/25 12:36:00 EDT, Weight Dosing Start Date: 06/07/25 Stop Date: 06/12/25 Status: Ordered Quantity: 10.0 Unit: cap(s) Repeat number: 1 Indications: Frequency of micturition; Unspecified urinary incontinence; Chills (without fever); Unspecified adverse effect of drug or medicament, initial encounter; Pelvic andperineal pain;cyclobenzaprine hydrochloride 10 mg oral tablet (4 sources)Muscle RelaxantStart: 60-34-0710sksr 1 tablet by mouth three times daily as needed for muscle spasmscyclobenzaprine (FLEXERIL) 10 MG tablet Take 1 tablet by mouth 3 times daily as needed for Muscle spasms 90 tablet 1 04/16/2025 ActiveStart: 38-30-2402ojso 1 tablet by mouth three times daily as needed for muscle spasmscyclobenzaprine (FLEXERIL) 10 MG tablet Take 1 tablet by mouth 3 times daily as needed for Muscle spasms 30 tablet 1 01/26/2023 Activetake 1 tablet by mouth three times daily as needed for muscle spasmscyclobenzaprine (FLEXERIL) 10 MG tablet Take 10 mg by mouth 3 times daily as needed for Muscle spasms 0 Activedigoxin 0.25 mg oral tablet (1 source)Cardiac GlycosideStart: 90-83-6478ongd 1 tablet by mouth once daily24 hr dilTIAZem hydrochloride 180 mg extended release oral capsule (6 sources)Calcium Channel BlockerStart: 85-61-3579mxzt 1 capsule by mouth once dailydilTIAZem (CARDIZEM CD) 180 MG extended release capsule Take 1 capsule by mouth daily 90 capsule 3 04/16/2025 ActiveStart: 89-46-7485xvbr 1 capsule by mouth once dailydilTIAZem (CARDIZEM CD) 180 MG extended release capsule Take 1 capsule by mouth daily 30 capsule 11011/01/2024 ActiveStart: 17-92-0438nnhm 1 tablet by mouth once daily as neededdilTIAZem (CARDIZEM) 30 MG tablet Take 1 tablet by mouth daily as needed (for SVT epidoses) 30 tablet 3 02/25/2022 Active DilTIAZem (Eqv-Cardizem CD) 180 mg/24 hours oral capsule, extended release (1 source)Start: 11-21-2227kwvt 1 capsule by mouth every hourDilTIAZem (Eqv- Cardizem CD) 180 mg/24 hours oral capsule, extended release Refills(s) 0 Start Date:06/07/25 Status: Ordered Repeat number: 1escitalopram 10 mg oral tablet (5 sources)Serotonin Reuptake InhibitorStart: 19-36-8203pyud 1 tablet by mouth once dailyescitalopram (LEXAPRO) 10 MG tablet Take 1 tablet by mouth daily 90 tablet 1 04/16/2025 ActiveStart: 67-92-8343scom 1 tablet by mouth once daily escitalopram (LEXAPRO) 5 MG tablet Take 1 tablet by mouth daily 30 tablet 1 11/01/2024 Activeitraconazole 100 mg oral capsule (1 source)Azole AntifungalStart: 08-01-2025 End: 30-79-5549nwko 2 capsules by mouth once dailyitraconazole (SPORANOX) 100 MG capsule Take 2 capsules by mouth daily for 7 days 14 capsule 08/01/2025 08/08/2025 Active3 ml liraglutide 6 mg/ml pen injector (1 source)GLP-1 Receptor AgonistStart: 10-30-1142uhxpdcrntch-weight management 18 MG/3ML SOPN 0.6 mg subcu daily. Inc by 0.6 mg weekly til reaching max tolerated dose of 3 mg weekly. 15 mL 2 01/27/2023 Active1 ml medroxyPROGESTERone acetate 150 mg/ml injection (3 sources)ProgestinStart: 08-23-2023 End: 12-44-8722bdygloiSKVHIDLHScvg (Depo-Provera) 150 MG/ML injection Indications: control counseling Inject1 mL (150 mg) into the shoulder, thigh, or buttocks every 3 (three) months. 1 mL 3 08/23/2023 10/02/2024 Discontinued (Therapy completed)mupirocin 0.02 mg/mg topical ointment (3 sources)RNA Synthetase Inhibitor AntibacterialStart: 37-63-0003lzfkpvbek (BACTROBAN) 2 % ointment Apply topically in the morning and in the evening and before bedtime. Do all this for TEN days. 07/17/2025 ActiveStart: 07-17-2025 End: 87-42-6117tvgjhuvul (Bactroban) 2 % ointment Indications: Rash Apply topically in the morning and in the evening and before bedtime. Do all this for 10 days. 1 g 07/17/2025 07/27/2025 Activenaproxen 500 mg oral tablet (1 source)Nonsteroidal Anti-inflammatory Drugtake 1 tablet by mouth in the morningnaproxen (NAPROSYN) 500 MG tablet Take 500 mg by mouth in the morning and 500 mg in the evening. Take with meals. 0 Activenitrofurantoin, macrocrystals 25 mg / nitrofurantoin, monohydrate 75 mg oral capsule (1 source)Nitrofuran AntibacterialStart: 06-01-2022 End: 01-03-6829whhj 1 capsule by mouth twice dailynitrofurantoin, macrocrystal- monohydrate, (MACROBID) 100 MG capsule Indications: Acute cystitis without hematuria Take 1 capsule by mouth 2 times daily for 5 days 10 capsule 0 06/01/2022 06/06/2022 ActiveNo Name (No Known Home Meds) (1 source)Start: 73-97-9379Se Name (No Known Home Meds) Active February 14, 2021 11:00pmomeprazole 40 mg delayed release oral capsule (8 sources)Proton Pump InhibitorStart: 43-91-4062usoh 1 capsule by mouth once daily before breakfastomeprazole (PRILOSEC) 40 MG delayed release capsule Take 1 capsule by mouth every morning (before breakfast) 90 capsule 1 04/16/2025 Active Start: 09-28-2023 End: 78-71-9466wpaw 1 capsule by mouth in the morningomeprazole (PriLOSEC) [address] capsule Indications: Gastroesophageal reflux disease, unspecified whether esophagitis present Take 1 capsule (20 mg) by mouth in the morning. Do not crush or chew.. 90 capsule 3 09/28/2023 10/02/2024 Discontinued (Therapy completed) Start: 11-64-6096pdyf 1 capsule by mouth once daily before breakfastomeprazole (PRILOSEC) 40 MG delayed release capsule Take 1 capsule by mouth every morning (before breakfast) 90 capsule 1 05/12/2022 Activeondansetron 4 mg oral tablet (3 sources)Serotonin-3 Receptor AntagonistStart: 06-07-2025 End: 10-44-7103tbdi 1 tablet by mouth every eight hoursZofran 4 mg Tab 4 mg = 1 tab(s), Oral, q8hr, X 7 day(s), # 21 tab(s), Refills(s) 0, Pharmacy: [facility], 162, cm, 06/07/25 13:30:00 EDT, Height/Length Dosing, 144.5, kg, 06/07/25 13:30:00 EDT, Weight Dosing Start Date: 06/07/25 Stop Date: 06/14/25 Status: Ordered Quantity: 21.0 Unit: tab(s) Repeat number: 1Start: 04-16-2025 take 1 tablet by mouth three times daily as needed for nauseaondansetron (ZOFRAN-ODT) 4 MG disintegrating tablet Take 1 tablet by mouth 3 times daily as needed for Nausea or Vomiting 60 tablet 04/16/2025 Activephentermine hydrochloride 37.5 mg oral tablet (1 source)Sympathomimetic Amine AnorecticStart: 05-12-2022 End: 28-27-8458etho 1 tablet by mouth once daily before breakfastphentermine (ADIPEX-P) 37.5 MG tablet Indications: Morbid obesity due to excess calories (HCC) Take1 tablet by mouth every morning (before breakfast) for 30 days. 30 tablet 0 05/12/2022 06/11/2022 Activepropranolol hydrochloride 10 mg oral tablet (6 sources)beta-Adrenergic BlockerStart: 77-08-5418xcgd 1 tablet by mouth four times daily as neededpropranolol (INDERAL) 10 MG tablet Take 1 tablet by mouth 4 times daily as needed (SVT) 90 tablet ActiveStart: 41-70-8694zjmj 1 tablet by mouth twice dailypropranolol (INDERAL) 10 MG tablet Take 1 tablet by mouth 2 times daily 180 tablet 3 02/25/2022 Gmmmli61 hr scopolamine 0.0139 mg/hr transdermal system (1 source)AnticholinergicStart: 64-78-1745uxzturrlhkg (TRANSDERM-SCOP) transdermal patch Place 1 patch onto the skin every 72 hours 3 patch 03/10/2024 Activesemaglutide (OZEMPIC SUBQ) (1 source)semaglutide (OZEMPIC SUBQ) Inject under the skin . Active spironolactone 25 mg oral tablet (2 sources)Aldosterone AntagonistStart: 67-04-5259jgye 1 tablet by mouth once dailyspironolactone (ALDACTONE) 25 MG tablet Take 1 tablet by mouth daily 30 tablet 11 02/25/2022 Activetobramycin 0.003 mg/mg ophthalmic ointment (3 sources)Aminoglycoside AntibacterialStart: 06-11-2025 End: 22-71-0661zsntfeoptt (Tobrex) 0.3 % ophthalmic ointment Indications: Encounter for follow-up , Cyst of right ovary , Irritation of both eyes Apply 1 g (0.5 inches) to both eyes in the morning and 1 g (0.5 inches) in the evening and 1 g (0.5 inches) before bedtime. Do all this for 14 days. 42 g 06/11/2025 06/25/2025 Active Completed/Discontinued Medications MedicationDrug Class(es)DatesSig (Normalized)Sig (Original)azithromycin 500 mg oral tablet (4 sources)Macrolide AntimicrobialStart: 06-13-2025 End: 76-43-1366nidn 1 tablet by mouth once dailyazithromycin (Zithromax) 500 MG tablet Indications: Bacterial infection due to mycoplasma Day 1: Take 2 tablets PO onetime dose; Day 2,3,4: Take 1 tablet daily 5 tablet 06/13/2025 08/09/2025 Discontinued (Therapy completed)fluconazole 150 mg oral tablet (1 source)Azole AntifungalStart: 31-28-6541Foiqcuoa 150 mg Tab 150 mg = 1 tab(s), Oral, Once, Take one tablet at first sign of symptoms, repeat in 3 days if needed if symptoms persist, # 2 tab(s), Refills(s) 0, Pharmacy: [facility], 162, cm, 06/07/25 12:36:00 EDT, Height/Length Dosing, 143, kg, 06/07/25 12:36:00 EDT, Weight Dosing Start Date: 06/07/25 Status: Ordered Quantity: 2.0 Unit: tab(s) Repeat number: 1 Indications: Frequency of micturition; Unspecified urinary incontinence; Chills (without fever); Unspecified adverse effect of drug or medicament, initial encounter; Pelvic and perineal pain; Problems Active Problems Problem ClassificationProblemDateDocumented DateEpisodic/ChronicAbdominal pain (1 source)Pelvic and perineal pain; Translations: [Pelvic and perineal pain] Onset: 01-01-6993KynnnhasWwukgvwkt infection; unspecified site (2 sources)Mycoplasma infection; Translations: [Mycoplasma infection, unspecified site]73-02-6571FogazvihQkaexdi dysrhythmias (14 sources)Paroxysmal supraventricular tachycardia; Translations: [Supraventricular tachycardia]Onset: 648636-08-4309JufhazvAxwtfdy on above:Problem List clean-up per request of Phys. EHR CmteComplications of surgical procedures or medical care (1 source)Complication of procedure; Translations: [Unspecified adverse effect of drug or medicament, initialencounter]Onset: 94-41-7097TkfnktqrMxrgerfndgmoo and procreative management (1 source)Sterilization requested; Translations: [Encounter for sterilization] 52-72-6034BifsiwjiTqoydxbwtgrqf symptoms and ill-defined conditions (1 source)Unspecified urinary incontinence; Translations: [Unspecified urinary incontinence]Onset: 99-14-7612ImysqehVihcnlamrbqar symptoms and ill-defined conditions (1 source)Increased frequency of urination; Translations: [Frequency of micturition]Onset: 26-74-5649MfbmiqjtGculvwrmdxmjf and screening for infectious disease (10 sources)Patient encounter status; Translations: [Encounter for screening for infections with a predominantly sexual mode of transmission]Onset: 08-01-2025 EpisodicMalaise and fatigue (1 source)Fatigue; Translations: [Other fatigue]EpisodicMenstrual disorders (7 sources)Menorrhagia; Translations: [Excessive and frequent menstruation with regular cycle]Onset: 341526-40-4749EikbhlrLagrq aftercare (1 source)Encounter for follow-up examination after completed treatment for conditions other than malignant neoplasm; Translations: [Encounter for follow-up examination after completed treatment for conditionsother than malignant neoplasm]Onset: 83-03-2969CfbvzovwOdgyg eye disorders (2 sources)Inflammatory disorder of the eye; Translations: [Other specified disorders of eye and adnexa]06-19-1006XajwqielAgask female genital disorders (3 sources)Abnormal uterine bleeding; Translations: [Abnormal uterine and vaginal bleeding, unspecified]29-37-2174WvjbgoiAjist female genital disorders (1 source)Vaginal odor; Translations: [Other specified noninflammatory disorders of vagina]EpisodicOther female genital disorders (1 source)Pain in female pelvis; Translations: [Pelvic pain in female]08-09-2025 EpisodicOther liver diseases (2 sources)Steatosis of liver; Translations: [Fatty (change of) liver, not elsewhere classified]94-57-7691HmneqwdQewhs liver diseases (1 source)Elevated liver enzymes level; Translations: [Abnormal levels of other serum enzymes]05-43-4317ZbxeubstYuvye lower respiratory disease (1 source)Snoring; Translations: [Snoring]EpisodicOther nervous system disorders (5 sources)Carpal tunnel syndrome of right wrist; Translations: [Carpal tunnel syndrome, right upper limb]Onset: 589040-97-1021BqagmtjXlcgj nutritional; endocrine; and metabolic disorders (2 sources)Obesity; Translations: [Obesity, unspecified]Onset: 10-09-2021 89-03-9671BwwzxolQkgic nutritional; endocrine; and metabolic disorders (5 sources)Morbid obesity; Translations: [Morbid (severe) obesity due to excess calories]Onset: 269137-24-1178NbzaqggFpqop nutritional; endocrine; and metabolic disorders (2 sources)Weight increased; Translations: [Abnormal weight gain]10-02-2024 EpisodicOther screening for suspected conditions (not mental disorders or infectious disease) (1 source)Other specified abnormal findings of blood chemistry; Translations: [Elevated troponin level]09-58-2493RpkdmaywMsljmve on above:Problem List clean- up per request of Phys. EHR CmteOther skin disorders (2 sources)Eruption; Translations: [Rash and other nonspecific skin eruption] 90-65-6526TxbwfnfcDlbvoht cyst (4 sources)Cyst of right ovary; Translations: [Unspecified ovarian cyst, right side]Onset: 072055-82-6393PzdeiqaiRqnktvvg codes; unclassified (1 source)Sleep apnea; Translations: [Sleep apnea, unspecified]ChronicResidual codes; unclassified (1 source)Chill; Translations: [Chills (without fever)]Onset: 30-40-5991Bgylwqlo Unclassified (2 sources)Supraventricular tachycardia, unspecified; Translations: [Supraventricular tachycardia, unspecified]Onset: 05-12-2022 Past or Other Problems Problem ClassificationProblemDateDocumented DateEpisodic/ChronicOther liver diseases (1 source)Abnormal levels of other serum enzymes; Translations: [Abnormal levels of other serum enzymes]Onset: 43-30-7229BwdjbvhaAqjtndwlplnc (1 source)Supraventricular tachycardia, unspecified; Translations: [Supraventricular tachycardia, unspecified]Onset: 22-37-1590Qifippjlqsjv (2 sources)PregnancyOnset: 01-05-2008 Resolved: Results Test NameValueInterpretationReference RangeFacilityEndometrial biopsyon 12-53-4123Drqzpgl Angelone 08/13/2025 1:51 PM Endometrial biopsy Date/Time: 08/09/2025 [...] pathology Patient tolerance: tolerated well, no immediate complicationsNOSSM Health Care HealthcareHCG ( test) Ql (U)Ordered By: Tamanna Faye on 08-09-2025 Interpretation and review of laboratory resultsNormalNOLee's Summit HospitalPreg Test, UrNegativeNegativeNOFormerly Franciscan HealthcareLon 08-09-2025L Specimen: [id number] Received: 08/10/25 Status: SARAI Lisbeth Num: [id number] Spec Type: Surgical Subm Dr: Carlos Eduardo Davis Tissues: A Endometrium - Biopsy (ENDOMETRIUM) Procedures: HE/2, Gross/Micro L4 Age/ Patient Sex Location Account Attending Physician Myra Valencia/F LABELL [id number] Carlos Eduardo Davis SPEC NUM: [id number] RECD: 08/10/25 STATUS: SARAI JENSEN NUM: [id number] ARNALDO: 08/09/[address] [facility] [address]: Carlos Eduardo Davis ENTERED: 08/10/25 [facility] DR: Law,Lab SPEC TYPE: Surgical DEPT: GERALD NGUYEN ENTERED BY: [id number] RECV BY: [id number] ORDERED: HE/2, Gross/Micro L4 ORDERED: HE/2, Gross/Micro L4 Pathological Diagnosis Endometrium, biopsy: - Late secretory phase endometrium. - No evidence of hyperplasia or malignancy identified. Clinical Information Abnormal uterine bleeding, menorrhagia, pelvic pain Gross Description Received in formalin labeled with the patient's date of , and CHAU Valencia BX is a pale gutierrez mucoid material, admixed with gutierrez-stover to pink, delicate tissue bits, 1.3 x 0.6 x 0.2 cm in aggregate. The specimen is filtered and entirely submitted in a single cassette. (1, ns, [id number]) J Microscopic Description Microscopic examination is performed. CPT Codes 21288 Specimen: [id number] Received: 08/10/25 Status: SARAI Lisbeth Num: [id number] Spec Type: Surgical Subm Dr: Carlos Eduardo Davis Tissues: A Endometrium - Biopsy (ENDOMETRIUM) Procedures: HE/2, Gross/Micro L4 Patient: MalathiMyra Vincent [id number] (Continued) Signed (signature on file) Jeff Reardon MD 08/13/25 1411Normal [facility] Physician GroupAPTTon 97-72-9460jNNI Coag (Bld) [Time]24.7 sBon [facility] CampusComment on above: IV Heparin Therapy Range: 62.0-94.0 Bon [facility] CampusaPTT Coag (Bld) [Time]24.7 sMqjsni37.9-33.8[facility] HospitalComkresge eye institute on above:Result Comment: IV Heparin Therapy Range: 62.0-94.0Performed By: #### CDP, PTT, PT, BHCG, TSH #### [facility] [address] [place] [address] Intelligence Manager: Alexander Echevarria MD #### FT4, GLYHGB #### [employer] [address] [place] [address] Intelligence Manager: Kendrick Alegre [facility] with Auto Differentialon 55-35-5206Ovwxejnjn (Bld) [#/Vol]0.06 10*3/uLBon [facility] CampusBasophils/100 WBC (Bld)1 %0 - 2 %Bon SecParkview HealthEosinophils (Bld) [#/Vol]0.44 10*3/uLHighBon Secours Miami Valley HospitalEosinophils/100 WBC (Bld)4 %0 - 5 %[facility] Erythrocyte distribution width (RBC) [Ratio]13.8 %12.1 - 15.2 %Bon SecParkview HealthHematocrit (Bld) [Volume fraction]37.9 %36.0 - 46.0 %Bon SecParkview HealthHemoglobin (Bld) [Mass/Vol]12.0 g/dL12.0 - 16.0 g/dLBon Secours Miami Valley HospitalImmature granulocytes (Bld) [#/Vol]0.02 10*3/uLBon [facility] Immature granulocytes/100 WBC (Bld)0 %0 - 5 %[facility] Interpretation and review of laboratory resultsAbnormalBon [facility] Health Lymphocytes/100 WBC (Bld)31 %15 - 40 %[facility] SecParkview HealthLymphocytes/100 WBC (Bld)3.54 %[facility] HospitalH (RBC) [Entitic mass]24.5 pgLow26.0 - 34.0 pgBon [facility]ours [facility] HospitalHC (RBC) [Mass/Vol]31.7 g/dL31.0 - 37.0 g/dLBon SecThe Bellevue HospitalV (RBC) [Entitic vol]77.3 fLLow80.0 - 100.0 fLBanner Thunderbird Medical Center SecParkview HealthMonocytes/100 WBC (Bld)7 %4 - 8 %[facility] SecParkview Health Monocytes/100 WBC (Bld)0.76 %[facility] Sec[facility] Valley HospitalNeutrophils/100 WBC (Bld)57 %47 - 75 %Bon SecParkview HealthPlatelet mean volume (Bld) [Entitic vol]9.6 fL 6.0 - 12.0 fLBon Secours [facility] HealthPlatelets (Bld) [#/Vol]394 10*3/uLBon Secours [facility] HealthRBC (Bld) [#/Vol]4.90 10*6/uL4.00 - 5.20 m/[facility] Medical CenterSegmented neutrophils/100 WBC (Bld)6.75 %[facility] HospitalWBC other (Bld) [#/Vol]11.6HighCarilion Franklin Memorial HospitalCB with Diffon 67-53-5518Uwi. Basophil0.06 k/uLNormal0.00-0.20[facility] HospitalComment on above:Performed By: #### TSH, BHCG, PT, PTT, CDP #### [facility] [address] [place], [place] [id number] Intelligence Manager: Alexander Echevarria MD #### FT4, HBS, TREP, HIVCMB #### [facility] [employer] [address] [place], [place] [id number] Intelligence Manager: Marian Mills.Imm.Granulocyte0.02 k/uLNormal0.00-0.30[facility] HospitalComment on above:Performed By: #### TSH, BHCG, PT, PTT, CDP #### [facility] [address] [place] [id number] Intelligence Manager: Alexander Echevarria MD #### FT4, HBS, TREP, HIVCMB #### [facility] [employer] [address] [place], [place] [id number] Intelligence Manager: Marian Mills.Neutrophil (Seg)6.75 k/uLNormal2.5-7.0[facility] on above:Performed By: #### TSH, BHCG, PT, PTT, CDP #### [facility] [address] [place] [id number] Intelligence Manager: Alexander Echevarria MD #### FT4, HBS, TREP, HIVCMB #### [facility] [employer] [address] [place], [place] [id number] Intelligence Manager: Kendrick Alegre MDBasophils/100 WBC (Bld)1 %Normal0-2MHolzer Health SystemComment on above:Performed By: #### TSH, BHCG, PT, PTT, CDP #### [facility] [address] [place] [address] Intelligence Manager: Alexander Echevarria MD #### FT4, HBS, TREP, HIVCMB #### [address] [id number] Intelligence Manager: Kendrick Alegre MDEosinophils (Bld) [#/Vol]0.44 10*3/uLHigh 0.00-0.40[facility] HospitalComkresge eye institute on above:Performed By: #### TSH, BHCG, PT, PTT, CDP #### [facility] [address] [place] [address] Intelligence Manager: Alexander Echevarria MD #### FT4, HBS, TREP, HIVCMB #### [place] [id number] Intelligence Manager: Kendrick Alegre MDEosinophils/100 WBC (Bld)4 %Normal0-5[facility] on above:Performed By: #### TSH, BHCG, PT, PTT, CDP #### [facility] [address] [place] [id number] Intelligence Manager: Alexander Echevarria MD #### FT4, HBS, TREP, HIVCMB #### [place] [id number] Intelligence Manager: Kendrick Alegre MDErythrocyte distribution width (RBC) [Ratio]13.8 %Vhxtoc93.1-15.2MTrumbull Memorial Hospital on above:Performed By: #### TSH, BHCG, PT, PTT, CDP #### [facility] [address] [place] [id number] Intelligence Manager: Alexander Echevarria MD #### FT4, HBS, TREP, HIVCMB #### [address] [id number] Intelligence Manager: Kendrick Alegre MDHematocrit (Bld) [Volume fraction]37.9 %Normal 36.0-46.0[facility] on above:Performed By: #### TSH, BHCG, PT, PTT, CDP #### [facility] [address] [place] [address] Intelligence Manager: Alexander Echevarria MD #### FT4, HBS, TREP, HIVCMB #### [place] [phone] Intelligence Manager: Kendrick Alegre MDHemoglobin (Bld) [Mass/Vol]12.0 g/dLNormal 12.0-16.0[facility] on above:Performed By: #### TSH, BHCG, PT, PTT, CDP #### [facility] [address] [place] [address] Intelligence Manager: Alexander Echevarria MD #### FT4, HBS, TREP, HIVCMB #### [place] [phone] Intelligence Manager: Kendrick Alegre MDImmature granulocytes/100 WBC (Bld)0 %Normal0-5 [facility] on above:Performed By: #### TSH, BHCG, PT, PTT, CDP #### [facility] [address] [place] [address] Intelligence Manager: Alexander Echevarria MD #### FT4, HBS, TREP, HIVCMB #### [address] [phone] Intelligence Manager: Kendrick Alegre MDLymphocytes (Bld) [#/Vol]3.54 10*3/uLNormal 1.00-4.80[facility] on above:Performed By: #### TSH, BHCG, PT, PTT, CDP #### [facility] [address] [place] [address] Intelligence Manager: Alexander Echevarria MD #### FT4, HBS, TREP, HIVCMB #### [place] [id number] Intelligence Manager: Kendrick Alegre MDLymphocytes/100 WBC (Bld)31 %Uvprbh53-01CbbmwCleveland Clinic Lutheran HospitalComment on above:Performed By: #### TSH, BHCG, PT, PTT, CDP #### [facility] [address] [place] [address] Intelligence Manager: Alexander Echevarria MD #### FT4, HBS, TREP, HIVCMB #### [place] [address] Intelligence Manager: DAVID MillsCH (RBC) [Entitic mass]24.5 pgLow26.0-34.0C[facility] Lutheran HospitalComment on above:Performed By: #### TSH, BHCG, PT, PTT, CDP #### [facility] [address] [place] [address] Intelligence Manager: Alexander Echevarria MD #### FT4, HBS, TREP, HIVCMB #### [place] [address] Intelligence Manager: DAVID MillsCHC (RBC) [Mass/Vol]31.7 g/xBLiwbpj92.0-37.0 [facility] on above:Performed By: #### TSH, BHCG, PT, PTT, CDP #### [facility] [address] [place] [id number] Intelligence Manager: Alexander Echevarria MD #### FT4, HBS, TREP, HIVCMB #### [address] [id number] Intelligence Manager: DAVID MillsCV (RBC) [Entitic vol]77.3 fLLow80.0-100.0C[facility] Lutheran HospitalComment on above:Performed By: #### TSH, BHCG, PT, PTT, CDP #### [facility] [address] [place] [id number] ( Intelligence Manager: Alexander Echevarria MD #### FT4, HBS, TREP, HIVCMB #### [place] [phone] Intelligence Manager: Kendrick Alegre MDMonocytes (Bld) [#/Vol]0.76 10*3/uLNormal 0.00-1.00[facility] Luther[facility] HospitalComment on above:Performed By: #### TSH, BHCG, PT, PTT, CDP #### [facility] [address] [place] [id number] ( Intelligence Manager: Alexander Echevarria MD #### FT4, HBS, TREP, HIVCMB #### [place] [address] Intelligence Manager: Kendrick Alegre MDMonocytes/100 WBC (Bld)7 %Normal4-8C[facility] Lutheran HospitalComment on above:Performed By: #### TSH, BHCG, PT, PTT, CDP #### [facility] [address] [place] [address] Intelligence Manager: Alexander Echevarria MD #### FT4, HBS, TREP, HIVCMB #### [place] [address] Intelligence Manager: Kendrick Alegre MDNeutrophil (Seg)57 %Rrfxwf22-25EhokpCleveland Clinic Lutheran HospitalComment on above:Performed By: #### TSH, BHCG, PT, PTT, CDP #### [facility] [address] [place], [place] [phone] Intelligence Manager: Alexander Echevarria MD #### FT4, HBS, TREP, HIVCMB #### [address] [phone] Intelligence Manager: Tanika Mills mean volume (Bld) [Entitic vol]9.6 fL Normal6.0-12.0[facility] on above:Performed By: #### TSH, BHCG, PT, PTT, CDP #### [facility] [address] [place], [place] [phone] Intelligence Manager: Alexander Echevarria MD #### FT4, HBS, TREP, HIVCMB #### [address] [phone] Intelligence Manager: Inga Mills (Bld) [#/Vol]394 10*3/zOQkvvuo242-210 [facility] on above:Performed By: #### TSH, BHCG, PT, PTT, CDP #### [facility] [address] [place], [place] [phone] Intelligence Manager: Alexander Echevarria MD #### FT4, HBS, TREP, HIVCMB #### [address] [address] Intelligence Manager: BRIA Mills (Bld) [#/Vol]4.90 10*6/uLNormal4.00-5.20 [facility] on above:Performed By: #### TSH, BHCG, PT, PTT, CDP #### [facility] [address] [place], [place] [phone] Intelligence Manager: Alexander Echevarria MD #### FT4, HBS, TREP, HIVCMB #### [address] [phone] Intelligence Manager: Kendrick Alegre MDWBC (Bld) [#/Vol]11.6 10*3/uLHigh3.5-11.0[facility] on above:Performed By: #### TSH, BHCG, PT, PTT, CDP #### [facility] [address] [place] [address] Intelligence Manager: Alexander Echevarria MD #### FT4, HBS, TREP, HIVCMB #### [facility] [employer] [address] [place], [place] [phone] Intelligence Manager: ALIA Mills, Quanton 84-39-9756NVL, Quant<0.2Normal<5 [facility] on above:Result Comment: Non-preg premeno <=5 Postmeno <=8 Male <=3 If HCG results do not concur with clinical observations, additional testing to confirm results is recommended.Performed By: #### CDP, PTT, PT, BHCG, TSH #### [facility] [address] [place] [address] Intelligence Manager: Alexander Echevarria MD #### FT4, GLYHGB #### [address] [phone] Intelligence Manager: ALIA Mills, Quantitative, Pregnancyon 08-01-2025 HCG.beta subunit QnNINFBon [facility] CampusComkres[facility] on above: Non-preg premeno <=5 Postmeno <=8 Male <=3 If HCG results do not concur with clinical observations, additional testing to confirm results is recommended. Bon [facility] CampusHIV Ag/Abon 15-19-0550NLX Ag/AbNon-ReactiveNormalNRCleveland Clinic Lutheran HospitalComkresge eye institute on above:Result Comment: No laboratory evidence of HIV infection. If acute HIV infection is suspected, consider testing for HIV-1 RNA.Performed By: #### CDP, PTT, PT, BHCG, TSH #### [facility] [address] [facility] [place] [address] Intelligence Manager: Alexander Echevarria MD #### PIERO SCHRADER #### [employer] [facility] [place], [place] [phone] Intelligence Manager: Kendrick Alegre MDHIV Screenon 37-20-8654WTG 1+2 Ab+HIV1 p24 Ag IA QlNon-ReactiveNONREACTIVEBon [facility] on above:No laboratory evidence of HIV infection. If acute HIV infection is suspected, consider testing for HIV-1 RNA. Bon [facility] CampusHep B Surf Agon 83-13-3951Wiq B Surf AgNon-Reactive West PointNRMetroHealth [facility] on above:Performed By: #### CDP, PTT, PT, BHCG, TSH #### [facility] [address] [place] [address] Intelligence Manager: Alexander Echevarria MD #### PIERO SCHRADER #### [employer] [address] [place] [address] [phone] Intelligence Manager: Kendrick Alegre MDHepatitis B Surface Antigenon 94-57-3210OEI surface Ag IA QlNon-ReactiveNONRESentara [facility] Panel Informationon 14-43-0679[facility] 86-10-5260HAG Coag (PPP) [Relative time]1.0 {INR}[facility] on above:Result Comment: Therapeutic Range: Moderate Anticoagulant Intensity: INR = 2.0-3.0 High Anticoagulant Intensity: INR = 2.5-3.5Performed By: #### CDP, PTT, PT, BHCG, TSH #### [facility] [address] [place] [address] Intelligence Manager: Alexander Echevarria MD #### PIERO SCHRADER #### [facility] [employer] [facility] [place], [place] [phone] Intelligence Manager: SENG Mills Coag (PPP) [Time]13.7 aSkrnkh73.5-14.2MTrumbull Memorial Hospital on above:Performed By: #### CDP, PTT, PT, BHCG, TSH #### [facility] [address] [place] [address] Intelligence Manager: Alexander Echevarria MD #### FT4, GLYHGB #### [facility] [employer] [facility] [place], [place] [phone] Intelligence Manager: TRAE Millsrotime-INRon 35-21-5643UQF Coag (PPP) [Relative time]1.0 {INR}[facility] on above: Therapeutic Range: Moderate Anticoagulant Intensity: INR = 2.0-3.0 High Anticoagulant Intensity: INR = 2.5-3.5 PT Coag (PPP) [Time]13.7 sBon [facility] HospitalT. pallidum Abon 08-01-2025T. pallidum Ab IA Ql (S)Non-ReactiveNONREACTIVEBath Community Hospital on above: T. pallidum antibodies are not detected. There is no serological evidence of infection with T. pallidum (early primary syphilis cannot be excluded). Retest in 2-4 weeks if syphilis is clinically suspect. T.pallidum Ab Screenon 08-01-2025T.pallidum Ab ScreenNon-ReactiveNormalMercy Health St. [facility] on above:Result Comment: T. pallidum antibodies are not detected. There is no serological evidence of infection with T. pallidum (early primary syphilis cannot be excluded). Retest in 2-4 weeks if syphilis is clinically suspect.Performed By: #### CDP, PTT, PT, BHCG, TSH #### [facility] [address] [place] [address] Intelligence Manager: Alexander Echevarria MD #### FT4, GLYHGB #### [facility] [employer] [address] [place], [place] [phone] Intelligence Manager: Kendrick Alegre MDT4, Freeon 48-97-6766Qiwj T4 [Mass/Vol]1.0 ng/dL 0.92 - 1.68 ng/dLBon [facility] HospitalTSHon 11-15-2534RPX Qn1.76 m[IU]/LBon [facility] Thyroid Stim. Horm.on 07-17-8877Xigaszt Stim. Horm.1.76 uIU/mLNormal0.27-4.20 [facility] HospitalComment on above:Performed By: #### CDP, PTT, PT, BHCG, TSH #### [facility] [address] [place] [address] Intelligence Manager: Alexander Echevarria MD #### FT4, GLYHGB #### [employer] [facility] [place] [address] Intelligence Manager: Kendrick Alegre MDThyroxine, Freeon 20-99-3356Rcquzriop, Free1.0 ng/dLNormal0.92-1.68[facility] Luther[facility] HospitalComment on above:Performed By: #### CDP, PTT, PT, BHCG, TSH #### [facility] [address] [place] [address] Intelligence Manager: Alexander Echevarria MD #### FT4, GLYHGB #### [employer] [facility] [place] [address] Intelligence Manager: Kendrick Alegre MDUS PELVIS COMPLETE NON-OB TRANSABDOMINAL AND TRANSVAGINALon 24-06-7402UB PELVIS COMPLETE NON-OB TRANSABDOMINAL AND TRANSVAGINALEXAM: US PELVIS COMPLETE NON-OB TRANSABDOMINAL AND TRANSVAGINAL [...] by: Gabriel Fatima Jr., MD 07/17/25 Final resultNormalMercy [facility] Hospital Pelvis transabdominal and transvaginalon 07-17-2025 Physiologic small left ovarian cyst. [facility] CONSOLIDATEDEXAM: US PELVIS COMPLETE NON-OB TRANSABDOMINAL AND TRANSVAGINAL HISTORY: Examination for, follow-up COMPARISON: None. FINDINGS: Uterus: 10.3 x 4.9 x 6.4 cm Right ovary: 2.7 x 2.5 x 1.5 cm. Left ovary: 3.9 x 3.1 x 2.7 cm. Endometrial thickness 6.6 mm. 3.4 cm benign left ovarian cyst with thin wall, no internal septations or nodularity. [facility] CONSOLIDATEDGabriel Fatima Jr., MD - 07/17/2025 EXAM: US [...] nodularity. IMPRESSION: Physiologic small left ovarian cyst. [facility] [employer] [facility] Pelvis transabdominal and transvaginalOrdered By: Gabriel Fatima on 83-18-0516Gsi [facility] Medical CenterShuoren [employer] Work Phone: US Pelvis transabdominal and transvaginalon 07-16-2025 Radiology Study observation (narrative)[facility] EdxactProvider Letteron [phone] LetterProvider Letter June 13, 2025 Dear Myra Valencia , We have been trying to reach you with no success. It is important that you return our call at [phone] regarding your test results upon receiving this letter. Also, at the time of your call, please provide us with your current information. Thank you for your prompt attention to this matter. Sincerely, Guicho Gloria [facility] SouthCOMPLICATED GENITOURINARY INFECTION (HTRX)on 31-43-7358SCZOTDPWQZLSL PGNQOHAH2MRCW HealthcareACINETOBACTER BAUMANIINot detectedNOMS HealthcareCANDIDA ALBICANS, PARAPSILOSIS, NCIWKHPQZS1QTSC HealthcareCANDIDA ALBICANS, PARAPSILOSIS, TROPICALISNot detectedNOMS HealthcareCANDIDA HMSPYYPM0HIWT HealthcareCANDIDA GLABRATANot detectedNOMS HealthcareCANDIDA IWFRNY1FVMF HealthcareCANDIDA KRUSEI Not detectedNOMS HealthcareCHLAMYDIA SIZWNELDSQR8MHCC HealthcareCHLAMYDIA TRACHOMATISNot detectedNOMS HealthcareCITROBACTER SCFFXIOS7TIRW Healthcare CITROBACTER FREUNDIINot detectedNOMS HealthcareENTEROBACTER AEROGENES, CLOACAE0 NOMS HealthcareENTEROBACTER AEROGENES, CLOACAENot detectedNOMS Healthcare ENTEROCOCCUS FAECALIS, XSNDHRY68.918AbnormalNOMS HealthcareENTEROCOCCUS FAECALIS, FAECIUMDetectedAbnormalNOMS HealthcareESCHERICHIA MBWP7CIIY Healthcare ESCHERICHIA COLINot detectedNOMS HealthcareInterpretation and review of laboratory resultsAbnormalNOMS HealthcareKLEBSIELLA PNEUMONIAE, ZLHVNVN5ZIYO HealthcareKLEBSIELLA PNEUMONIAE, OXYTOCANot detectedNOMS HealthcareMORGANELLA BPKYYVJI4VIUY HealthcareMORGANELLA MORGANIINot detectedNOMS HealthcareMYCOPLASMA GHORJRZWRC7OOMG HealthcareMYCOPLASMA GENITALIUMNot detectedNOMS Healthcare MYCOPLASMA NGDLLNZ03.425AbnormalNOMS HealthcareMYCOPLASMA HOMINISDetected AbnormalNOMS HealthcareNEISSERIA UQENKRARFRC7ZQJX HealthcareNEISSERIA GONORRHOEAENot detectedNOMS HealthcarePROTEUS MIRABILIS, LKUBVUDV9QZDK HealthcarePROTEUS MIRABILIS, VULGARISNot detectedNOMS HealthcarePSEUDOMONAS DZQWUDFXIW5FOBL HealthcarePSEUDOMONAS AERUGINOSANot detectedNOMS Healthcare SERRATIA YXQVKMMZXN0MFSV HealthcareSERRATIA MARCESCENSNot detectedNOMS HealthcareSTAPHYLOCOCCUS DFLPVH7AJUF HealthcareSTAPHYLOCOCCUS AUREUSNot detected NOMS HealthcareSTAPHYLOCOCCUS EPIDERMIDIS, HAEMOLYTICUS, HVFHSFWFKKA1IUFM HealthcareSTAPHYLOCOCCUS EPIDERMIDIS, HAEMOLYTICUS, LUGDUNENSISNot detectedNOMS HealthcareSTAPHYLOCOCCUS OFREXJRKNGOHN1VGQY HealthcareSTAPHYLOCOCCUS SAPROPHYTICUSNot detectedNOMS HealthcareSTREPTOCOCCUS AGALACTIAE (GROUP B STREP) 0NOMS HealthcareSTREPTOCOCCUS AGALACTIAE (GROUP B STREP)Not detectedNOMS HealthcareSTREPTOCOCCUS PYOGENES (GROUP A STREP)0NOMS HealthcareSTREPTOCOCCUS PYOGENES (GROUP A STREP)Not detectedNOMS HealthcareTRICHOMONAS BQQLLGHSK1WXZS HealthcareTRICHOMONAS VAGINALISNot detectedNOMS HealthcareUREAPLASMA GGJKMF8IOMG HealthcareUREAPLASMA PARVUMNot detectedNOMS HealthcareUREAPLASMA UREALYTICUM 29.383AbnormalNOMS HealthcareUREAPLASMA UREALYTICUMDetectedAbnormalNOMS HealthcareNOMS HealthcareChlam/GC/Trich,NAAon 75-29-0740Zbvpsujob by NAANegative Invalid Interpretation CodeNegativeOhiohealth Southeastern Medical CenterComment on above: Performed By: #### [id number] #### [facility] [address] [place], [place] [address]Ibucszwlnv by NAANegativeInvalid Interpretation CodeNegative [facility] Medical CenterComment on above:Performed By: #### [id number] #### [facility] [address] [place], [place] [address]Xqggb vag by NAANegativeInvalid Interpretation CodeNegative [facility] Southeastern Medical CenterComment on above:Result Comment: Performed at: =G [address] [id number] MD Franco ManaliPerformed By: #### [id number] #### [facility] [address] [place], [place] [address]Fxcirfrhjl macro (dipstick) panel (U)on 54-35-9930Ckiyrpcqe, UA NegativeNegative - 4(70) +++ mg/dLNOWV HealthcareBlood, UANegativeNegative - 50 Jonel/mcLNOMS HealthcareClarity, UAClearNOMS HealthcareColor, UAYellowNOMS HealthcareGlucose, UANegativeNegative - 2000(110) ++++ mg/dLNOWV Healthcare Interpretation and review of laboratory resultsNormalNOWV HealthcareKetones, UA NegativeNegative - 160(16) ++++ mg/dLNOWV HealthcareLeukocytes, UANegative Negative - 500+++ Blaine/mcLNOWV HealthcareNitrite, UANegativeNegative - Positive NOMS HealthcarepH, UA65 - 9NOWV HealthcareProtein, UANegativeNegative - 2000(20) ++++ mg/dLNOWV HealthcareSpec Grav, UA1.0151 - 1.03NOWV HealthcareUrobilinogen, UA0.20.2 - 12 mg/dLNOWV HealthcareNOMS HealthcareC Urineon 88-55-4757Jgwxsbni identified Cx Nom (U)Microbiology PROCEDURE: Urine Culture [R1] SOURCE: U CleanCatch BODY SITE: COLLECTED DATE/TIME: 06/07/2025 12:45 EDT RECEIVED DATE/TIME: 06/07/2025 17:09 EDT START DATE/TIME: 06/07/2025 17:09 EDT FREE TEXT SOURCE: Grace BARRY, Heydi RICHARDSON-Prabha, Heydi FINAL REPORTS Final Report [] Verified Date/Time: 06/09/2025 06:40 EDT 1,000 cfu/ml Mixed skin contaminants Performing Locations R1: This test was performed at: [facility], [address] [place] [address], [phone] , , GggnhdQrylxbOhioHealth Berger HospitalComment on above:Performed By: #### [id number] #### [facility] [address] [place] [address]Kbzjndiqe/Vaginosis, DNA Probeon 31-45-2097Bhmpxam Species NegativeInvalid Interpretation CodeNegativeOhiohealth Southeastern Medical CenterComment on above:Performed By: #### [id number] #### [facility] [address] [place] [address]Liovzjabugk vaginalisPositiveAbnormalNegParkwood HospitalComment on above:Performed By: #### [id number] #### [facility] [address] [place] [address]Gdfybiurfma vaginalisNegativeInvalid Interpretation Code NegativeOhiohealth Southeastern Medical CenterComment on above:Result Comment: Performed at: [facility] [id number] PhD Moraima Laraformed By: #### [id number] #### [facility] [address] [place], [place] [address]OIGnk 24-30-9563Iinvw gap [Moles/Vol]11 mmol/LNormal6-16[facility] Southeastern Medical CenterComment on above:Performed By: #### [id number] #### [facility] [address] [place], [place] [address]KMP/Creat Ratio15 No KiqoiQebuhb87-15ZscyegOhiohealth Southeastern Medical CenterComment on above:Performed By: #### [id number] #### [facility] [address] [place], [place] [address]Apiahnd [Mass/Vol]9.2 mg/dLNormal8.9-11.1FSt. Mary's Medical CenterComment on above:Performed By: #### [id number] #### [facility] [address] [place], [place] [address]Patlyzsa [Moles/Vol]103 mmol/YUwgspm376-679DjpivtOhiohealth Southeastern Medical CenterComment on above:Performed By: #### [id number] #### [facility] [address] [place], [place] [address]BO2 [Moles/Vol]26 mmol/MReseym28-36IoymfjOhiohealth Southeastern Medical Center Comment on above:Performed By: #### [id number] #### [facility] [address] [place], [place] [address]Rnpnzfykwc [Mass/Vol]0.8 mg/dLNormal0.5-1.3FSt. Mary's Medical CenterComment on above:Performed By: #### [id number] #### [facility] [address] [place], [place] [address]Gpfpxbb [Mass/Vol]109 mg/pCKquycm62-774UqhhbuOhiohealth Southeastern Medical CenterComment on above:Performed By: #### [id number] #### [facility] [facility] [address] [place], [place] [address]Dnsrhkfgd [Moles/Vol]3.7 mmol/LNormal3.5-5.3FSt. Mary's Medical CenterComment on above:Performed By: #### [id number] #### [facility] [address] [place], [place] [address]Fyowiw [Moles/Vol]136 mmol/ULvsmwc196-970TfcikwOhiohealth Southeastern Medical CenterComment on above:Performed By: #### [id number] #### [facility] [address] [place], [place] [address]Ichg nitrogen [Mass/Vol]12 mg/dLNormal5-21[facility]heastern Medical CenterComment on above:Performed By: #### [id number] #### [facility] [address] [place], [place] [address]TKO w/ Auto Diffon 22-05-1912Agluidwz Absolute0.1 E9/LNormal 0.0-0.2FSt. Mary's Medical CenterComment on above:Performed By: #### [id number] #### [facility] [address] [place], [place] [address]Nxqibnspg/100 WBC (Bld)0.7 %Normal0.0-2.0[facility] Southeastern Medical CenterComment on above:Performed By: #### [id number] #### [facility] [address] [place], [place] [address]Xej Absolute0.2 E9/LNormal0.0-0.5FSt. Mary's Medical Center Comment on above:Performed By: #### [id number] #### [facility] [address] [place], [place] [address]Wipeqodipxj/100 WBC (Bld)1.9 %Normal0.0-8.0[facility] Southeastern Medical CenterComment on above:Performed By: #### [id number] #### [facility] [address] [place], [place] [address]Ikqsxaoqiuk distribution width (RBC) [Ratio]15.5 %High10.9-14.2 [facility] Medical CenterComment on above:Performed By: #### [id number] #### [facility] [address] [place] [address]Llxfcotvle (Bld) [Volume fraction]33.8 %Low34.0-46.0[facility] Southeastern Medical CenterComment on above:Performed By: #### [id number] #### [facility] [address] [place] [address]Tknmsdgkgw (Bld) [Mass/Vol]12.0 g/gTTqydzl56.0-16.0[facility] Medical CenterComment on above:Performed By: #### [id number] #### [facility] [address] [place] [address]Jvjmr Absolute3.9 E9/LNormal1.0-4.0[facility] Comment on above:Performed By: #### [id number] #### [facility] [address] [place] [address]Lgmsokjvgex/100 WBC (Bld)31.6 %Wycfso52.0-50.0[facility] Medical CenterComment on above:Performed By: #### [id number] #### [facility] [address] [place] [address]LXM (RBC) [Entitic mass]27.0 sdDawidh59.0-34.0[facility] Medical CenterComment on above:Performed By: #### [id number] #### [facility] [address] [place] [address]ZKQQ (RBC) [Mass/Vol]35.5 g/gGJwjryk78.4-36.0[facility] Medical CenterComment on above:Performed By: #### [id number] #### [facility] [address] [place] [address]CKU (RBC) [Entitic vol]75.9 fLLow80.0-100.0[facility] Medical CenterComment on above:Performed By: #### [id number] #### [facility] [address], [place] [address]Xbhq Absolute1.0 E9/LNormal0.2-1.0[facility] Comment on above:Performed By: #### [id number] #### [facility] [address] [place] [address]Cgqfgszhr/100 WBC (Bld)8.2 %Normal4.0-14.0[facility]heastern Medical CenterComment on above:Performed By: #### [id number] #### [facility] [address] [place] [address]Xrxqqm Absolute7.0 E9/LNormal2.0-7.5FSt. Mary's Medical Center Comment on above:Performed By: #### [id number] #### [facility] [address] [place] [address]Hgqfnd Auto57.6 %Yghkfq54.0-75.0[facility] Comment on above:Performed By: #### [id number] #### [facility] [address] [place] [address]Uscbvkhb408.0 E9/BElldxl337.0-500.0[facility] Comment on above:Performed By: #### [id number] #### [facility] [address] [place] [address]Msckhkxt mean volume (Bld) [Entitic vol]7.9 fLNormal6.4-10.8 [facility] Medical CenterComment on above:Performed By: #### [id number] #### [facility] [address] [place] [address]WGO8.5 E12/LNormal4.3-5.9[facility] Medical CenterComment on above:Performed By: #### [id number] #### [facility] [address] [place] [address]MWQ01.2 E9/LHigh4.0-11.0[facility] Medical CenterComment on above:Performed By: #### [id number] #### [facility] [address] [place], [place] [address] Abdomen/Pelvis w/ Contraston 07-96-9546FH Abdomen/Pelvis w/ ContrastExam Date/Time: 06/07/2025 14:49 EDT Reason for Exam: ABDOMINAL PAIN, ACUTE, NONLOCALIZED;Other (please specify) Report IMPRESSION: NO ACUTE INTRA-ABDOMINAL PROCESS IDENTIFIED. EXAM: CT Abdomen/Pelvis w/ Contrast DATE: 06/07/2025 2:27 PM CLINICAL HISTORY: ABDOMINAL PAIN, ACUTE, NONLOCALIZED. Technologist Comments: Pt presents to ED with complaints of lower abd pain and frequency of urination. episode of diaphoresis with vomiting last night. states no abd sx. COMPARISON: None available. TECHNIQUE: Spiral imaging was obtained of the abdomen and pelvis after the uneventful infusion of intravenous contrast. All CT scans at this facility use dose modulation, iterative reconstruction, and/or weight based dosing when appropriate to reduce radiation dose to as low as reasonably achievable. Unless otherwise stated, incidental findings identified in this report do not require routine follow-up imaging. FINDINGS: Liver: Mildly enlarged with developmental elongation of the right lobe and moderate fatty infiltration. No suspicious mass or lesion. Biliary: The nearly decompressed gallbladder is otherwise unremarkable. No abnormal biliary ductal dilatation. Pancreas: No suspicious mass, organized fluid collection, surrounding inflammation, or abnormal pancreatic ductal dilatation. Spleen: Within normal limits. Adrenals: Within normal limits. Kidneys: No hydronephrosis, significant urinary tract calculi, or suspicious mass. GI tract: No abnormal dilation, wall thickening, or suspicious mass. Normal appendix. Lymph nodes: No pathologically enlarged lymph nodes. Vasculature: No aneurysm or dissection. Mesentery/peritoneum/retroperitoneum: No free fluid, organized fluid collection, inflammatory changes, or suspicious mass. Pelvis: Approximately 2.5 cm low density nonenhancing cyst within an otherwise unremarkable-appearing right ovary. The urinary bladder, uterus, and left adnexa appear within normal limits. Musculoskeletal: No acute osseous findings identified. Mild to moderate degenerative changes, predominantly of the lumbosacral junction. Lower thorax: Noncontributory. Report GFR (mL/min/1/73m2) >60 Contrast: Isovue 300 Contrast amount in ml's: 100.00 Ordering Provider: Cameron Brar FINAL REPORT Dictated: 06/07/2025 3:01 pm Leonel Garibay MD Signed (Electronic Signature): 06/07/2025 3:01 pm Signed by: Leonel Garibay MD Transcribed by: MELECIO Technologist: Christina [facility] Clinical Summaryon [id number] Clinical SummaryED Clinical Summary [place] [id number] ED Clinical Summary Person Information Name: MYRA VALENCIA/[facility] Age: 40 Years : 1985 Sex: Female Language: Latvian PCP: KRYSTAL GARCIA DO Marital Status: Single Phone: [phone] Visit Id: Visit Reason: Vomiting; Abdominal pain; Genitourinary problem; RT SIDED ABD PAIN Speciality: Acuity: 3 Enc Type: Emergency Med Service: Emergency Arrival: 06/07/2025 13:25:00 Discharge: 06/07/2025 18:13:43 LOS: 000 04:48 Checkin: 06/07/2025 13:25:00 Checkout: 06/07/2025 18:13:43 Dispo Type: Home (Routine DC) EVENTS: Event Name Event Status Request Date/Time Start Date/Time Complete Date/Time Arrive Complete 06/07/2025 13:25:00 06/07/2025 13:25:00 06/07/2025 13:25:00 Document Home Meds Request 06/07/2025 13:25:00 Triage Complete 06/07/2025 13:25:00 06/07/2025 13:30:59 06/07/2025 13:30:59 Bed Assign Complete 06/07/2025 13:26:40 06/07/2025 13:26:40 06/07/2025 13:26:40 Dr Exam Complete 06/07/2025 13:26:40 06/07/2025 13:27:33 06/07/2025 13:27:33 RN Exam Complete 06/07/2025 13:26:40 06/07/2025 14:13:40 06/07/2025 14:13:40 Registration Complete 06/07/2025 13:26:52 06/07/2025 13:26:52 06/07/2025 13:26:52 Reg Complete Request 06/07/2025 13:26:52 Reg Bed Request Complete 06/07/2025 13:26:52 06/07/2025 13:26:52 06/07/2025 13:26:52 Registration Complete 06/07/2025 13:27:33 06/07/2025 14:58:57 06/07/2025 14:58:57 CT Complete 06/07/2025 13:43:54 06/07/2025 14:27:15 06/07/2025 14:49:20 Meds Admin Request 06/07/2025 13:43:54 Pending Labs Complete 06/07/2025 13:43:54 06/07/2025 14:27:08 Lab Complete 06/07/2025 13:43:54 06/07/2025 14:27:08 Meds Admin Complete 06/07/2025 13:44:15 06/07/2025 14:06:58 Pending Labs Complete 06/07/2025 13:51:06 06/07/2025 14:20:22 Lab Complete 06/07/2025 13:51:06 06/07/2025 14:20:22 Urine Collect Complete 06/07/2025 13:51:06 06/07/2025 14:20:22 Patient Care Request 06/07/2025 13:55:36 Pending Labs Cancel 06/07/2025 13:55:58 06/07/2025 14:14:15 Meds Admin Complete 06/07/2025 13:57:46 06/07/2025 14:06:58 Pending Labs Complete 06/07/2025 14:02:36 06/07/2025 14:02:36 06/07/2025 14:27:08 Lab Complete 06/07/2025 14:02:36 06/07/2025 14:02:36 06/07/2025 14:27:08 Pending Labs Request 06/07/2025 14:16:55 Pending Labs Request 06/07/2025 14:17:49 Blood Collect Request 06/07/2025 14:17:49 NPO Request 06/07/2025 14:18:00 US Complete 06/07/2025 15:11:20 06/07/2025 16:54:59 Discharge Complete 06/07/2025 17:57:06 06/07/2025 18:13:50 06/07/2025 18:13:50 Meds Admin Request 06/07/2025 18:02:25 Meds Admin Complete 06/07/2025 18:09:36 06/07/2025 18:11:46 Transfer Complete 06/07/2025 18:13:50 06/07/2025 18:13:50 06/07/2025 18:13:50 AD[address]: [address] [facility] [id number] PHYS DOC NOTES: MEDICAL INFORMATION: Prescriptions Given: New Medications [facility], [address] [place], [place] [id number], [phone] ondansetron (Zofran 4 mg Tab) 1 Tablets By Mouth every 8 hours for 7 Days. Refills: 0. Medications to Continue with No Changes Other Medications cephalexin (Keflex 500 mg Cap) 1 Capsules By Mouth 2 times a day for 5 Days. Refills: 0. diltiazem (DilTIAZem (Eqv-Cardizem CD) 180 mg/24 hours oral capsule, extended release) escitalopram (escitalopram 10 mg Tab) fluconazole (Diflucan 150 mg Tab) 1 Tablets By Mouth Once. Take one tablet at first sign of symptoms, repeat in 3 days if needed if symptoms persist. Refills: 0. omeprazole (omeprazole 40 mg Cap-DR) PATIENT EDUCATION INFORMATION: Instructions: Ovarian Cyst Follow up: With: Address: When: [address] [place], [place] [id number] Business (1) In 3 days DIAGNOSIS: 1:Ovarian cyst; 2:Increased urinary frequency; 3:Abdominal pain; 4:Nausea and vomitingSukumar Gloria Medical CenterED Note-Physicianon [id number] Note-PhysicianED Note-Physician Basic Information Time Seen: Cameron Brar DO 06/07/2025 13:27 Chief Complaint Pt presents to ED with complaints of lower abd pain and frequency of urination. episode of diaphoresis with vomiting last night. History of Present Illness Patient is a 40-year-old female presenting for evaluation of lower abdominal pain nausea vomiting frequent urination diaphoresis initially started last night. She had decreased appetite. She states she had an alcoholic beverage and felt nauseous had to leave the restaurant without pain or bill. Someone else ended up paying her bill for her. She thought that she might have a urinary tract infection because she was having increased urinary frequency so she took some Keflex that she had at home and expected to wake up feeling better. Instead she woke up with the same right lower quadrant abdominal pain. Some nausea vomiting with this. Has felt unwell. Went to urgent care and they did a urinalys is test on her. Then sent her here for further evaluation for possible appendicitis. Denies any history of abdominal surgeries. Currently having moderate intensity pain. Review of Systems Constitutional: no fever, no chills, positive for sweats no weakness HEENT: no sore throat, ear pain, sinus congestion Respiratory: no SOB, no cough, no orthopnea, no wheezing Cardiovascular: no chest pain, no palpitations, no edema Abdomen: Positive for right lower quadrant abdominal pain nausea vomiting, denies diarrhea Extremities: no swelling Neurological: no dizziness, confusion, headache Additional ROS info: Except as noted above in the above review of systems and in the history of present illness all other systems have been reviewed and are negative or noncontributory Physical Exam Vitals & Measurements T: 37.0 ???C(Oral) HR: 94(Peripheral) RR: 18 BP: 185/108 SpO2: 96% HT: 162 cm WT: 144.5 kg BMI: 55.06 Constitutional: No acute distress, nontoxic, non ill appearing Heart: Regular rate and rhythm without murmurs, gallops or rubs Lungs: clear to auscultation bilaterally without wheezes, rales or rhonchi Abdomen: soft, tender in the right lower quadrant, nondistended abdomen positive Rovsing sign. No CVA tenderness. Extremities: warm and dry bilaterally without pitting edema Neurological: awake, alert answers questions appropriately Medical Decision Making Patient received Zofran for nausea IV fluid bolus. Will obtain labs and CT scan abdomen pelvis to evaluate for acute appendicitis. We were able to see the patient's urinalysis specimen at urgent care and the patient was not testedfor . Will send off hCG to evaluate for any evidence of ectopic , there was not any evidence of urinary tract infection. Patient last ate some pretzels at 10 AM. She has been drinking fluids up until noon. Showing mild leukocytosis WBC 12.9, otherwise unremarkable, BMP unremarkable LFTs and lipase unremarkable. hCG wasnegative. CAT scan abdomen pelvis showing normal-appearing appendix, patient does have 2.5 cm rightlower quadrant ovarian cyst. Obtain ultrasound to check for evidence of torsion. Ultrasound does not show any evidence of ovarian torsion. Patient feeling better on recheck. Pain was starting to come back. We discussed the results of the workup. We discussed plan for follow-up with OB supportive care. She may puncture down seen for pain and Zofran as needed for nausea and vomiting. Ordered some more Toradol for her before she goes. We did discuss finishing up her course of Keflex in the event that she has a partially treated UTI. She is agreeable plan, she was discharged home. Assessment/Plan 1. Ovarian cyst (N83.209: Unspecified ovarian cyst, unspecified side) 2. Increased urinary frequency (R35.0: Frequency of micturition) 3. Abdominal pain (R10.9: Unspecified abdominal pain) 4. Nausea and vomiting (R11.2: Nausea with vomiting, unspecified) Orders: ketorolac, 15 mg = 1 mL, Injection, IV Push, Once, Stop date 06/07/25 13:57:00 EDT, STAT, Start date 06/07/25 13:57:00 EDT, 06/07/25 13:57:00 EDT ketorolac, 15 mg = 1 mL, Injection, IV Push, Once, Stop date 06/07/25 18:02:00 EDT, STAT, Start date 06/07/25 18:02:00 EDT, 06/07/25 18:02:00 EDT ondansetron, 4 mg = 2 mL, Injection, IV Push, Once, Stop date 06/07/25 13:44:00 EDT, STAT, Start date 06/07/25 13:44:00 EDT, 06/07/25 13:44:00 EDT ondansetron, 4 mg = 1 tab(s), Oral, q8hr, X 7 day(s), # 21 tab(s), Refills(s) 0, Pharmacy: [facility], 162, cm, 06/07/25 13:30:00 EDT, Height/Length Dosing, 144.5, kg, 06/07/25 13:30:00 EDT, Weight Dosing Sodium Chloride 0.9% intravenous solution 1,000 mL, 1,000 mL, IV, 20 mL/hr, STAT, Start date 06/07/25 13:43:00 EDT, 50 hour(s), Total volume (mL): 1,000, 144.5 kg, 2.55, m2 ABO/Rh ABO/Rh History Check Antibody Screen Basic Metabolic Panel Blood Bank ID# CBC w/ Auto Diff CT Abdomen/Pelvis w/ Contrast eGFR Hepatic Function Panel Lipase Level NPO Diet U Beta Hcg Qual UA (more content not included)...[facility] CenterComment on above:Result Comment: Electronically Signed By: Cameron Brar DO\.br\Date and Time Signed: 06/07/25 18:03 EDTED Patient Summaryon [id number] Patient SummaryED Patient Summary [place] [id number] Patient Discharge Instructions Person Information Name: MYRA VALENCIA Age: 40 Years Arrival Date: 06/07/2025 13:25:00 Discharge Diagnosis: 1:Ovarian cyst; 2:Increased urinary frequency; 3:Abdominal pain; 4:Nausea and vomiting Primary Care Physician: KRYSTAL GARCIA DO Provider Information Primary Provider: Cameron Brar DO [employer] Worker:None The exam and treatment you received in the Emergency Department were for an urgent problem and are not intended as complete care. It is important that you follow up with a doctor, nurse practitioner,or physician???s ophthalmic medical assistant for ongoing care. If your symptoms become worse or you do not improve asexpected and you are unable to reach your usual health care provider, you should return to the Emergency Department. We are available 24 hours a day. MYRA VALENCIA has been given the following list of patient education materials, prescriptions and follow-up instructions: Follow-up Instructions: With: Address: When: [address] [place] [address] Business (1) In 3 days In the event that this physician does not participate in your insurance network, please consult with your insurance company to find a nearby participating provider. Patient Education Materials: Ovarian Cyst A MESSAGE TO ALL PATIENTS REGARDING OPIOIDS PRESCRIPTION OPIOIDS: WHAT YOU NEED TO KNOW Prescription opioids can be used to help relieve skcrccbc-ga-dlgmau pain and are often prescribed following a surgery or injury, or for certain health conditions. These medications can be an important part of the treatment but also come with serious risks. It is important to work with your healthcare provider to make sure you are getting the safest, most effective care. WHAT ARE THE RISKS AND SIDE EFFECTS OF OPIOID USE? Prescription opioids carry serious risks of addiction and overdose, especially with prolonged use. An opioid overdose, often marked by slowed breathing, can cause sudden . The use of prescription opioids can have a number of side effects as well, even when taken as directed: ??? Tolerance???meaning you might need to take more of the medication for the same pain relief ??? Physical dependence???meaning you have symptoms of withdrawal when a medication is stopped ??? Increased sensitivity to pain ??? Constipation ??? Nausea, vomiting, and dry mouth ??? Sleepiness and dizziness ??? Confusion ??? Depression ??? Low levels of testosterone that can result in lower sex drive, energy, and strength ??? Itching and sweating RISKS ARE GREATER WITH: ??? History of drug misuse, substance use disorder, or overdose ??? Mental health conditions (such as depression or anxiety) ??? Sleep apnea ??? Older age (65 years and older) ??? Avoid alcohol while taking prescription opioids. Also, unless specifically advised by your health care provider, medications to avoid include: ??? Benzodiazepines (such as Xanax or Valium) ??? Muscle relaxants (such as Soma or Flexeril) ??? Hypnotics (such as Ambien or Lunesta) ??? Other prescription opioids KNOW YOUR OPTIONS Talk to your health care provider about ways to manage your pain that don???t involve prescription opioids. Some of these options may actually work better and have fewer risks and side effects. Options may include: ??? Pain relievers such as acetaminophen, ibuprofen, and naproxen ??? Some medication that are also used for depression or seizures ??? Physical therapy and exercise ??? Cognitive behavioral therapy, a psychological, goal-directed approach, in which patients learn how to modify physical, behavioral, and emotional triggers of pain and stress. IF YOU ARE PRESCRIBED OPIOIDS FOR PAIN: ??? Never take opioids in greater amounts or more often than prescribed. ??? Follow up with your primary health care provider. o Work together to create a plan on how to manage your pain. o Talk about ways to help manage your pain that don???t involve prescription opioids. o Talk about any and all concerns and side effects. ??? Help prevent misuse and abuse o Never sell or share prescription opioids. o Never use another person???s prescription opioids. ??? Store prescription opioids in a secure place and out of reach of others (this may include visitors, children, friends, and family). ??? Safely dispose of unused prescription opioids: Find your community drug take-back program or your pharmacy mail-back program, or flush them down the toilet, following guidance from the Food and Drug Administration (www.fda.gov/Drugs/ResourcesForYou). ??? Visit www.cdc.gov/drugoverdose to learn about the risks of opioids abuse and overdose. ??? If you believe you may be struggling with addiction, tell you (more content not included)...[facility] Medicine Office/Clinic Noteon [id number] Medicine Office/Clinic NoteFabaystate mary lane [facility] Medicine Office/Clinic Note Chief Complaint abdominal pain/pressure HPI Staff 40 year old female presents with concerns of bladder infection. Pt has sharp pains, pressure, nausea, sweats. Pt. also states that she does not having the burning with urination but does have the frequency. Did take some leftover keflex (1000 mg x1 dose yesterday) OTC ibuprofen and Tylenol Onset 2 days History of Present Illness I have reviewed and verified the staff HPI to be accurate for this encounter. Portions of this record have been created with voice recognition software. Occasional wrong-word or???[id number]??? substitutions may have occurred due to the inherent limitations of voice recognition software. 40-year-old morbidly obese female presents with concern for signs of UTI. Patient states she has had sharp pains, pressure, nausea and sweats for last 2 days. Patient states she was at a dinner with her family and had to leave due to not feeling well. Patient states she went to her car and broke out in a sweat. Patient does report frequency of urination and has had history of stress incontinence after childbirth but she has been urinating even when she is not coughing laughing or sneezing. Denies any burning with urination. Patient states due to her symptoms she did take two 500 mg Keflex yesterday that she had leftover. She was open to get into her primary care today but cannot. Patient is sexually active and her most recent sexual activity was a few weeks ago with a new partner. Patient denies any unusual vaginal odor or discharge. Discussed with patient doing urine culture as well as STI testing and patient was agreeable. Patient states she does get yeast infections easily and would like medication for that if she is put on antibiotics. Patient also reports having some low back pain but she attributes that to doing a lot of interstate driving recently. Patient denies any flank pain or blood in her urine. Review of Systems ROS negative unless otherwise stated in HPI. Physical Exam Vitals & Measurements T: 36.8 ???C(Temporal Artery) HR: 75(Peripheral) RR: 18 BP: 140/88 SpO2: 98% HT: 162 cm HT: 64 in WT: 315.261 lb WT: 143 kg BMI: 54.49 General: Well developed, well nourished, in no acute distress Eyes: not assessed Ears: not assessed Nose: not addressed Mouth: not assessed Neck: not assessed Lungs: clear to auscultation throughout, no wheezing, no rales. No respiratory distress Cardio: regular rate and rhythm, no murmur Abdomen: obese soft, nondistended, BS normal and active x4. + suprapubic tenderness. Some guarding and grimacing with RLQ + heel jar Musculoskeletal: No CVA tenderness Extremity: not assessed Neurologic: not assessed Skin: No rashes, ulcerations, or suspicious lesions Mental Status: Alert and oriented x3. Normal mood and affect Assessment/Plan Urinalysis with only trace leukocytes which may be affected by her taking 1000 mg of Keflex yesterday. Will send urine for culture. Discussed with patient STI testing that if she has STI may result in abdominal pain. She has had recent new partner. Patient is agreeable also to STI testing. Discussed with patient that since she is having increased in RLQ pain at end of visit we should send her to the ER as she needs higher level of care for her workup. Patient is agreeable and declines offer for ambulance transport. Time spent on exam, POC testing, and decision to send to ER due to increase level of pain before discharge was 30 min. Report was called to ER at [facility]. 1. Frequent urination (R35.0: Frequency of micturition) keflex 500 mg PO BID x 5 days. Urine culture sent. Will call with results when available. Ordered: cephalexin, 500 mg = 1 cap(s), Oral, BID, X 5 day(s), # 10 cap(s), Refills(s) 0, Pharmacy: [facility], 162, cm, 06/07/25 12:36:00 EDT, Height/Length Dosing, 143, kg, 06/07/25 12:36:00EDT, Weight Dosing fluconazole, 150 mg = 1 tab(s), Oral, Once, Take one tablet at first sign of symptoms, repeat in 3 days if needed if symptoms persist, # 2 tab(s), Refills(s) 0, Pharmacy: [facility], 162, cm, 06/07/25 12:36:00 EDT, Height/Length Dosing, 143, kg,... Chlam/GC/Trich,STEPHANIE Urine Culture Urnls Dip Stick Auto w/o Microscopy POC 06398 Vaginitis/Vaginosis, DNA Probe 2. Pelvic pain in female (R10.2: Pelvic and perineal pain) Sent to ER for further evaluation and management. Pelvic pain vs abdominal pain will need further evaluation. Ordered: cephalexin, 500 mg = 1 cap(s), Oral, BID, X 5 day(s), # 10 cap(s), Refills(s) 0, Pharmacy: [facility], 162, cm, 06/07/25 12:36:00 EDT, Height/Length Dosing, 143, kg, 06/07/25 12:36:00EDT, Weight Dosing fluconazole, 150 mg = 1 tab(s), Oral, Once, Take one tablet at first sign of symptoms, repeat in 3 days if needed if symptoms persist, # 2 tab(s), Refills(s) 0, Pharmacy: [facility], 162, cm, 06/07/25 12:36:00 EDT, Height/Length Dosing, 143, kg,... (more content not included)...NormalOhio[facility] Southeastern Medical CenterComment on above:Result Comment: Electronically Signed By: Grace BARRY, Heydi\.br\Date and Time Signed: 06/07/25 17:33 EDTHep Fun Panel on [id number] [Mass/Vol]4.1 g/dLNormal3.3-5.0[facility] Comment on above:Performed By: #### [id number] #### [facility] [address] [place] [id number]/Globulin [Mass ratio]1.4 {ratio}Normal1.1-2.2FSt. Mary's Medical CenterComment on above:Performed By: #### [id number] #### [facility] [address], [place] [address]Lgg Phos69 Int._Unit/YBkqztn14-21IcczpbOhiohealth Southeastern Medical Center Comment on above:Performed By: #### [id number] #### [facility] [address] [place] [id number] Int._Unit/LNormal6-46[facility] CenterComment on above:Performed By: #### [id number] #### [facility] [address], [place] [address]GCV39 Int._Unit/LNormal5-43[facility] CenterComment on above:Performed By: #### [id number] #### [facility] [address], [place] [address]Kxuq Direct0.0 mg/dLNormal0.0-0.4FSt. Mary's Medical Center Comment on above:Performed By: #### [id number] #### [facility] [address], [place] [address]Vebg Indirect0.4 mg/dLNormal0.1-0.9[facility] Comment on above:Performed By: #### [id number] #### [facility] [address], [place] [address]Slak Total0.4 mg/dLNormal0.0-1.1FSt. Mary's Medical Center Comment on above:Performed By: #### [id number] #### [facility] [address], [place] [address]Fqkmphji (S) [Mass/Vol]3.0 g/dLNormal1.4-4.0[facility] CenterComment on above:Performed By: #### [id number] #### [facility] [address] [place] [address]Rnohsyw [Mass/Vol]7.1 g/dLNormal6.0-7.8[facility] Medical CenterComment on above:Performed By: #### [id number] #### [facility] [address] [place] [address]Dyhine Levelon [id number] Lvl13 unit/KAqydsu85-70EvvybzOhiohealth Southeastern Medical CenterComment on above:Performed By: #### [id number] #### [facility] [address] [place] [address]T BetaHcg Qualon 06-07-2025U beta hCG QlNegativeNormalOhiohealth Southeastern Medical CenterComment on above:Performed By: #### [id number] #### [facility] [address] [place] [id number] Pelvis Non-OB Completeon [id number] Pelvis Non-OB Complete Exam Date/Time: 06/07/2025 16:54 EDT Reason for Exam: r/o ovarian torsion;Other (please specify) Report IMPRESSION: APPROXIMATELY 1.7 CM SIMPLE RIGHT OVARIAN CYST. OTHERWISE, NEGATIVE ULTRASOUND OF THE PELVIS. EXAM: US Pelvis Non-OB Complete DATE: 06/07/2025 4:50 PM CLINICAL HISTORY: r/o ovarian torsion. Technologist Comments: Pt c/o lower ab pain, worse on right, x 2 days. UTI symptoms, had CT today also. COMPARISON: CT abdomen and pelvis from earlier 06/07/2025. TECHNIQUE: Transabdominal ultrasound was performed of the pelvis. FINDINGS: The study is mild to moderately limited by the patient's body habitus. The uterus is anteverted and mildly anteflexed in position, and otherwise unremarkable in appearance. Both ovaries appear within normal limits for the patient's age group, with an approximately 1.7 x 1.6 x 1.5 cm simple cyst within the right ovary. Equivalent blood flow is noted to both ovaries on Doppler analysis. There is no significant free fluid, abnormal adnexal masses, or other findings of concern identified. The uterine measurements and estimated volume: Uterus Length: 12.4 cm Uterus Width: 5.6 cm Uterus Height: 4.7 cm Uterus Volume: 170.6 cm3 Endometrium Thickness: 0.6 cm The right ovary measurements and estimated volume: Right Ovary Length: 3.2 cm Right Ovary Width: 3.2 cm Right Ovary Height: 2.4 cm Right Ovary Volume: 12.8 cm3 Report The left ovary measurements and an estimated volume are: Left Ovary Length: 1.9 cm Left Ovary Width: 2.2 cm Left Ovary Height: 1.4 cm Left Ovary Volume: 3.0 cm3 Ordering Provider: Cameron Brar FINAL REPORT Dictated: 06/07/2025 5:11 pm Leonel Garibay MD Signed (Electronic Signature): 06/07/2025 5:11 pm Signed by: Leonel Garibay MD Transcribed by: MELECIO Technologist: BridgetOhiohealth Southeastern Medical CentereGFRon [id number] mL/min/1.73 i0Ljsdni>=59Ohiohealth Southeastern Medical CenterComment on above:Performed By: #### [id number] #### [facility] [address], [place] [address]Tumwdcpvra referral to Cardiac Electrophysiologyon 12-06-2024 [facility] [address] [place] [id number] [id number] Coag (Bld) [Time]23.3 sLow23.9-33.8Bon [facility] CampusComment on above: IV Heparin Therapy Range: 62.0-94.0 Result Comment: IV Heparin Therapy Range: 62.0-94.0Performed By: #### CDP, PTT, PT, BHCG, TSH #### [facility] [address] [address] Intelligence Manager: Alexander Echevarria MD #### FT4, GLYHGB #### [facility] [address] [place] [address] Intelligence Manager: Kendrick Alegre MDInterpretation and review of laboratory results AbnormalBon [facility] South CampusBon [facility] South CampusCBC with Auto Differentialon [id number] (Bld) [#/Vol]0.06 10*3/uLBon Secours Mary Immaculate HospitalBasophils/100 WBC (Bld)1 %0 - 2 %[facility] HospitalEosinophils (Bld) [#/Vol]0.29 10*3/uLBon Secours Mary Immaculate HospitalEosinophils/100 WBC (Bld)3 %0 - 5 % [facility] HospitalErythrocyte distribution width (RBC) [Ratio]12.9 %12.1 - 15.2 %[facility] HospitalHematocrit (Bld) [Volume fraction]36.1 %36.0 - 46.0 %[facility] HospitalHemoglobin (Bld) [Mass/Vol]12.4 g/dL12.0 - 16.0 g/dLBon [facility] CampusImmature granulocytes (Bld) [#/Vol]0.02 10*3/uLBon [facility] Hospitalmature granulocytes/100 WBC (Bld)0 %0 - 5 %[facility] HospitalInterpretation and review of laboratory resultsAbnormalBon Secours Mary Immaculate HospitalLymphocytes/100 WBC (Bld)36 %15 - 40 %[facility] Lymphocytes/100 WBC (Bld)3.60 %[facility] HospitalH (RBC) [Entitic mass] 27.3 pg26.0 - 34.0 pgSentara Obici HospitalHC (RBC) [Mass/Vol]34.3 g/dL31.0 - 37.0 g/dLBon [facility] CampusMCV (RBC) [Entitic vol]79.5 fLLow80.0 - 100.0 fLBon [facility] CampusMonocytes/100 WBC (Bld)7 %4 - 8 %Bon [facility] CampusMonocytes/100 WBC (Bld)0.69 %Bon [facility] CampusNeutrophils/100 WBC (Bld)53 %47 - 75 %Bon [facility] CampusPlatelet mean volume (Bld) [Entitic vol]9.8 fL6.0 - 12.0 fLBon [facility] HealthPlatelets (Bld) [#/Vol]302 10*3/uLBon SecParkview HealthRBC (Bld) [#/Vol]4.54 10*6/uL4.00 - 5.20 m/uLBon Secours Mary Immaculate HospitalSegmented neutrophils/100 WBC (Bld)5.29 %Bon [facility] CampusWBC other (Bld) [#/Vol]10.0Bon [facility] Centerours [facility] CudahyCBC with Diffon [id number]. Basophil0.06 k/uLNormal0.00-0.20[facility] Luther[facility] HospitalComment on above:Performed By: #### CDP, PTT, PT, BHCG, TSH #### [facility] [address] [place] [address] Intelligence Manager: Alexander Echevarria MD #### RACIEL GLYHGB #### [employer] [address] [place], [place] [phone] Intelligence Manager: Marian Mills.Imm.Granulocyte0.02 k/uLNormal0.00-0.30[facility] Luther[facility] HospitalComment on above:Performed By: #### CDP, PTT, PT, BHCG, TSH #### [facility] [address] [place] [address] Intelligence Manager: Alexander Echevarria MD #### RACIEL, GLYHGB #### [facility] [employer] [address] [place] [address] [phone] Intelligence Manager: Marian Mills.Neutrophil (Seg)5.29 k/uLNormal2.5-7.0[facility] Luther[facility] HospitalComment on above:Performed By: #### CDP, PTT, PT, BHCG, TSH #### [facility] [address] [place] [address] Intelligence Manager: Alexander Echevarria MD #### FT4, GLYHGB #### [address] [address] Intelligence Manager: Kendrick Alegre MDBasophils/100 WBC (Bld)1 %Normal0-2MHolzer Health SystemComment on above:Performed By: #### CDP, PTT, PT, BHCG, TSH #### [facility] [address] [place] [address] Intelligence Manager: Alexander Echevarria MD #### FTKevin, GLYHGB #### [place] [address] Intelligence Manager: Kendrick Alegre MDEosinophils (Bld) [#/Vol]0.29 10*3/uLNormal 0.00-0.40[facility] Luther[facility] HospitalComment on above:Performed By: #### CDP, PTT, PT, BHCG, TSH #### [facility] [address] [place] [phone] Intelligence Manager: Alexander Echevarria MD #### FT4, GLYHGB #### [place] [address] Intelligence Manager: Kendrick Alegre MDEosinophils/100 WBC (Bld)3 %Normal0-5[facility] HospitalComment on above:Performed By: #### CDP, PTT, PT, BHCG, TSH #### [facility] [address] [place] [phone] Intelligence Manager: Alexander Echevarria MD #### FT4, GLYHGB #### [address] [phone] Intelligence Manager: Kendrick Alegre MDErythrocyte distribution width (RBC) [Ratio]12.9 %Byuxcr55.1-15.2MUC Medical Centerment on above:Performed By: #### CDP, PTT, PT, BHCG, TSH #### [facility] [address] [place] [phone] Intelligence Manager: Alexander Echevarria MD #### FT4, GLYHGB #### [place] [phone] Intelligence Manager: Kendrick Alegre MDHematocrit (Bld) [Volume fraction]36.1 %Normal 36.0-46.0[facility] Luther[facility] HospitalComment on above:Performed By: #### CDP, PTT, PT, BHCG, TSH #### [facility] [address] [place] [phone] Intelligence Manager: Alexander Echevarria MD #### FT4, GLYHGB #### [place] [address] Intelligence Manager: Kendrick Alegre MDHemoglobin (Bld) [Mass/Vol]12.4 g/dLNormal 12.0-16.0[facility] on above:Performed By: #### CDP, PTT, PT, BHCG, TSH #### [facility] [address] [place] [address] Intelligence Manager: Alexander Echevarria MD #### FT4, GLYHGB #### [address] [phone] Intelligence Manager: Kendrick Alegre MDImmature granulocytes/100 WBC (Bld)0 %Normal0-5 [facility]asi HospitalComment on above:Performed By: #### CDP, PTT, PT, BHCG, TSH #### [facility] [address] [place] [address] Intelligence Manager: Alexander Echevarria MD #### FT4, GLYHGB #### [address] [address] Intelligence Manager: Kendrick Alegre MDLymphocytes (Bld) [#/Vol]3.60 10*3/uLNormal 1.00-4.80[facility] HospitalComment on above:Performed By: #### CDP, PTT, PT, BHCG, TSH #### [facility] [address] [place] [address] Intelligence Manager: Alexander Echevarria MD #### FT4, GLYHGB #### [address] [address] Intelligence Manager: Kendrick Alegre MDLymphocytes/100 WBC (Bld)36 %Rclhws64-37MtxqvCleveland Clinic Lutheran HospitalComment on above:Performed By: #### CDP, PTT, PT, BHCG, TSH #### [facility] [address] [place] [address] Intelligence Manager: Alexander Echevarria MD #### FT4, GLYHGB #### [address] [address] Intelligence Manager: DAVID MillsCH (RBC) [Entitic mass]27.3 noIiwzew32.0-34.0 [facility] HospitalComment on above:Performed By: #### CDP, PTT, PT, BHCG, TSH #### [facility] [address] [place], [place] [phone] ([phone] Intelligence Manager: Alexander Echevarria MD #### FT4, GLYHGB #### [address] [phone] Intelligence Manager: DAVID MillsCHC (RBC) [Mass/Vol]34.3 g/pFKpansf34.0-37.0 [facility] HospitalComment on above:Performed By: #### CDP, PTT, PT, BHCG, TSH #### [facility] [address] [place] [phone] ( Intelligence Manager: Alexander Echevarria MD #### FT4, GLYHGB #### [place] [phone] Intelligence Manager: DAVID MillsCV (RBC) [Entitic vol]79.5 fLLow80.0-100.0[facility] HospitalComment on above:Performed By: #### CDP, PTT, PT, BHCG, TSH #### [facility] [address] [place] [address] Intelligence Manager: Alexander Echevarria MD #### FT4, GLYHGB #### [place] [address] Intelligence Manager: Kendrick Alegre MDMonocytes (Bld) [#/Vol]0.69 10*3/uLNormal 0.00-1.00[facility] HospitalComment on above:Performed By: #### CDP, PTT, PT, BHCG, TSH #### [facility] [address] [place] [phone] Intelligence Manager: Alexander Echevarria MD #### FT4, GLYHGB #### [place] [phone] Intelligence Manager: Kendrick Alegre MDMonocytes/100 WBC (Bld)7 %Normal4-8[facility] HospitalComment on above:Performed By: #### CDP, PTT, PT, BHCG, TSH #### [facility] [address] [place] [phone] Intelligence Manager: Alexander Echevraria MD #### FT4, GLYHGB #### [facility] [address] [place], [place] [phone] Intelligence Manager: Girish Millsophil (Seg)53 %Yjuciu85-45JgwxtMetroHealth [facility] Heights Medical Center on above:Performed By: #### CDP, PTT, PT, BHCG, TSH #### [facility] [address] [place] [address] Intelligence Manager: Alexander Echevarria MD #### FT4, GLYHGB #### [place] [id number] [place] [phone] Intelligence Manager: Tanika Mills mean volume (Bld) [Entitic vol]9.8 fL Normal6.0-12.0[facility] on above:Performed By: #### CDP, PTT, PT, BHCG, TSH #### [facility] [address] [place], [place] [phone] Intelligence Manager: Alexander Echevarria MD #### FT4, GLYHGB #### [place] [address] Intelligence Manager: Inga Mills (Bld) [#/Vol]302 10*3/tXPuhbau785-062 [facility] on above:Performed By: #### CDP, PTT, PT, BHCG, TSH #### [facility] [address] [place], [place] [phone] Intelligence Manager: Alexander Echevarria MD #### FT4, GLYHGB #### [address] [address] Intelligence Manager: Kendrick Alegre MDRBC (Bld) [#/Vol]4.54 10*6/uLNormal4.00-5.20 [facility] HospitalComment on above:Performed By: #### CDP, PTT, PT, BHCG, TSH #### [facility] [address] [place] [address] Intelligence Manager: Alexander Echevarria MD #### FT4, GLYHGB #### [address] [address] Intelligence Manager: Kendrick Alegre MDHUDSON RIVER STATE HOSPITAL (d) [#/Vol]10.0 10*3/uLNormal3.5-11.0[facility] HospitalComment on above:Performed By: #### CDP, PTT, PT, BHCG, TSH #### [facility] [address] [place] [address] Intelligence Manager: Alexander Echevarria MD #### FT4, GLYHGB #### [address] [address] Intelligence Manager: CAMPOS Millsuintah basin medical center Metabolic Profon [id number] [Mass/Vol]3.9 g/dLNormal3.5-5.2[facility] HospitalComment on above:Performed By: #### PHEP #### [address] [address] Intelligence Manager: Kendrick Alegre MD #### CP #### [facility] [address] [place] [address] Intelligence Manager: Silvia Alstonline Phos71 U/ZNlnydt23-023TeaoxCleveland Clinic Lutheran HospitalComment on above:Performed By: #### PHEP #### [address] [address] Intelligence Manager: Kendrick Alegre MD #### CP #### [facility] [address] [place] [address] Intelligence Manager: LUCY Alston [Catalytic activity/Vol]16 U/LNormal5-33Mer Kasi HospitalComment on above:Performed By: #### PHEP #### [facility] [address] [place] [address] Intelligence Manager: Kendrick Alegre MD #### CP #### [facility] [address] [place] [address] Intelligence Manager: Angela Alston gap [Moles/Vol]10 mmol/LNormal9-17[facility] HospitalComment on above:Performed By: #### PHEP #### [facility] [address] [place] [address] Intelligence Manager: Kendrick Alegre MD #### CP #### [facility] [address] [place] [address] Intelligence Manager: Alexander Echevarria MDAST [Catalytic activity/Vol]15 U/LNormal<32[facility] HospitalComment on above:Performed By: #### PHEP #### [facility] [address] [place] [address] Intelligence Manager: Kendrick Alegre MD #### CP #### [facility] [address] [place] [address] Intelligence Manager: Alexander Echevarria MDBilirubin [Mass/Vol]0.3 mg/dLNormal0.3-1.2[facility] HospitalComment on above:Performed By: #### PHEP #### [facility] [address] [place] [address] Intelligence Manager: Kendrick Alegre MD #### CP #### [facility] [address] [place] [address] Intelligence Manager: Alexander Echevarria MDBUN/CRE Wbfsl69Woty4-61GomqkCleveland Clinic Lutheran Hospital Comment on above:Performed By: #### PHEP #### [facility] [address] [place] [address] Intelligence Manager: Kendrick Alegre MD #### CP #### [facility] [address] [place], [place] [phone] Intelligence Manager: CAMPOS Alstonalcium [Mass/Vol]8.9 mg/dLNormal8.6-10.4[facility] HospitalComment on above:Performed By: #### PHEP #### [facility] [address] [place] [address] Intelligence Manager: Kendrick Alegre MD #### CP #### [facility] [address] [place], [place] [id number] Intelligence Manager: CAMPOS Alstonhloride [Moles/Vol]102 mmol/QNpmhfc44-262GgzvdCleveland Clinic Lutheran HospitalComment on above:Performed By: #### PHEP #### [address] [address] Intelligence Manager: Kendrick Alegre MD #### CP #### [facility] [address] [place], [place] [phone] Intelligence Manager: CAMPOS AlstonO2 [Moles/Vol]23 mmol/YIsfqtp73-66XkvovCleveland Clinic Lutheran HospitalComment on above:Performed By: #### PHEP #### [address] [address] Intelligence Manager: Kendrick Alegre MD #### CP #### [facility] [address] [place], [place] [phone] Intelligence Manager: CAMPOS Alstonreatinine [Mass/Vol]0.6 mg/dLNormal0.5-0.9[facility] HospitalComment on above:Performed By: #### PHEP #### [address] [address] Intelligence Manager: Kendrick Alegre MD #### CP #### [facility] [address] [place] [address] Intelligence Manager: Alexander Echevarria MDGFR/1.73 sq M.predicted among non-blacks MDRD (S/P/Bld) [Vol rate/Area]mL/min/{1.73_m2}Normal>60MerRichmond University Medical CenterComment on above:Result Comment: These results are not intended for [...] or following therapy that affects renal tubular secretion.Performed By: #### PHEP #### [address] [phone] Intelligence Manager: Kendrick Alegre MD #### CP #### [facility] [address] [place] [phone] Intelligence Manager: Alexander Echevarria MDGlucose [Mass/Vol]92 mg/pVGknuli04-10DocfyHolzer Health SystemComment on above:Performed By: #### PHEP #### [address] [address] Intelligence Manager: Kendrick Alegre MD #### CP #### [facility] [address] [place] [phone] Intelligence Manager: TRAE Alstonotassium [Moles/Vol]3.8 mmol/LNormal3.7-5.3MHolzer Health SystemComment on above:Performed By: #### PHEP #### [address] [phone] Intelligence Manager: Kendrick Alegre MD #### CP #### [facility] [address] [place] [phone] Intelligence Manager: TRAE Alstonrotein [Mass/Vol]7.2 g/dLNormal6.4-8.3MHolzer Health SystemComment on above:Performed By: #### PHEP #### [facility] [employer] [address] [place] [address] Intelligence Manager: Kendrick Alegre MD #### CP #### [facility] [address] [place], [place] [phone] Intelligence Manager: JA Alstonodium [Moles/Vol]135 mmol/IVlqpqk320-934IffahCleveland Clinic Lutheran HospitalComment on above:Performed By: #### PHEP #### [facility] [address] [place] [address] Intelligence Manager: Kendrick Alegre MD #### CP #### [facility] [address] [place], [place] [phone] Intelligence Manager: Alexander Echevarria MDUrea nitrogen [Mass/Vol]15 mg/dLNormal6-20[facility] HospitalComment on above:Performed By: #### PHEP #### [facility] [employer] [address] [place] [address] Intelligence Manager: Kendrick Alegre MD #### CP #### [facility] [address] [place], [place] [phone] Intelligence Manager: CAMPOS Alstonomprehensive Metabolic Panelon [id number] [Mass/Vol]3.9 g/dL3.5 - 5.2 g/dLBon SecWomen[facility] HealthALP [Catalytic activity/Vol]71 U/L35 - 104 U/LBon [facility] HealthALT [Catalytic activity/Vol]16 U/L5 - 33 U/LBon [facility] HealthAnion gap [Moles/Vol]10 mmol/L9 - 17 mmol/LBon [facility] HealthAST [Catalytic activity/Vol]15 U/L NINF - 32 U/LBon [facility] HealthBilirubin [Mass/Vol]0.3 mg/dL0.3 - 1.2 mg/dLBon [facility] CampusCalcium [Mass/Vol]8.9 mg/dL8.6 - 10.4 mg/dLBon [facility] CampusChloride [Moles/Vol]102 mmol/L98 - 107 mmol/LBon [facility] CampusCO2 [Moles/Vol]23 mmol/L20 - 31 mmol/LBon [facility] Creatinine [Mass/Vol]0.6 mg/dL0.5 - 0.9 mg/dLBon [facility] CampusEst, Glom Filt Rate- PINFBon [facility] CampusComment on above: These results are not intended [...] therapy that affects renal tubular secretion. Glucose [Mass/Vol]92 mg/dL70 - 99 mg/dLBon [facility] CampusInterpretation and review of laboratory resultsAbnormalBon Secours Mary Immaculate HospitalPotassium [Moles/Vol]3.8 mmol/L3.7 - 5.3 mmol/LBon [facility] CampusProtein [Mass/Vol] 7.2 g/dL6.4 - 8.3 g/dLBon [facility] South CampusSodium [Moles/Vol]135 mmol/L135 - 144 mmol/LBon [facility] CampusUrea nitrogen [Mass/Vol]15 mg/dL6 - 20 mg/dL [facility] Immaculate HospitalUrea nitrogen/Creatinine [Mass ratio]25 mg/mgHigh9 - 20 [facility] HospitalHCG, Quanton [id number], Quant<1.0Normal<5[facility] HospitalComment on above:Result Comment: Non-preg premeno <=5 Postmeno <=8 Male <=3 If HCG results do not concur with clinical observations, additional testing to confirm results is recommended.Performed By: #### CDP, PTT, PT, BHCG, TSH #### [facility] [address] [place] [address] Intelligence Manager: Alexander Echevarria MD #### FT4, GLYHGB #### [employer] [address] [place] [address] Intelligence Manager: Kendrick Alegre MDHCG, Quantitative, Pregnancyon 11-01-2024 HCG.beta subunit QnNINFBon Secours Mary Immaculate HospitalComment on above: Non-preg premeno <=5 Postmeno <=8 Male <=3 If HCG results do not concur with clinical observations, additional testing to confirm results is recommended. [facility] Immaculate HospitalHemoglobin A1Con 56-16-0532Uqsbddr glucose Estimated from glycated hemoglobin (Bld) [Mass/Vol]105 mg/dLBon [facility] Comment on above:The ADA and AACC recommend providing the estimated average glucose result to permit better patient understanding of their HBA1c result. HbA1c (Bld) [Mass fraction]5.3 %4.0 - 6.0 %[facility] HospitalGlucose [Mass/Vol]105 mg/dLNormalCleveland Clinic Lutheran HospitalComment on above:Result Comment: The ADA and AACC recommend providing the estimated average glucose result to permit better patient understanding of their HBA1c result.Performed By: #### CDP, PTT, PT, BHCG, TSH #### [facility] [address] [place] [address] Intelligence Manager: Alexander Echevarria MD #### FT4, GLYHGB #### [employer] [address] [place], [place] [phone] Intelligence Manager: Kendrick Alegre MDHbA1c (Bld) [Mass fraction]5.3 %Normal4.0-6.0 [facility] HospitalComment on above:Performed By: #### CDP, PTT, PT, BHCG, TSH #### [facility] [address] [place] [address] Intelligence Manager: Alexander Echevarria MD #### FT4, GLYHGB #### [place] [id number] [place] [address] Intelligence Manager: Fouzia MillsNovant Health Medical Park Hospital [id number] A Ab,IgM Non-ReactiveOhioHealth Southeastern Medical CenterComment on above:Performed By: #### PHEP #### [address] [address] Intelligence Manager: Kendrick Alegre MD #### CP #### [facility] [address] [place] [address] Intelligence Manager: Jennifer Alston B Core Ab,IgMNon-ReactiveOhioHealth Southeastern Medical CenterComment on above:Performed By: #### PHEP #### [address] [address] Intelligence Manager: Kendrick Alegre MD #### CP #### [facility] [address] [place] [address] Intelligence Manager: Jennifer Alston B Surf AgNon-ReactiveOhioHealth Southeastern Medical CenterComment on above:Performed By: #### PHEP #### [address] [address] Intelligence Manager: Kendrick Alegre MD #### CP #### [facility] [address] [place] [address] Intelligence Manager: Jennifer Alston C AbNon-ReactiveOhioHealth Southeastern Medical Center Comment on above:Result Comment: The hepatitis C procedure used in our laboratory is a Chemiluminescent test specific for three recombinant HCV antigens. A negative anti-HCV result indicates that the antibodies to hepatitis C virus are not present at this time. Individuals with reactive anti-HCV should be considered infected and infectious until proven otherwise. Confirmation of all equivocal or reactive results is recommended by ordering HCV RNA by PCR.Performed By: #### PHEP #### [address] [address] Intelligence Manager: Kendrick Alegre MD #### CP #### [facility] [address] [place] [address] Intelligence Manager: Alexander Echevarria MDHepatitis Panel, [facility] [id number] IgM IA Ql Non-ReactiveNONREACTIVEMary Washington HealthcareV core IgM IA QlNon-Reactive NONREACTIVEMary Washington HealthcareV surface Ag IA QlNon-ReactiveNONREACTIVE [facility] HospitalHCV Ab IA QlNon-ReactiveNONREACTIVEBath Community Hospital on above: The hepatitis C procedure used in our laboratory is a Chemiluminescent test specific for three recombinant HCV antigens. A negative anti-HCV result indicates that the antibodies to hepatitis C virus are not present at this time. Individuals with reactive anti-HCV should be considered infected and infectious until proven otherwise. Confirmation of all equivocal or reactive results is recommended by ordering HCV RNA by PCR. [facility] [id number] Coag (PPP) [Relative time]1.0 {INR} NormalBath Community Hospital on above: Therapeutic Range: Moderate Anticoagulant Intensity: INR = 2.0-3.0 High Anticoagulant Intensity: INR = 2.5-3.5 Result Comment: Therapeutic Range: Moderate Anticoagulant Intensity: INR = 2.0-3.0 High Anticoagulant Intensity: INR = 2.5-3.5Performed By: #### CDP, PTT, PT, BHCG, TSH #### [facility] [address] [place] [address] Intelligence Manager: Alexander Echevarria MD #### FT4, GLYHGB #### [address] [address] Intelligence Manager: SENG Mills Coag (PPP) [Time]12.8 wWdpyty54.5-14.2Bon [facility] on above:Performed By: #### CDP, PTT, PT, BHCG, TSH #### [facility] [address] [place] [phone] Intelligence Manager: Alexander Echevarria MD #### FT4, GLYHGB #### [address] [address] Intelligence Manager: TRAE Millsrotime-INRon [id number] [facility] T4, Freeon 89-65-7742Lngm T4 [Mass/Vol]1.1 ng/dL0.92 - 1.68 ng/dLBon Deuel County Memorial HospitalTSHon [id number] Qn2.48 m[IU]/LBon Deuel County Memorial HospitalThyroid Stim. Horm.on 11-01-2024 Thyroid Stim. Horm.2.48 uIU/mLNormal0.30-5.00[facility] Luther[facility] HospitalComment on above:Performed By: #### CDP, PTT, PT, BHCG, TSH #### [facility] [address] [phone] Intelligence Manager: Alexander Echevarria MD #### FT4, GLYHGB #### [place] [phone] Intelligence Manager: Kendrick Alegre MDThyroxine, [facility] [id number], Free1.1 ng/dLNormal0.92-1.68C[facility] Lutheran HospitalComment on above:Performed By: #### CDP, PTT, PT, BHCG, TSH #### [facility] [address] [facility] [address] [place] [id number] Intelligence Manager: Alexander Echevarria MD #### FT4, GLYHGB #### [address] [address] Intelligence Manager: Kendrick Alegre MDIGP,APTIMA HPV,AGE GDLNon [id number] GDLN ACOG TESTINGNote.NOMS HealthcareComment on above:TESTS RESULT FLAG UNITS REF RANGE LAB Clinician Provided Cytology Information Source.............Cervix No. of containers..01 ThinPrep Vial Age Robert ELMORE Aleksandra... 3065 FLAG LEGEND: L-Low Normal,H-High Normal,LL-Alert Low,HH-Alert High <-Panic Low,>-Panic High,A-Abnormal,AA-Critical Abnormal Performed at: 01 =G [address] [address] Margot Franco MD, HPV APTIMAPositiveAbnormalNegativeNOMS HealthcareComment on above:This nucleic acid amplification test detects fourteen high- risk HPV types (16,18,31,33,35,39,45,51,52,56,58,59,66,68) without differentiation. HPV GENOTYPE 16NegativeNegativeNOMS HealthcareHPV GENOTYPE 18,45NegativeNegative NOMS HealthcareComment on above:Performed at: = - [address] [id number] Intelligence Manager: Margot Franco MD, Phone: [phone] Performed at: [address] [id number] Intelligence Manager: Margot Franco MD, Phone: [phone] IGP, APTIMA HPV, RFX 16/18,45Note.NOMS HealthcareComment on above:TESTS RESULT FLAG UNITS REF RANGE LAB DIAGNOSIS: 02 NEGATIVE FOR INTRAEPITHELIAL LESION OR MALIGNANCY. Specimen adequacy: 02 Satisfactory for evaluation. Endocervical and/or squamous metaplastic cells (endocervical component) are present. Performed by: 02 Kaylynn Novoa, Electrification Adviser ([facility]) . 02 Note: Note 02 The Pap smear is a screening test designed to aid in the detection of premalignant and malignant conditions of the uterine cervix. It is not a diagnostic procedure and should not be used as the sole means of detecting cervical cancer. Both false-positive and false-negative reports do occur. Test Methodology: Note 02 This liquid based ThinPrep(R) pap test was screened with the use of an image guided system. HPV Genotype Reflex Note 02 Criteria met, see HPV Genotype results. FLAG LEGEND: L-Low Normal,H-High Normal,LL-Alert Low,HH-Alert High <-Panic Low,>-Panic High,A-Abnormal,AA-Critical Abnormal Performed at: 02 WB [facility] [address] [place] [address] Margot Franco MD, Interpretation and review of laboratory resultsAbAspirus Ontonagon Hospital BRUSH-SPATULA CERVIX CLINISYNCExcelsior [facility] with Auto Differentialon [id number] (Bld) [#/Vol]0.05 10*3/uLBon Secours Miami Valley HospitalBasophils/100 WBC (Bld)0 %0 - 2 %[facility] Hospitaly HealthEosinophils (Bld) [#/Vol]0.20 10*3/uLBon Secours Miami Valley HospitalEosinophils/100 WBC (Bld)1 %0 - 5 %[facility] HospitalErythrocyte distribution width (RBC) [Ratio]13.1 %12.1 - 15.2 %[facility] Hematocrit (Bld) [Volume fraction]43.0 %36.0 - 46.0 %[facility] Hemoglobin (Bld) [Mass/Vol]14.7 g/dL12.0 - 16.0 g/dLBon SecParkview Health Immature granulocytes (Bld) [#/Vol]0.03 10*3/uLBon Secours Miami Valley HospitalImmature granulocytes/100 WBC (Bld)0 %0 - 5 %[facility] HospitalInterpretation and review of laboratory resultsAbnormalBon [facility] CampusLymphocytes/100 WBC (Bld)31 %15 - 40 %[facility] HospitalLymphocytes/100 WBC (Bld)4.77 %[facility] HospitalH (RBC) [Entitic mass]28.1 pg26.0 - 34.0 pgBon Secours [facility]ome[facility] Memorial HospitalHC (RBC) [Mass/Vol]34.2 g/dL31.0 - 37.0 g/dLBon SecParkview HealthMCV (RBC) [Entitic vol]82.1 fL80.0 - 100.0 fLBon Secours Mary [facility] Hospital Monocytes/100 WBC (Bld)6 %4 - 8 %[facility] HospitalMonocytes/100 WBC (Bld) 0.90 %[facility] HospitalNeutrophils/100 WBC (Bld)62 %47 - 75 %[facility] HospitalPlatelet mean volume (Bld) [Entitic vol]10.3 fL6.0 - 12.0 fLBon Secours Miami Valley HospitalPlatelets (Bld) [#/Vol]388 10*3/uLBon [facility] RBC (Bld) [#/Vol]5.24 10*6/uLHigh4.00 - 5.20 m/uLBon [facility] Segmented neutrophils/100 WBC (Bld)9.24 %[facility] Anne HospitalWBC other (Bld) [#/Vol]15.2HChildren's Hospital [facility] with Diffon [id number]. Basophil0.05 k/uLNormal0.00-0.20[facility] Comment on above:Performed By: #### CDP, PTT, PT, BHCG, TSH #### [facility] [address] [place], [place] [id number] Intelligence Manager: Alexander Echevarria MD #### FTKevin, GLYHGB #### [place] [phone] Intelligence Manager: Marian Mills.Imm.Granulocyte0.03 k/uLNormal0.00-0.30[facility] Luther[facility] HospitalComment on above:Performed By: #### CDP, PTT, PT, BHCG, TSH #### [facility] [address] [phone] Intelligence Manager: Alexander Echevarria MD #### CRISTELA SCHRADERB #### [place] [phone] Intelligence Manager: Marian Mills.Neutrophil (Seg)9.24 k/uLHigh2.5-7.0C[facility] Luther[facility] HospitalComment on above:Performed By: #### CDP, PTT, PT, BHCG, TSH #### [facility] [address] [place] [address] Intelligence Manager: Alexander Echevarria MD #### FTKevin GLYHGB #### [place] [phone] Intelligence Manager: Kendrick Alegre MDBasophils/100 WBC (Bld)0 %Normal0-2MHolzer Health SystemComment on above:Performed By: #### CDP, PTT, PT, BHCG, TSH #### [facility] [address] [phone] ( Intelligence Manager: Alexander Echevarria MD #### FT4, GLYHGB #### [place] [phone] Intelligence Manager: Kendrick Alegre MDEosinophils (Bld) [#/Vol]0.20 10*3/uLNormal 0.00-0.40[facility] on above:Performed By: #### CDP, PTT, PT, BHCG, TSH #### [facility] [address] [place] [address] Intelligence Manager: Alexander Echevarria MD #### FT4, GLYHGB #### [place] [address] Intelligence Manager: Kendrick Alegre MDEosinophils/100 WBC (Bld)1 %Normal0-5[facility] on above:Performed By: #### CDP, PTT, PT, BHCG, TSH #### [facility] [address] [phone] ( Intelligence Manager: Alexander Echevarria MD #### FT4, GLYHGB #### [place] [phone] Intelligence Manager: Kendrick Alegre MDErythrocyte distribution width (RBC) [Ratio]13.1 %Jdxpwf64.1-15.2MTrumbull Memorial Hospital on above:Performed By: #### CDP, PTT, PT, BHCG, TSH #### [facility] [address] [phone] ( Intelligence Manager: Alexander Echevarria MD #### FT4, GLYHGB #### [place] [phone] Intelligence Manager: Kendrick Alegre MDHematocrit (Bld) [Volume fraction]43.0 %Normal 36.0-46.0[facility] Luther[facility] HospitalComkresge eye institute on above:Performed By: #### CDP, PTT, PT, BHCG, TSH #### [facility] [address] [phone] Intelligence Manager: Alexander Echevarria MD #### FT4, GLYHGB #### [place] [phone] Intelligence Manager: Kendrick Alegre MDHemoglobin (Bld) [Mass/Vol]14.7 g/dLNormal 12.0-16.0[facility] Luther[facility] HospitalComment on above:Performed By: #### CDP, PTT, PT, BHCG, TSH #### [facility] [address] [phone] Intelligence Manager: Alexander Echevarria MD #### FT4, GLYHGB #### [place] [phone] Intelligence Manager: Kendrick Alegre MDImmature granulocytes/100 WBC (Bld)0 %Normal0-5 [facility] on above:Performed By: #### CDP, PTT, PT, BHCG, TSH #### [facility] [address] [phone] Intelligence Manager: Alexander Echevarria MD #### FT4, GLYHGB #### [place] [phone] Intelligence Manager: Kendrick Alegre MDLymphocytes (Bld) [#/Vol]4.77 10*3/uLNormal 1.00-4.80[facility] on above:Performed By: #### CDP, PTT, PT, BHCG, TSH #### [facility] [address] [phone] Intelligence Manager: Alexander Echevarria MD #### FT4, GLYHGB #### [address] [phone] Intelligence Manager: Kendrick Alegre MDLymphocytes/100 WBC (Bld)31 %Vnqhyy75-28ZgjccCleveland Clinic Lutheran HospitalComment on above:Performed By: #### CDP, PTT, PT, BHCG, TSH #### [facility] [address] [place] [address] Intelligence Manager: Alexander Echevarria MD #### FT4, GLYHGB #### [place] [phone] Intelligence Manager: DAVID MillsCH (RBC) [Entitic mass]28.1 ynSwxtjx41.0-34.0 [facility] HospitalComment on above:Performed By: #### CDP, PTT, PT, BHCG, TSH #### [facility] [address] [phone] Intelligence Manager: Alexander Echevarria MD #### FT4, GLYHGB #### [place] [address] Intelligence Manager: PATRIC MillsC (RBC) [Mass/Vol]34.2 g/yYUffsrl96.0-37.0 [facility] Hospitalment on above:Performed By: #### CDP, PTT, PT, BHCG, TSH #### [facility] [address] [phone] Intelligence Manager: Alexander Echevarria MD #### FT4, GLYHGB #### [place] [address] Intelligence Manager: DAVID MillsCV (RBC) [Entitic vol]82.1 zUGrdycm37.0-100.0 [facility] Hospitalment on above:Performed By: #### CDP, PTT, PT, BHCG, TSH #### [facility] [address] [place] [address] ( Intelligence Manager: Alexander Echevarria MD #### FT4, GLYHGB #### [address] [address] Intelligence Manager: Kendrick Alegre MDMonocytes (Bld) [#/Vol]0.90 10*3/uLNormal 0.00-1.00[facility] on above:Performed By: #### CDP, PTT, PT, BHCG, TSH #### [facility] [address] [phone] ( Intelligence Manager: Alexander Echevarria MD #### FT4, GLYHGB #### [place] [address] Intelligence Manager: DAVID Millsonocytes/100 WBC (Bld)6 %Normal4-8[facility] on above:Performed By: #### CDP, PTT, PT, BHCG, TSH #### [facility] [address] [place] [address] Intelligence Manager: Alexander Echevarria MD #### FT4, GLYHGB #### [place] [phone] Intelligence Manager: eKndrick Alegre MDNeutrophil (Seg)62 %Eyiqmy12-61RvkvkMetroHealth [facility] Center on above:Performed By: #### CDP, PTT, PT, BHCG, TSH #### [facility] [address] [place] [phone] ( Intelligence Manager: Alexander Echevarria MD #### FT4, GLYHGB #### [address] [phone] Intelligence Manager: Kendrick Alegre MDPlatelet mean volume (Bld) [Entitic vol]10.3 fL Normal6.0-12.0[facility] on above:Performed By: #### CDP, PTT, PT, BHCG, TSH #### [facility] [address] [place], [place] [phone] Intelligence Manager: Alexander Echevarria MD #### FT4, GLYHGB #### [address] [phone] Intelligence Manager: Inga Mills ([facility]) [#/Vol]388 10*3/nIDyqdli554-106 [facility] HospitalComment on above:Performed By: #### CDP, PTT, PT, BHCG, TSH #### [facility] [address] [place] [address] Intelligence Manager: Alexander Echevarria MD #### FT4, GLYHGB #### [place] [address] Intelligence Manager: BRIA Mills ([facility]) [#/Vol]5.24 10*6/uLHigh4.00-5.20[facility] on above:Performed By: #### CDP, PTT, PT, BHCG, TSH #### [facility] [address] [phone] Intelligence Manager: Alexander Echevarria MD #### FT4, GLYHGB #### [address] [address] Intelligence Manager: Kendrick Alegre MDHUDSON RIVER STATE HOSPITAL (d) [#/Vol]15.2 10*3/uLHigh3.5-11.0[facility] on above:Performed By: #### CDP, PTT, PT, BHCG, TSH #### [facility] [address] [phone] Intelligence Manager: Alexander Echevarria MD #### FT4, GLYHGB #### [facility] [place], [place] [phone] Intelligence Manager: Sobia Mills Metabolic Profon 92-78-5838Ywzdvjh [Mass/Vol]4.9 g/dLNormal3.5-5.2MHolzer Health SystemComkresge eye institute on above:Performed By: #### CDP, PTT, PT, BHCG, TSH #### [facility] [address] [place] [address] Intelligence Manager: Alexander Echevarria MD #### FT4, GLYHGB #### [facility] [employer] [address] [place] [phone] Intelligence Manager: Ryder Mills Naob473 U/CCmpe04-229FlfpxCleveland Clinic Lutheran HospitalComkresge eye institute on above:Performed By: #### CDP, PTT, PT, BHCG, TSH #### [facility] [address] [place] [address] Intelligence Manager: Alexander Echevarria MD #### FT4, GLYHGB #### [facility] [employer] [address] [place] [phone] Intelligence Manager: Kendrick Alegre MDALT [Catalytic activity/Vol]85 U/LHigh5-33[facility] Luther[facility] HospitalComkresge eye institute on above:Performed By: #### CDP, PTT, PT, BHCG, TSH #### [facility] [address] [place] [address] Intelligence Manager: Alexander Echevarria MD #### FT4, GLYHGB #### [facility] [employer] [address] [place] [phone] Intelligence Manager: Angela Mills gap [Moles/Vol]19 mmol/LHigh9-17[facility] HospitalComkresge eye institute on above:Performed By: #### CDP, PTT, PT, BHCG, TSH #### [facility] [address] [place] [address] Intelligence Manager: Aelxander Echevarria MD #### FT4, GLYHGB #### [address] [phone] Intelligence Manager: Kendrick Alegre MDAST [Catalytic activity/Vol]110 U/LHigh<32[facility] Luther[facility] HospitalComment on above:Performed By: #### CDP, PTT, PT, BHCG, TSH #### [facility] [address] [place] [address] Intelligence Manager: Alexander Echevarria MD #### FT4, GLYHGB #### [place] [phone] Intelligence Manager: Kendrick Alegre MDBilirubin [Mass/Vol]0.2 mg/dLLow0.3-1.2MHolzer Health SystemComment on above:Performed By: #### CDP, PTT, PT, BHCG, TSH #### [facility] [address] [place] [address] Intelligence Manager: Alexander Echevarria MD #### FTKevin, GLYHGB #### [place] [phone] Intelligence Manager: Kendrick Alegre MDBUN/CRE Bxmwt67Ttxjze3-43[facility] Comment on above:Performed By: #### CDP, PTT, PT, BHCG, TSH #### [facility] [address] [place] [address] Intelligence Manager: Alexander Echevarria MD #### FT4, GLYHGB #### [address] [phone] Intelligence Manager: CAMPOS Millsalcium [Mass/Vol]9.8 mg/dLNormal8.6-10.4[facility] Luther[facility] HospitalComment on above:Performed By: #### CDP, PTT, PT, BHCG, TSH #### [facility] [address] [place], [place] [phone] Intelligence Manager: Alexander Echevarria MD #### FT4, GLYHGB #### [address] [phone] Intelligence Manager: CAMPOS Millshloride [Moles/Vol]98 mmol/HXqqzpn06-589BhthrCleveland Clinic Lutheran Hospitalment on above:Performed By: #### CDP, PTT, PT, BHCG, TSH #### [facility] [address] [place], [place] [phone] Intelligence Manager: Alexander Echevarria MD #### FT4, GLYHGB #### [address] [phone] Intelligence Manager: Kendrick Alegre MDCO2 [Moles/Vol]23 mmol/YSwywlm80-66AwyxnMetroHealth [facility] on above:Performed By: #### CDP, PTT, PT, BHCG, TSH #### [facility] [address] [place], [place] [phone] Intelligence Manager: Alexander Echevarria MD #### FT4, GLYHGB #### [address] [phone] Intelligence Manager: CAMPOS Millsreatinine [Mass/Vol]0.9 mg/dLNormal0.5-0.9[facility] on above:Performed By: #### CDP, PTT, PT, BHCG, TSH #### [facility] [address] [place], [place] [phone] Intelligence Manager: Alexander Echevarria MD #### FT4, GLYHGB #### [address] [phone] Intelligence Manager: Kendrick Alegre MDGFR/1.73 sq M.predicted among non-blacks MDRD (S/P/Bld) [Vol rate/Area]84 mL/min/{1.73_m2}Normal>60[facility] Comment on above:Result Comment: These results are not intended for [...] or following therapy that affects renal tubular secretion.Performed By: #### CDP, PTT, PT, BHCG, TSH #### [facility] [address] [place] [address] Intelligence Manager: Alexander Echevarria MD #### FT4, GLYHGB #### [address] [phone] Intelligence Manager: Kendrick Alegre MDGlucose [Mass/Vol]106 mg/bDLejj70-52ChktfHolzer Health SystemComment on above:Performed By: #### CDP, PTT, PT, BHCG, TSH #### [facility] [address] [place] [address] Intelligence Manager: Alexander Echevarria MD #### FT4, GLYHGB #### [address] [phone] Intelligence Manager: Kendrick Alegre MDPotassium [Moles/Vol]3.5 mmol/LLow3.7-5.3MHolzer Health SystemComment on above:Performed By: #### CDP, PTT, PT, BHCG, TSH #### [facility] [address] [place] [address] Intelligence Manager: Alexander Echevarria MD #### FT4, GLYHGB #### [address] [phone] Intelligence Manager: Kendrick Alegre MDProtein [Mass/Vol]8.7 g/dLHigh6.4-8.3MHolzer Health SystemComkresge eye institute on above:Performed By: #### CDP, PTT, PT, BHCG, TSH #### [facility] [address] [place], [place] [phone] Intelligence Manager: Alexander Echevarria MD #### FT4, GLYHGB #### [address] [phone] Intelligence Manager: JA Millsodium [Moles/Vol]140 mmol/CBoivwr588-486YbkwaCleveland Clinic Lutheran HospitalComment on above:Performed By: #### CDP, PTT, PT, BHCG, TSH #### [facility] [address] [place] [address] Intelligence Manager: Alexander Echevarria MD #### FT4, GLYHGB #### [place] [phone] Intelligence Manager: Kendrick Alegre MDUrea nitrogen [Mass/Vol]18 mg/dLNormal6-20[facility] HospitalComment on above:Performed By: #### CDP, PTT, PT, BHCG, TSH #### [facility] [address] [place] [address] Intelligence Manager: Alexander Echevarria MD #### FT4, GLYHGB #### [address] [phone] Intelligence Manager: CAMPOS Millsomprehensive Metabolic Panelon 09-09-2024 Albumin [Mass/Vol]4.9 g/dL3.5 - 5.2 g/dLBon [facility] HealthALP [Catalytic activity/Vol]107 U/LHigh35 - 104 U/LBon [facility] HealthALT [Catalytic activity/Vol]85 U/LHigh5 - 33 U/LBon [facility] CampusAnion gap [Moles/Vol]19 mmol/LHigh9 - 17 mmol/LBon [facility] HealthAST [Catalytic activity/Vol]110 U/LHighNINF - 32 U/LBon SecParkview HealthBilirubin [Mass/Vol]0.2 mg/dLLow0.3 - 1.2 mg/dLBon SecWomen[facility] and Children[facility] Hospital HealthCalcium [Mass/Vol]9.8 mg/dL8.6 - 10.4 mg/dL Bon [facility] HealthChloride [Moles/Vol]98 mmol/L98 - 107 mmol/LBon [facility] HealthCO2 [Moles/Vol]23 mmol/L20 - 31 mmol/LBon [facility] Health Creatinine [Mass/Vol]0.9 mg/dL0.5 - 0.9 mg/dLBon [facility] CampusEst, Glom Filt Rate84- PINFBon [facility] CampusComment on above: These results are not intended [...] therapy that affects renal tubular secretion. Glucose [Mass/Vol]106 mg/cQElfn20 - 99 mg/dLBon [facility] CampusPotassium [Moles/Vol]3.5 mmol/LLow3.7 - 5.3 mmol/LBon [facility] HealthProtein [Mass/Vol]8.7 g/dLHigh6.4 - 8.3 g/dLBon [facility] CampusSodium [Moles/Vol] 140 mmol/L135 - 144 mmol/LBon [facility] CampusUrea nitrogen [Mass/Vol]18 mg/dL6 - 20 mg/dLBon [facility] CampusUrea nitrogen/Creatinine [Mass ratio]20 mg/mg9 - 20Bon [facility] South CampusNo Panel Informationon 09-09-2024 Interpretation and review of laboratory resultsAbnormalBon [facility] Bon [facility] South CampusTSHon 04-74-5968HPX Qn4.74 m[IU]/LBon [facility]uel County Memorial HospitalThyroid Stim. Horm.on 08-34-9855Bvyvtso Stim. Horm.4.74 uIU/mLNormal0.30-5.00[facility] HospitalComment on above:Performed By: #### CDP, PTT, PT, BHCG, TSH #### [facility] [address] [place] [address] Intelligence Manager: Alexander Echevarria MD #### FT4, GLYCORBYB #### [facility] [employer] [address] [place] [address] Intelligence Manager: Arun Mills 98-06-4927Yfuonxlw I.cardiac High sensitivity method [Mass/Vol]15 ng/LHigh0 - 14 ng/LBon [facility] Comment on above:High Sensitivity Troponin values cannot be compared with other Troponin methodologies.Troponin, High Sens15 ng/LHigh0-14[facility] Comment on above:Result Comment: High Sensitivity Troponin values cannot be compared with other Troponin methodologies.Performed By: #### CDP, PTT, PT, BHCG, TSH #### [facility] [address] [place] [address] Intelligence Manager: Alexander Echevarria MD #### FT4, GLYHGB #### [facility] [employer] [facility] [place] [address] Intelligence Manager: CAMPOS Millsytology Cervical or vaginal smear or scraping studyon 90-99-5104LYLCCooper County Memorial Hospital Vital Signs Date TimeVital SignValuePerforming WjwwyplifSkendkdk36-33-3780 11:01-0500Body jemmec772 cmCorey Susan DO Work Phone: [facility] HospitalPnptnmfxoh02-27-0238 11:01-0500Body mass index (BMI) [Ratio]55.98 kg/g1Mrzna Susan DO Work Phone: [facility] HospitalYfrhbqmsmv35-76-4271 11:01-0500Body .34 kgCorey Susan DO Work Phone: [facility] HospitalKkvhrvcvsb34-08-9809 11:01-0500Diastolic blood fouudism07 mm[Hg]Carlos Eduardo Susan DO Work Phone: [phone]-[facility] HospitalHpoqeusade53-21-5848 11:01-0500Systolic blood mm[Hg]Carlos Eduardo Susan DO Work Phone: [phone])[facility] [place], [place] [address]Bhboxmkhue90-10-3619 15:21-0400Body ugcike648 cm Carlos Eduardo Susan DO Work Phone: [phone])[facility] [place], [place] [address]Zfhljqzgzb54-19-1592 15:21-0400Body mass index (BMI) [Ratio]56.15 kg/m3Cpqsf Susan DO Work Phone: [phone] [place], [place] [address]Prthvkufyw16-42-8929 15:21-0400Body vjsykj348.79 kgCorey Susan DO Work Phone: [phone])[facility] [place], [place] [address]Nwsyfwldkl48-48-5442 15:21-0400Diastolic blood rezzhvry31 mm[Hg]Carlos Eduardo Susan DO Work Phone: [phone])[facility] [place], [place] [address]Plqfzzajks10-50-5085 15:21-0400Systolic blood dzjlfyxg095 mm[Hg]Carlos Eduardo Susan DO Work Phone: [phone])[facility] [place], [place] [address]Orfurzedim72-59-5309 11:13-0400Body oheqlq355 cm Bebe Goldman MICROARRAY SPECIALIST Work Phone: [phone] [place], [place] [address]Vtaeqhmxfc57-95-5668 11:13-0400Body mass index (BMI) [Ratio]56.51 kg/n3QflygxcaBebe Goldman MICROARRAY SPECIALIST Work Phone: [phone] [place], [place] [address]Jxinrkehls24-59-4852 11:13-0400Body rbxuhg795.7 kgBebe Goldman MICROARRAY SPECIALIST Work Phone: [phone] [place], [place] [address]Mtfvqejliy10-87-0654 11:13-0400Diastolic blood lfsilofq63 mm[Hg]Bebe Goldman MICROARRAY SPECIALIST Work Phone: [phone])[facility] [place], [place] [address]Bamzlofwfa23-13-7425 11:13-0400Systolic blood gykufean958 mm[Hg]Bebe Goldman MICROARRAY SPECIALIST Work Phone: [phone] [place], [place] [address]Dfkxetxhla59-65-1379 10:13-0500Diastolic blood ifzfugek14 mm[Hg]Nick Hunt MD Work Phone: 1(606) [phone]slelg41-85-3035 10:13-0500Heart rate98 /minNick Hunt MD Work Phone: 1(983) [phone]keyli54-13-6021 10:13-0500Systolic blood pressure 141 mm[Hg]Nick Hunt MD Work Phone: 1(348) [phone]eousx43-29-8770 10:01-0500Body .5 cm Nick Hunt MD Work Phone: 1(950) [phone]menfd07-71-0313 10:01-0500Body mass index (BMI) [Ratio]57.8 kg/b3ItcnqwNick Hunt MD Work Phone: 1(823) [phone]rowvt78-81-0621 10:01-0500Body .34 kg Nick Hunt MD Work Phone: 1(136) [phone]gufhb82-24-0761 10:01-9752VfU6% (BldA) [Mass fraction]97 %Nick Hunt MD Work Phone: 1(786) [phone]zgctz90-23-1378 13:20-0500Body mass index (BMI) [Ratio]55.27 kg/m2Mora OLIVERA Work Phone: [facility] HospitalByvnwozoog13-88-0504 13:20-0500Body .79 kgMora OLIVERA Work Phone: [facility] HospitalGltrhljxqc91-29-3475 13:20-0500Diastolic blood eerfrlxd33 mm[Hg]Mora OLIVERA Work Phone: [facility] HospitalFgawxexczn29-34-1606 13:20-0500Systolic blood zzagwzoa498 mm[Hg]Mora OLIVERA Work Phone: [facility] HospitalYpsjmcvsoi47-87-2499 23:32-0500Diastolic blood bifiiyfl66 mm[Hg]Domenic Gallagher MD Work Phone: [facility]12-07-2024 23:32-0500Heart rate94 /minJoseph Ottaviano MD Work Phone: [facility] [employer]12-07-2024 23:32-0500 Respiratory rate19 /Ria Gallagher MD Work Phone: [facility] [employer]12-07-2024 23:32-0500Systolic blood mm[Hg]Domenic Gallagher MD Work Phone: [facility] [employer]12-07-2024 23:16-6828PlM7% (BldA) [Mass fraction]97 %Domenic Gallagher MD Work Phone: [facility] [employer]12-07-2024 23:00-0500Body ivbqgzssubv68.81 [degF]Domenic Gallagher MD Work Phone: [facility] [employer]12-07-2024 21:30-0500Body ugdkpc159.6 cmJoaleisha Gallagher MD Work Phone: [facility] [employer]12-07-2024 21:30-0500Body mass index (BMI) [Ratio]51.49 kg/o7LxpkodDomenic Gallagher MD Work Phone: [facility] [employer]12-07-2024 21:30-0500Body dkighp760.08 kgJoaleisha Gallagher MD Work Phone: [facility] [employer] Encounters Encounter DateEncounter TypeCare ProviderFacilityStart: 08-09-2025 End: 62-70-7341Szvmixc encounter procedureCorey SusanZebra Mobile Work Phone: [facility] [place] OBGYNComment on above:Pre-op examination; Menorrhagia with regular cycle; Abnormal uterine bleeding; Pelvic pain in female; Request for sterilizationStart: 08-09-2025 End: 64-82-8000Dbchjjuukujeu examination doneCorey Susan DO Work Phone: [facility] HealthcareStart: 08-09-2025 End: 33-96-6321rbxpoupiowGFLPD [facility] Work Phone: Start: 08-09-2025 End: 10-10-5851Nflkmuaz ReferredCorey Susan-LAB Path Spec Law HospStart: 08-01-2025 End: 54-24-5019lxaagkpsqnFFYOGPJ L YONLEYMercy Willard HospitalStart: 08-01-2025 End: 77-69-8515Jysfrnubrr hospital visit by physicianCentral [facility] Laboratory Schedule MWHZ LaboratoryComment on above:ArrivedStart: 07-17-2025 End: 31-91-2492pompoitoftJDLML FAZIONot AvailableStart: 07-17-2025 End: 23-80-0629Faagdg outpatient visit 15 minutesCorey Susan DO Work Phone: [facility] [place] OBGYNComment on above:Encounter for follow-up; Mycoplasma infection; Menorrhagia with regular cycle; Sexually transmitted disease exposure; Fatty liver; RashStart: 07-17-2025 End: 40-53-4646Irywkr flowsheetCorey Susan DO Work Phone: [facility] OBGYNStart: 07-17-2025 End: 26-82-5956Ahnpzx flowsheetCorey Susan DO Work Phone: [facility] OBGYNStart: 07-16-2025 End: 83-70-8754dgjnqufwzlLHMVNHP L YONLMAMADOUMercy Health [facility] Hospital HospitalStart: 07-16-2025 End: 12-92-9082Ndsfppcaia hospital visit by physicianBrooklyn [facility] Ultrasound Room [facility] UltrasoundComment on above:Examination for, follow-up; Cyst of right ovaryStart: 06-11-2025 End: 04-99-3477Jbqcrv Nancy Goldman MICROARRAY SPECIALIST Work Phone: [facility] [place] OBGYNStart: 06-11-2025 End: 66-05-6413Wsoapq Nancy Goldman MICROARRAY SPECIALIST Work Phone: [facility] OBGYNStart: 06-11-2025 End: 15-75-4561Nfuniugo Result EncounterBebe Goldman NP Work Phone: [facility] External Department UnsolicitedStart: 06-11-2025 End: 93-35-1420Dqoftu outpatient visit 15 minutesBebe Goldman NP Work Phone: [facility] [place] OBGYNComment on above:Encounter for follow-up; Cyst of right ovary; Irritation of both eyesStart: 06-11-2025 End: 67-46-5513ksqklmugqwERFHLJUA EBERLYNot AvailableStart: 06-07-2025 End: 86-84-6053Rrpkdwrrq department patient visitMagurujunie AcostaSarabjit Brar Facility:FTMCStart: 06-07-2025 End: 43-47-1209zwkgteuxxqEtgxctjk C BordnerFacility:FTMCStart: 06-07-2025 End: 67-80-4642Iblgnzu encounter procedurePahannah Edwards [phone]-IemykOhiohealth [facility] Start: 12-06-2024 End: 31-81-2563kozixzzyziULQRPGEsme [facility] AmbulatoryStart: 12-06-2024 End: 71-70-1169Ufvita outpatient new 45 minutesMicmarietta memorial hospital Keaton Taylor DO Work Phone: [facility] Heart & Vascular PhysiciansComment on above:SVT (supraventricular tachycardia); Paroxysmal supraventricular tachycardiaStart: 12-04-2024 End: 64-21-1950Yhavvs Amol Hunt MD Work Phone: [facility] Heart & Vascular PhysiciansComment on above:SVT (supraventricular tachycardia) (Primary Dx)Start: 11-15-2024 End: 53-95-5173Qgtt/qhp telephone evaluation 5-10 minCarlos Eduardo Davis DO Work Phone: [facility] BCP OBComment on above:Abnormal uterine bleeding (AUB)Start: 11-09-2024 End: 45-30-4352Varzluhlbi Pranav Farnsworth [facility] Heart & Vascular PhysiciansComment on above:Paroxysmal supraventricular tachycardia (Primary Dx) Start: 11-01-2024 End: 43-33-2951joqrjistgdBCNPFRN L YONLEYMercy Kasi HospitalStart: 11-01-2024 End: 15-70-9154Uzrjhxpwwc hospital visit by Mariela Garcia DO Work Phone: mwhz LaboratoryComment on above:Paroxysmal supraventricular tachycardia (HCC); Elevated liver enzymesStart: 10-02-2024 End: 60-70-9666Wjuxcp flowsheetMora OLIVERA Work Phone: [facility] BCP OBStart: 10-02-2024 End: 11-27-7612Owmnvv flowsheetMora OLIVERA Work Phone: [facility] BCP OBStart: 10-02-2024 End: 28-31-5571Zdspdabmf Result EncounterMora OLIVERA Work Phone: [facility] External Department UnsolicitedStart: 10-02-2024 End: 64-24-2063kwvillpymuXDQ RAMEYNot AvailableStart: 10-02-2024 End: 04-76-0239Uxdzlgv encounter procedureMora OLIVERA Work Phone: [facility] HealthcareStart: 10-02-2024 End: 23-21-1839Kjzaqsfn preventive med est patient 18-39 yrsMora OLIVERA Work Phone: [facility] BCP OBComment on above:Well woman exam with routine gynecological exam; Weight gain; Menorrhagia with regular cycleStart: 09-09-2024 End: 22-39-4695Ulvtonyit department patient visitDomenic Gallagher MD Work Phone: [facility]hernandez [place] Emergency DepartmentComment on above: Paroxysmal supraventricular tachycardia (HCC) (Primary Dx)Start: 06-01-2022 End: 32-49-7494Ioqfumfovm hospital visit by Mariela Garcia DO Work Phone: mwhz LaboratoryComment on above:Screening examination for STD (sexually transmitted disease); Vaginal odorStart: 12-30-2021 End: 69-03-1549Jedhwyqwdn hospital visit by physicianBrooklyn Hospital Centerkat [facility] Schedule M[facility]Z SLEEP LABComment on above:Sleep apnea, unspecified type; Fatigue, unspecified type; Loud snoring Procedures DateProcedureProcedure DetailPerforming ClinicianStart: 97-43-9193KVRCEPGRKCP BIOPSYCorey Susan DO Work Phone: Start: 49-66-1237Gofhe test visual color cmprsn methsCorey Susan DO Work Phone: Start: 81-47-7344Oghylcwm hiv-1&hiv-2 single result Carlos Eduardo Davis MD Work Phone: Start: 25-79-7313Seyyn of free thyroxineCarlos Eduardo Davis MD Work Phone: Start: 20-76-0161Drgj ia hepatitis b surface antigen Carlos Eduardo Davis MD Work Phone: Start: 08-01-2025T. PALLIDUM ABCsaray Davis MD Work Phone: Start: 09-34-4424Mq transvaginalKristina Jones WOOD HEEL FLAP TRIMMER - MOUNTAIN GUIDE Work Phone: Start: 14-15-0555Hjasa dip stick/tablet rgnt non-auto w/o micrscpKrstephie Goldman MICROARRAY SPECIALIST Work Phone: Start: 83-33-2528PFECKXSPBTT GENITOURINARY INFECTION (HTRX)Bebe Goldman MICROARRAY SPECIALIST Work Phone: Start: 84-55-8199Yulfwrh referral to party demonstrator External TranscribedStart: 37-10-9566Mkw routine ecg w/least 12 lds w/i&Saw Hunt MD Work Phone: Start: 92-35-5325Ycsrx hepatitis panelMichael Amalfitano DO Work Phone: Start: 13-94-6246Mtdfvgdvlphns metabolic panelMichael Amalfitano DO Work Phone: Start: 18-35-0723SVO,APTIMA HPV,AGE GDLNMora OLIVERA Work Phone: Start: 83-74-1251Bbiylkutjnt observation [Identifier] in Cervix by Cyto stainCorey Susan DO Work Phone: Start: 43-99-4165Etcqdbwtxyfam metabolic panelJoaleisha Gallagher MD Work Phone: Start: 10-29-0815Ggy routine ecg w/least 12 lds w/i&r Domenic Gallagher MD Work Phone: Start: 67-82-3872Dslmrvdvavt observation [Identifier] in Cervix by Cyto stainMora OLIVERA Work Phone: Start: 69-41-3452Jzlm cerv/vag auto thin layer prep mnl screenMora OLIVERA Work Phone: None (qualifier value)Amira Carybernice Plan of Treatment DateCare ActivityDetailAuthorStart: 94-93-8196Qfxxenune for malignant neoplasm of cervixNOMS HealthcareStart: 82-72-9099Ibadsesgx for malignant neoplasm of cervixNOMS HealthcareStart: 35-11-4837Nramfnidl for malignant neoplasm of cervix ArkansasHealthStart: 16-65-0088Pohojioxhw ScreenDepression ScreenBon [facility] CampusStart: 10-17-2025 End: 17-06-4600Irhwvzx encounter nxlljyvzi40/14/2026 12:40 PM EST Office Visit [facility] [place] [address] [place] [address] Krystal Garcia DO [address] [place] [address] 6 mos - [facility] [place] Comment on above:6 mos - AnxietyStart: 10-09-2025 End: 79-50-1554Nftzemj encounter procedureNOMS BCP OBStart: 58-21-7102Ntkndsp and physical examination, annual for health maintenanceReston Hospital Center VisitOhioHealth Start: 09-05-2025 End: 77-38-7725Smqdnco encounter iaoygmhss23/03/2025 7:40 AM EST Office Visit [facility] [place] [address] [facility] [place] [address] Krystal Garcia DO [address] [facility] [place] [address] 1 mos - recheck [facility] CityComment on above:1 mos - recheck rashStart: 08-28-2025 End: 56-59-2954Iwglfud encounter rkyoyrxas54/25/2025 9:00 AM EST Office Visit [facility] Fundraiser [address] [place] [address] Mayuri Taylor DO [address] [place] [address] 6 month f/uMercy Fundraiser Comment on above:6 month f/uStart: 08-09-2025 End: 53-45-9817Lwkrtfh encounter iqsqisbau07/06/2025 10:30 AM EST Procedure Visit GABRIEL ALSTON [address] [place], [id number] Carlos Eduardo Davis DO [address] [place] [address] GABRIEL SALINAStart: 07-17-2025 End: 59-25-2383xUOY in Blood by Coagulation assayAPTT Lab Routine Menorrhagia with regular cycle Expected: 07/17/2025 (Approximate), Expires: 07/17/2026NOWV HealthcareComment on above:Expected: 07/17/2025 (Approximate), Expires: 07/17/2026Start: 07-11-2025 End: 46-84-8135Ccjsvgrnzjoq / ancillary services vxcwqygtzt46/08/2025 10:00 AM EDT Ancillary Procedure NOMMee ALSTON [address] [place] [address] [facility] [place] OBGYNStart: 06-11-2025 End: 38-25-4080DV PelvisUS Pelvis w/ TV Imaging Routine Encounter for follow-up Cyst of right ovary Expected: 06/11/2025, Expires: 12/09/2025[facility] Work Phone: comment on above:Expected: 06/11/2025, Expires: 12/09/2025Start: 06-11-2025 End: 74-57-7304Qfifnat encounter huifsdths81/08/2025 11:10 AM EDT Office Visit GABRIEL ALSTON [address] [place] [address] Bebe Goldman, JOO [address] [place] [address] Roxi ALSTON Comment on above:ArrivedStart: 42-34-1017GSRMF-19 Vaccine ( season) COVID-19 Vaccine ( season)Bon [facility] CampusStart: 06-04-2025 Influenza vaccinationInfluenza Vaccine (#1)[facility] HealthcareStart: 05-04-2025 Influenza vaccinationFlu vaccine (#1)Bon [facility] CampusStart: 02-27-2025 End: 30-26-5944Xjtdpsn encounter rgriddudc75/27/2025 9:00 AM EDT Office Visit [facility] Fundraiser [address] [place] [id number] Mayuri Taylor DO [address] [place] [address] 4 mth follow upUniversity [facility]als [facility] Center Cardiology SpecialistComment on above:4 mth follow upStart: 12-13-2024 End: 28-53-2153Eyosdcw encounter eewjstjtu13/12/2025 12:40 PM EDT Office Visit [facility] [place] [address] [facility] [place] [address] Krystal Garcia DO [address] [place] [address] 6 weeks (around 12/13/2024) for anxiety. [facility] KASIComment on above:6 weeks (around 12/13/2024) for anxiety.Start: 12-06-2024 End: 05-61-1888Clcspqv encounter procedureOhioHealth [facility] & V[facility] Physicians Start: 11-15-2024 End: 95-19-0099Eohcxql encounter ymtrpfbdc68/12/2025 8:10 AM EST Office Visit [facility] [address] [place] [id number] Carlos Eduardo Davis [address] [facility] [address] [place] [address] [facility] BCP OBStart: 10-02-2024 End: 15-94-2188cEIH in Blood by Coagulation assayAPTT Lab Routine Menorrhagia with regular cycle Expected: 10/02/2024 (Approximate), Expires: 10/02/2025N[facility] HealthcareComment on above:Expected: 10/02/2024 (Approximate), Expires: 10/02/2025Start: 10-02-2024 End: 15-29-6747LH for pregnancyUS PELVIS-TRANSVAG IF INDICATED Imaging Routine Menorrhagia with regular cycle Expected: 10/02/2024(Approximate), Expires: 10/02/2025N[facility] HealthcareComment on above:Expected: 10/02/2024 (Approximate), Expires: 10/02/2025Start: 54-33-7249GGAOP-19 Vaccine ( season)COVID- 19 Vaccine ( season)ArkansasHealthStart: 73-77-7045KHWKN-19 Vaccine ( season)COVID-19 Vaccine ( season)[facility] Start: 02-77-0037BYPQA-19 Vaccine ( season)COVID-19 Vaccine ( season)[facility]ansasHealthStart: 41-12-0367Zcviwsjby vaccinationInfluenza Vaccine (#1)[facility] HealthcareStart: 48-92-2078Kdnhtvfmz vaccinationFlu vaccine (#1)[facility] HospitalStart: 29-14-9109Enkunkqflq ScreenDepression ScreenBon [facility] CampusStart: 40-67-6792Psjdriswdd ScreenDepression ScreenBON UC Medical Centerart: 36-00-2532VIaA/Tdap/Td vaccine (2 - Td or Tdap) DTaP/Tdap/Td vaccine (2 - Td or Tdap)[facility] HospitalStart: 77-93-2399Deaspgi vaccinationTetanus: Every 10yrsOhioHealthStart: 06-12-2022 End: 56-02-6281Jikfhib encounter yfqotukyp66/09/2022 Office Visit Family Medicine Krystal Garcia DO [address] [place] [address] [facility] WILLARDStart: 17-48-5875Bldptrtzw vaccinationFlu vaccine (#1)[facility]Start: 06-02-2022 End: 51-66-5308Uglfxlg encounter wiikfhqfg89/30/2022 Office Visit Cardiology Elvis Alvarenga MD [address] [place] [address] [facility] Cardiology SpecialistStart: 01-13-2022 End: 26-69-8088Tyclgfb encounter bcehcjmqk02/12/2022 Office Visit Cardiology Elvis Alvarenga MD [address] [place] [address] [facility] Cardiology SpecialistStart: 65-17-2886POBNE-19 Vaccine (2 - Pfizer 3-dose series)COVID-19 Vaccine (2 - Pfizer 3-dose series)[facility]: 21-66-0681Uzzmiftpv vaccinationFlu vaccine (#1)[facility]: 54-15-5517Zfmresqiu for malignant neoplasm of cervixWilson Memorial Hospital: 79-76-4284Lazcxngoo for malignant neoplasm of cervixPap smearWhite Hospitalart: 95-80-7076Xxbvavtmv B vaccine (1 of 3 - 19+ 3-dose series)Hepatitis B vaccine (1 of 3 - 19+ 3-dose series)Bon [facility] Ohioart: 07-34-1434Vtzmxhqxy C screeningPage Memorial Hospital: 99-34-1848HPR screeningMiami Valley Hospital Start: 04-36-7898Ngsujlqgr vaccine (1 of 2 - 13+ 2-dose series)Varicella vaccine (1 of 2 - 13+ 2-dose series)[facility]: 70-62-7717Gxnalxmmfu ScreenDepression ScreenWilson Memorial Hospital: 32-37-4663Ihkgcdojup screening using PHQ-9 (Patient Health Questionnaire 9) scoreDepression Screening/Follow-Up (PHQ-2/9)[facility] CenterStart: 86-64-2819Vfewwpd and physical examination, annual for health maintenanceReston Hospital Center VisitUniversity Hospitals St. John Medical CenterStart: 16-73-8829Fwpapofyp vaccine (1 of 2 - 2-dose childhood series)Varicella vaccine (1 of 2 - 2-dose childhood series)[facility]: 74-90-1028GPRMP-19 Vaccine (#1)COVID-19 Vaccine (#1) [facility]: 45-81-9126Uxkxsowei C screeningHepatitis C screen [facility]: 98-01-0178Cdwnqzj vaccinationTetanus: Every 10yrsOhioHealth End: lead ECGECG 12 Lead ECG Routine SVT (supraventricular tachycardia) 15 Occurrences starting 12/04/2024 until12/04/2028[facility] Work Phone: Comment on above:15 Occurrences starting 12/04/2024 until 12/04/2028CBC W Auto Differential panel - BloodCBC and differential Lab Routine Menorrhagia with regular cycle Ordered: 10/02/2024[facility] HealthcareComment on above:Ordered: 4CBC W Auto Differential panel - BloodCBC and differential Lab Routine Menorrhagia with regular cycle Ordered: 07/17/2025[place] HealthcareComment on above:Ordered: 07/17/2025HLAMYDIA TRACHOMATIS (GENITO/STI) CHLAMYDIA TRACHOMATIS (GENITO/STI) Lab Routine Encounter for follow-up Cyst of right ovary Ordered:06/11/2025[facility] HealthcareComment on above:Ordered: 06/11/2025HLAMYDIA TRACHOMATIS (GENITO/STI)CHLAMYDIA TRACHOMATIS (GENITO/STI) Lab Routine Encounter for follow-up Mycoplasma infection Ordered: 07/17/2025[facility] HealthcareComment on above:Ordered: 07/17/2025 End: 69-42-7993Lfxmfognc/GC DNA, UrineMetaCarta Work Phone: comment on above:1 Occurrences starting 06/01/2022 until 2Comprehensive metabolic 2000 panel - Serum or Plasma Comprehensive metabolic panel Lab Routine Fatty liver Ordered: 07/17/2025[place] HealthcareComment on above:Ordered: 07/17/2025ytology Cervical or vaginal smear or scraping studyPap Smear Pathology and Cytology Routine Well woman exam with routine gynecological exam Ordered: 10/02/2024[place] [employer] Work Phone: comment on above:Ordered: 10/02/2024EKG 12 LeadEKG 12 Lead ECG Routine 09/09/2024 9:30 PM [facility] CenterhCG, quantitative, pregnancyhCG, quantitative, Lab Routine Menorrhagia with regular cycle Ordered: 10/02/2024[facility] HealthcareComment on above:Ordered: 10/02/2024hCG, quantitative, pregnancyhCG, quantitative, Lab Routine Menorrhagia with regular cycle Ordered: 07/17/2025[facility] HealthcareComment on above:Ordered: 07/17/2025Hemoglobin A1c/Hemoglobin.total in BloodHemoglobin A1c Lab Routine Menorrhagia with regular cycle Ordered: 10/02/2024[facility] Healthcare Comment on above:Ordered: 10/02/2024Hemoglobin A1c/Hemoglobin.total in Blood Hemoglobin A1c Lab Routine Menorrhagia with regular cycle Ordered: 07/17/2025 NOM HealthcareComment on above:Ordered: 07/17/2025Hepatitis B virus surface Ag [Presence] in Serum or Plasma by ImmunoassayHepatitis B surface antigen Lab Routine Sexually transmitted disease exposure Ordered: 07/17/2025[facility] Healthcare Comment on above:Ordered: 07/17/2025HIV-1/HIV-2 antigen/antibody combination immunoassayHIV-1 and HIV-2 antibodies Lab Routine Sexually transmitted disease exposure Ordered: 07/17/2025[facility] HealthcareComment on above:Ordered: 07/17/2025 End: 09-54-5016[facility] Routine Sleep apnea, unspecified type Fatigue, unspecified type Loud snoring 1 Occurrences starting 12/30/2021 until 12/30/2021[facility] Work Phone: Comment on above:1 Occurrences starting 12/30/2021 until 12/30/2021Human papilloma virus DNA [Presence] in Unspecified specimen by Probe with amplificationHPV DNA probe, amplified Microbiology Routine Well woman exam with routine gynecological exam Ordered: 10/02/2024[facility] HealthcareComment on above:Ordered: 10/02/2024Neisseria gonorrhoeae DNA [Presence] in Unspecified specimen by STEPHANIE with probe detectionNeisseria gonorrhea DNA probe, direct Lab Routine Encounter for follow-up Cyst of right ovary Ordered: 06/11/2025[facility] HealthcareComment on above:Ordered: 06/11/2025Neisseria gonorrhoeae DNA [Presence] in Unspecified specimen by STEPHANIE with probe detectionNeisseria gonorrhea DNA probe, direct Lab Routine Encounter for follow-up Mycoplasma infection Ordered: 07/17/2025[facility] HealthcareComment on above:Ordered: 07/17/2025 Prothrombin time (PT) in Blood by Coagulation assayProtime-INR Lab Routine Menorrhagia with regular cycle Ordered: 10/02/2024[facility] HealthcareComment on above:Ordered: 10/02/2024rothrombin time (PT) in Blood by Coagulation assay Protime-INR Lab Routine Menorrhagia with regular cycle Ordered: 07/17/2025[facility] HealthcareComment on above:Ordered: 07/17/2025Reagin Ab [Presence] in Serum by RPRRPR Lab Routine Sexually transmitted disease exposure Ordered: 07/17/2025[facility] HealthcareComment on above:Ordered: 07/17/2025SURESWAB(R) ADVANCED VAGINITIS PLUS, TMASURESWAB(R) ADVANCED VAGINITIS PLUS, TMA Pathology and Cytology Routine Encounter for follow-up Cyst of right ovary Ordered: 06/11/2025[facility] Healthcare Comment on above:Ordered: 06/11/2025SURESWAB(R) ADVANCED VAGINITIS PLUS, TMA SURESWAB(R) ADVANCED VAGINITIS PLUS, TMA Pathology and Cytology Routine Encounter for follow-up Mycoplasma infection Ordered: 07/17/2025[facility] Healthcare Work Phone: comment on above:Ordered: 07/17/2025Thyrotropin [Units/volume] in Serum or PlasmaTSH Lab Routine Menorrhagia with regular cycle Ordered: 10/02/2024[facility] HealthcareComment on above:Ordered: 10/02/2024 Thyrotropin [Units/volume] in Serum or PlasmaTSH Lab Routine Menorrhagia with regular cycle Ordered: 07/17/2025[facility] HealthcareComment on above:Ordered: 07/17/2025Thyroxine (T4) free [Mass/volume] in Serum or PlasmaT4, free Lab Routine Menorrhagia with regular cycle Ordered: 10/02/2024[facility] HealthcareComment on above:Ordered: 10/02/2024Thyroxine (T4) free [Mass/volume] in Serum or PlasmaT4, free Lab Routine Menorrhagia with regular cycle Ordered: 07/17/2025 [facility] HealthcareComment on above:Ordered: 07/17/2025 End: 49-18-2187Kmvexaell DNA ProbeBON [facility] Work Phone: comment on above:1 Occurrences starting 06/01/2022 until 06/01/2022 Immunizations Immunization DateImmunizationNotesCare RspegtyrRrnsbevx68-18-5389CAEJ-GqA-4 (COVID-19) mRNA BNT-162b2 maria isabelxAmira Edwards [phone]-MqtpdThe [facility] Zcus99-96-2275 tetanus toxoid, reduced diphtheria toxoid, and acellular pertussis vaccine, adsorbedKrystal Garcia DO Work Phone: bon GameyolaComment on above:Reason for Medication: Other (see comment)51-52-3729qjtml jjhomrdgk-D2Z3-60, preservative- free, injectableKrystal Garcia DO Work Phone: bon [employer] Work Phone: Payers DatePayer CategoryPayerPolicy [id number]-[id number] Care HMO (unspecified)[employer] [facility] HMO/CHOICE PLUS/ARIAN/ARIAN PLUS Member Subscriber Plan / Payer (Effective 2024-Present) Name: Myra Valencia Relation to Subscriber: Self Name: Myra Valencia Payer ID: [id number] (NAIC) Type: Not on file Address: [address] [place] [phone] Health Insurance [id number] Health [facility] [id number] 2021- Present [address] [place] [id number]5-0939Clbvjjw Health Insurance [id number] 1.2.840.174147.1.13.239.2.7.3.663[id number] 2.16.840.1.037727.3.57[id number] 2.16.840.1.673858.3.57[id number] 2.16840.1.190981.3.57[id number] 2.16.840.1.647626.3.57[id number] 2.16840.1.610834.3.57[id number] 2.16840.1.022960.3.57[id number] 2.16840.1.964679.3.57[id number] 2.840.1.527185.3.57[id number] 2.16840.1.417638.3.57[id number] 2.840.1.373207.3.57[id number] 2.840.1.758933.3.57[id number] 2.16840.1.606695.3.57[id number] 2.16840.1.256417.3.57[id number] 2.16840.1.619089.3.57[id number] 2.16840.1.765[id number] 2.16840.1.556038.3.579.2.531 Social History DateTypeDetailFacilityStart: 05-10-2018 End: 69-96-0163Sghliwk smoking status NHISNever smoked tobaccoUniversity Hospitals Lake West Medical Center [employer] Phone: start: 05-10-2018 End: 23-39-9312Xmurrvb use and exposureSmokeless tobacco non-userUniversity Hospitals Lake West Medical Center [employer] Phone: start: 12-02-2021 End: 73-11-4641Txzgbyl intakeCurrent non-drinker of alcohol (finding)Drizly Phone: start: 46-02-5280Qkd Assigned At BirthNot on Community Medical CenterCequent Pharmaceuticals Phone: start: 46-52-6487Inecacz SDOH Trqghxfuv5SDT [facility] Work Phone: start: 33-73-5774Ljaxezn SDOH Food Qzwxa8MXJ [facility] [employer] Work Phone: start: 09-09-2024 End: 20-16-6265Vdxgiih of Social functionBon [facility] CampusStart: 09-09-2024 End: 70-83-0533Nibcfyl Use Disorder Identification Test - Consumption [AUDIT-C] [facility] HospitalJ[facility] [employer] InternationalHow often to you have a drink containing alcohol?Never [facility] HospitalStart: 90-15-6110Ivj many standard drinks containing alcohol do you have on a typical day?Patient does not drinkBon [facility] CenterJut Inc [facility](I/We) worried whether (my/our) food would run out before (I/we) got money to buy more.Never trueBon [facility] Medical CenterJut Inc [facility] HospitalTobacco smoking status NHIS Tobacco smoking consumption unknownBRIGHAM CITY [facility] HealthcareStart: 09-28-2023 End: 70-57-5646Biqzkazan beverage intakeLifetime non-drinker (finding)[facility] HealthcareStart: 29-22-6948Exo assigned at birthFeBryn Mawr Rehabilitation HospitalStart: 87-15-4071Noiyaa identityIdentifies as female gender (finding)[facility] Start: 10-31-9828Cakesc orientationHeterosexual (finding)[facility] HealthcareHas the electric, gas, oil, or water company threatened to shut off services in your home in past 12MoNoBon [facility]ours Sofia HealthStart: 44-91-2268Tikrvqbwa beverage intakeCurrent drinker of alcohol (finding)[facility] CenterStart: 93-15-0892Quqjpqt CommentoccationallyOhioHealthSexual OrientationOhiohealth [facility] Start: 01-15-2010 End: 31-44-9295VyyTbqgaz (finding)[facility] HospitalNEGATED: Highlighted rowStart: NINFHistory of tobacco usePassive smokerOhioHealth Clinical Notes 12-30-2021 to 08-09-2025 Note Date & NgtlNxdnCptducbc19-34-7000 History of Present illness Narrative* Britt Molina - 08/09/2025 10:30 AM ESTAssociated Order(s): Endometrial biopsy Pre-Procedure Diagnose(s): Menorrhagia with regular cycle; Abnormal uterine bleeding; Pelvic pain in female Post-Procedure Diagnose(s): Menorrhagia with regular cycle; Abnormal uterine bleeding; Pelvic pain in female Reason for Appointment: Patient ID: Myra Valencia is a 40 y.o. female who presents for Pre-op Visit and Endometrial Biopsy Patient presents today for a Pre Op/Endometrial Biopsy appointment. Patient is scheduled to undergoDa [place] assisted Bilateral Laparoscopic Salpingectomy and Endometrial Ablation with Staci on 09/07/[address] Davis at [facility]. appointment. MEDICATIONS No current outpatient medications ALLERGIES [...] nursing note reviewed. Exam conducted with a energy broker present. Vitals: Estimated body mass index is 55.98 kg/m as calculated from the following: Height [...] reviewed, and patient is to proceed to [facility] OR. Follow Up: Patient is to follow up between 1-2 weeks post op to assess proper healing and recovery from procedure. Documented by Edwige Christy LPN on behalf of: Carlos Eduardo Davis DO documented in this encounterCooper County Memorial HospitalLxfctpgafh71-04-2517 History of Present illness Narrative* Alice Rodriguez LPN - 07/17/2025 2:50 PM EDT mum Reason for Appointment: Patient ID: Myra Valencia is a 40 y.o. female who presents for Follow-up (Pt present today to f/lia Brown.) Patient presents today for Acute Visit. and Follow up appointment to discuss results. MEDICATIONS Current Outpatient Medications Medication Instructions azithromycin (Zithromax) 500 MG tablet Day 1: Take 2 tablets PO onetime dose; Day 2,3,4: Take 1 tablet daily ALLERGIES Allergies[1] PROBLEMS Active Ambulatory Problems Diagnosis Date Noted No Active Ambulatory Problems Resolved Ambulatory Problems Diagnosis Date Noted No Resolved Ambulatory Problems Past Medical History: Diagnosis Date Migraines HISTORY PAST MEDICAL HISTORY SOCIAL HISTORY Medical History[2] Social History Tobacco Use Smoking status: Not on file Smokeless tobacco: Not on file Substance Use Topics Alcohol use: Never Drug use: Not on file FAMILY HISTORY Family History[3] SURGICAL HISTORY Surgical History[4] REVIEW OF SYSTEMS Review of Systems: Review of Systems Constitutional: Negative. HENT: Negative. Eyes: Negative. Respiratory: Negative. Cardiovascular: Negative. Gastrointestinal: Negative. Genitourinary: Positive for pelvic pain. Musculoskeletal: Negative. Skin: Negative. Neurological: [...] nursing note reviewed. Exam conducted with a energy broker present. Vitals: Estimated body mass index is 56.15 kg/m as calculated from the following: Height as of this encounter: 5' 3 . Weight as of this encounter: 317 lb. BP: 128/72 Patient's last menstrual period was 07/17/2025 (exact date). ASSESSMENT & PLAN ICD-10-CM 1. Encounter for follow-up Z09 SURESWAB(R) ADVANCED VAGINITIS PLUS, TMA CHLAMYDIA TRACHOMATIS (GENITO/STI) Neisseria gonorrhea DNA probe, direct 2. Mycoplasma infection A49.3 SURESWAB(R) ADVANCED VAGINITIS PLUS, TMA CHLAMYDIA TRACHOMATIS (GENITO/STI) Neisseria gonorrhea DNA probe, direct 3. Menorrhagia with regular cycle N92.0 Pt presents for cultures after mycoplasma. Cultures obtained. Pt is having heavy menstrual periods.Pt desires surgical management. Pt to be scheduled for endometrial ablation with tubal Pt to returnfor embx preop. Pt given liver enzymes and std panel to have obtained. Documented by Alice Rodriguez LPN on behalf of: Mora Welch PA-C [1] No Known Allergies [2] Past Medical History: Diagnosis Date Migraines [3] Family History Problem Relation Name Age of Onset No Known Problems Mother Hypertrophic cardiomyopathy Father Diabetes Father Other (Chronic strep) Son Thyroid disease Father's Sister [4] History reviewed. No pertinent surgical history. documented in this encounterCooper County Memorial HospitalBrosztbqli50-80-9967 NoteProgress Note-Nurse Patient called after getting a letter in the mail to call for results. This nurse looked in patients chart and verbalized to patient that letter was [facility]09-08-[facility]25 History of Present illness Narrative* Edwige Christy LPN - 06/11/2025 11:10 AM EDT Images from the original note were not included. Reason for Appointment: Patient ID: Myra Valencia is a 40 y.o. female who presents for ER Follow-up (Pt present today for af/up ER visit. Pt was seen at [facility] on 06/07/2025 for ovarian cyst pain.) Patient presents today for Consult appointment. MEDICATIONS No current outpatient medications ALLERGIES [...] Cardiovascular: Negative. Gastrointestinal: Negative. Genitourinary: Positive for pelvic pain. Musculoskeletal: Negative. Skin: Negative. Neurological: Negative. All other systems reviewed and are negative. Hematological: Negative. Endocrine: Negative. Allergic/Immunologic: Negative. OBJECTIVE Objective: Physical Exam Eyes: Vitals: Estimated body mass index is 56.51 kg/m as calculated from the following: Height as of this encounter: 5' 3 . Weight as of this encounter: 319 lb. BP: 124/74 Patient's last menstrual period was 05/24/2025 (exact date). ASSESSMENT & PLAN ICD-10-CM 1. Encounter for follow-up Z09 2. Cyst of right ovary N83.201 Patient presents to office today for ER follow up. Patient to give urine sample prior to leaving office today. Patient had Keflex at home and ER provider advised patient to complete course of Keflex.Discussed having US in 4 weeks for right ovarian cyst. Patent feels that her pain may have been from colon, but at this time will rule out SUPERVISING BAILIFF causes and if need be can be referred out later for colonoscopy. Patient voiced that she has noticed a rash near left eye with some on the right eye externally. After looking at rash it appears to be more of an allergic reaction. Discussed Miralax and helping with bowel movements. If any issues with urine sample and if medication would need to be sent they to [facility]. Urine sample came back negative in office, will send urine out for STD testing as patient voiced she never received results from urgent care and does not see where they sent out samples that they had her obtain herself. Documented by Edwige Christy LPN on behalf of: Bebe Goldman NP documented in this encounterCooper County Memorial [id number] Hospital Discharge instructions Patient Education 06/07/2025 17:30:58 Abdominal Pain, Adult, Mhqf-wv-Wnjl Abdominal Pain, Adult Many things can cause belly (abdominal) pain. In most cases, belly pain is not a serious problem and can be watched and treated at home. But in some cases, it can be serious. Your doctor will try to find the cause of your belly pain. Follow these instructions at home: Medicines Take biue-htz-dqutymm and prescription medicines only as told by your doctor. Do not take medicines that help you poop (laxatives) unless told by your doctor. General instructions Watch your belly pain for any changes. Tell your doctor if the pain gets worse. Drink enough fluid to keep your pee (urine) pale yellow. Contact a doctor if: Your belly pain changes or gets worse. You have very bad cramping or bloating in your belly. You vomit. Your pain gets worse with meals, after eating, or with certain foods. You have trouble pooping or have watery poop for more than 2 3 days. You are not hungry, or you lose weight without trying. You have signs of not getting enough fluid or water (dehydration). These may include: ?Dark pee, very little pee, or no pee. ?Cracked lips or dry mouth. ?Feeling sleepy or weak. You have pain when you pee or poop. Your belly pain wakes you up at night. You have blood in your pee. You have a fever. Get help right away if: You cannot stop vomiting. Your pain is only in one part of your belly, like on the right side. You have bloody or black poop, or poop that looks like tar. You have trouble breathing. You have chest pain. These symptoms may be an emergency. Get help right away. Call 911. Do not wait to see if the symptoms will go away. Do not drive yourself to the hospital. This information is not intended to replace advice given to you by your health care provider. Make sure you discuss any questions you have with your health care provider. Document Revised: 07/07/2023 Document Reviewed: 07/07/2023 [employer] Patient Education 2023 [employer] 06/07/2025 17:30:53 Overactive Bladder, Adult Overactive Bladder, Adult Overactive bladder is a condition in which a person has a sudden and frequent need to urinate. A person might also leak urine if he or she cannot get to the bathroom fast enough (urinary incontinence). Sometimes, symptoms can interfere with work or social activities. What are the causes? Overactive bladder is associated with poor nerve signals between your bladder and your brain. Your bladder may get the signal to empty before it is full. You may also have very sensitive muscles thatmake your bladder squeeze too soon. This condition may also be caused by other factors, such as: Medical conditions: ?Urinary tract infection. ?Infection of nearby tissues. ?Prostate enlargement. ?Bladder stones, inflammation, or tumors. ?Diabetes. ?Muscle or nerve weakness, especially from these conditions: ?A spinal cord injury. ?Stroke. ?Multiple sclerosis. ?Parkinson's disease. Other causes: ?Surgery on the uterus or urethra. ?Drinking too much caffeine or alcohol. ?Certain medicines, especially those that eliminate extra fluid in the body (diuretics). ?Constipation. What increases the risk? You may be at greater risk for overactive bladder if you: Are an older adult. Smoke. Are going through menopause. Have prostate problems. Have a neurological disease, such as stroke, dementia, Parkinson's disease, or multiple sclerosis (MS). Eat or drink alcohol, spicy food, caffeine, and other things that irritate the bladder. Are overweight or obese. What are the signs or symptoms? Symptoms of this condition include a sudden, strong urge to urinate. Other symptoms include: Leaking urine. Urinating 8 or more times a day. Waking up to urinate 2 or more times overnight. How is this diagnosed? This condition may be diagnosed based on: Your symptoms and medical history. A physical exam. Blood or urine tests to check for possible causes, such as infection. You may also need to see a health care provider who specializes in urinary tract problems. This is called a urologist. How is this treated? Treatment for overactive bladder depends on the cause of your condition and whether it is mild or severe. Treatment may include: Bladder training, such as: ?Learning to control the urge to urinate by following a schedule to urinate at regular intervals. ?Doing Kegel exercises to strengthen the pelvic floor muscles that support your bladder. Special devices, such as: ?Biofeedback. This uses sensors to help you become aware of your body's signals. ?Electrical stimulation. This uses electrodes placed inside the body (implanted) or outside the body. These electrodes send gentle pulses of electricity to strengthen the nerves or muscles that control the bladder. ?Women may use a plastic device, called a pessary, that fits into the vagina and supports the bladder. Medicines, such as: ?Antibiotics to treat bladder infection. ?Antispasmodics to stop the bladder from releasing urine at the wrong time. ?Tricyclic antidepressants to relax bladder muscles. ?Injections of botulinum toxin type A directly into the bladder tissue to relax bladder muscles. Surgery, such as: ?A device may be implanted to help manage the nerve signals that control urination. ?An electrode may be implanted to stimulate electrical signals in the bladder. ?A procedure may be done to change the shape of the bladder. This is done only in very severe cases. Follow these instructions at home: Eating and drinking Make diet or lifestyle changes recommended by your health care provider. These may include: ?Drinking fluids throughout the day and not only with meals. ?Cutting down on caffeine or alcohol. ?Eating a healthy and balanced diet to prevent constipation. This may include: ?Choosing foods that are high in fiber, such as beans, whole grains, and fresh fruits and vegetables. ?Limiting foods that are high in fat and processed sugars, such as fried and sweet foods. Lifestyle Lose weight if needed. Do not use any products that contain nicotine or tobacco. These include cigarettes, chewing tobacco, and vaping devices, such as e-cigarettes. If you need help quitting, ask your health care provider. General instructions Take vbpw-cjl-pebbaay and prescription medicines only as told by your health care provider. If you were prescribed an antibiotic medicine, take it as told by your health care provider. Do notstop taking the antibiotic even if you start to feel better. Use any implants or pessary as told by your health care provider. If needed, wear pads to absorb urine leakage. Keep a log to track how much and when you drink, and when you need to urinate. This will help your health care provider monitor your condition. Keep all follow-up visits. This is important. Contact a health care provider if: You have a fever or chills. Your symptoms do not get better with treatment. Your pain and discomfort get worse. You have more frequent urges to urinate. Get help right away if: You are not able to control your bladder. Summary Overactive bladder refers to a condition in which a person has a sudden and frequent need to urinate. Several conditions may lead to an overactive bladder. Treatment for overactive bladder depends on the cause and severity of your condition. Making lifestyle changes, doing Kegel exercises, keeping a log, and taking medicines can help with this condition. This information is not intended to replace advice given to you by your health care provider. Make sure you discuss any questions you have with your health care provider. Document Revised: 06/09/2021 Document Reviewed: 06/09/2021 [employer] Patient Education 2023 [employer]. 06/07/2025 17:30:46 Gonorrhea Gonorrhea Gonorrhea is a sexually transmitted infection (STI) that can infect any person. If left untreated, this infection can: Damage the reproductive organs. Spread to other parts of the body. Cause someone to be unable to have children (infertility). Harm an unborn baby if an infected person is . It is important to get treatment for gonorrhea as soon as possible. All of your sex partners may also need to be treated for the infection. What are the causes? This condition is caused by bacteria called Neisseria gonorrhoeae. The infection is spread from person to person through sexual contact, including oral, anal, and vaginal sex. The infection can also pass from a person to the baby during . What increases the risk? The following factors may make you more likely to develop this condition: Being a woman younger than 25 years and sexually active. Being a man who has sex with men. Having a new sex partner or having multiple partners. Having a sex partner who has an STI. Not using condoms correctly or not using condoms every time you have sex. Having a history of STIs. What are the signs or symptoms? When symptoms occur, they may include: Abnormal discharge from the penis or vagina. The discharge may be cloudy, thick, or yellow-green incolor. Pain or burning when you urinate. Itching, irritation, pain, bleeding, or discharge from the rectum. This may occur if the infection was spread by anal sex. Sore throat or swollen lymph nodes in the neck. This may occur if the infection was spread by oral sex. Pain or swelling in the testicles. Bleeding between menstrual periods. If the infection has spread to other areas of the body, symptoms may include: Fever. Eye irritation. Swelling, redness, warmth, and pain in the joints. Rashes. In some cases, there are no symptoms. How is this diagnosed? This condition is diagnosed based on: A physical exam. A swab of fluid. The swab of fluid may be taken from the penis, vagina, throat, or rectum. Urine tests. Not all test results will be available during your visit. How is this treated? This condition is treated with antibiotic medicines. It is important to start treatment as soon as possible. Early treatment may prevent some problems from developing. You should not have sex during treatment. All types of sexual activity should be avoided for at least 7 days after treatment is complete and until your sex partner or partners have been treated. Follow these instructions at home: Take ahyx-ayp-chbobwk and prescription medicines as told by your health care provider. Finish all antibiotic medicine even when you start to feel better. Do not have sex during treatment. Do not have sex until at least 7 days after you and your partner or partners have finished treatment and your health care provider says it is okay. It is up to you to get your test results. Ask your health care provider, or the department that is doing the test, when your results will be ready. If you get a positive result on your gonorrhea test, tell your recent sex partners. These include any partners for oral, anal, or vaginal sex. They need to be checked for gonorrhea even if they do not have symptoms. They may need treatment, even if they get negative results on their gonorrhea tests. Keep all follow-up visits. This is important. How is this prevented? Use latex or polyurethane condoms correctly every time you have sex. Ask if your sex partner or partners have been tested for STIs and had negative results. Avoid having multiple sex partners. Get regular health screenings to check for STIs. Contact a health care provider if: Your symptoms do not get better after a few days of taking antibiotics. Your symptoms get worse. You cannot take your medicine as directed by your health care provider. You develop new symptoms, including: ?Eye irritation. ?Swelling, redness, warmth, and pain in the joints. ?Rashes. You have a fever. Summary Gonorrhea is a sexually transmitted infection (STI) that can infect any person. This infection is spread from person to person through sexual contact, including oral, anal, and vaginal sex. The infection can also pass from a person to the baby during . Symptoms include abnormal discharge, pain or burning while urinating, or pain in the rectum. This condition is treated with antibiotic medicines. Do not have sex until at least 7 days after both you and any sex partners have completed antibiotic treatment. Tell your health care provider if you have trouble taking your medicine, your symptoms get worse, or you have new symptoms. Keep all follow-up visits. This information is not intended to replace advice given to you by your health care provider. Make sure you discuss any questions you have with your health care provider. Document Revised: 08/13/2022 Document Reviewed: 08/13/2022 [employer] Patient Education 2023 [employer]. 06/07/2025 17:30:45 Chlamydia, Female, Xgxa-av-Ysdr Chlamydia, Female Chlamydia is a sexually transmitted infection (STI). This infection spreads through sexual contact. The infection can grow in: The urethra. This is the part of the body that drains pee (urine) from the bladder. The cervix. This is the lowest part of the womb (uterus). The throat. The opening of the butt (rectum). This condition is not hard to treat. But if it is not treated, it can cause worse health problems. You may have a higher risk of not being able to have children. Also, if you are or get and have untreated chlamydia: It can cause serious problems during . It can spread to your baby during delivery and cause your baby to have health problems. What are the causes? This condition is caused by a germ (bacteria) called Chlamydia trachomatis. These germs are spread from an infected partner during sex. The infection can spread through contact with the genitals, mouth, or the opening of the butt (rectum). What increases the risk? Not using a condom the right way. Not using a condom every time you have sex. Having a new sex partner. Having more than one sex partner. Being sexually active before age 25. What are the signs or symptoms? In some cases, there are no symptoms, especially early in the illness. If you get symptoms, they may include: Peeing often, or a burning feeling when you pee. Redness, soreness, or swelling of the vagina or butt. Fluid (discharge) coming from the vagina or butt. Pain the belly (abdomen). Pain during sex. Bleeding between monthly periods or irregular periods. How is this treated? This condition is treated with antibiotic medicines. Follow these instructions at home: Sexual activity Tell your sex partner or partners about your infection. Sex partners are people you had oral, anal,or vaginal sex with within 60 days of when you started getting sick. They need treatment even if they do not feel or seem sick. Do not have sex until: ?You and your sex partners have been treated. ?Your doctor says it is okay. If you get just one dose of medicine, wait at least 7 days before having sex. General instructions Take gmsh-xxk-piesazx and prescription medicines as told by your doctor. Finish your antibiotics even if you start to feel better. It is up to you to get your test results. Ask how to get your results when they are ready. Keep all follow-up visits. You may need tests after 3 months. How is this prevented? To lower your risk: Use latex or polyurethane condoms the right way. Do this every time you have sex. Do not have many sex partners. Ask if your sex partner got tested for STIs and had negative results. Get regular health screenings to check for STIs. Contact a doctor if: You get new symptoms. Your symptoms are getting worse or do not get better with treatment. You have a fever or chills. You have pain during sex. Your periods are irregular. You bleed between periods or after sex. You get flu-like symptoms. These may be: ?Night sweats. ?Sore throat. ?Muscle aches. You are unable to take your antibiotic medicine as prescribed. Summary Chlamydia is an infection that spreads through sexual contact. This condition is treated with antibiotics. If it is not treated, it can cause health problems. Your sex partners will also need to be treated. Do not have sex until both you and your partner have been treated. Take all medicines as told and keep all follow-up visits. This information is not intended to replace advice given to you by your health care provider. Make sure you discuss any questions you have with your health care provider. Document Revised: 06/29/2022 Document Reviewed: 06/29/2022 [employer] Patient Education 2023 [employer]. Follow Up Care 06/07/2025 11:21:34 With:KRYSTAL GARCIA DO Address: [address] [place] [address]- When: Unknown [facility] 09-04-2025 NoteED Patient Education Note Obstetrics and Gynecology Ovarian Cyst An ovarian cyst is a fluid-filled sac that forms on an ovary. The ovaries are small organs that produce eggs in women. Various types of cysts can form on the ovaries. Some may cause symptoms and require treatment. Most ovarian cysts go away on their own, are not cancerous (are benign), and do not cause problems. What are the causes? Ovarian cysts may be caused by: ??? Ovarian hyperstimulation syndrome. This is a condition that can develop from taking fertility medicines. It causes multiple large ovarian cysts to form. ??? Polycystic ovarian syndrome (PCOS). This is a common hormonal disorder that can cause ovarian cysts to form, and can cause problems with your period or fertility. ??? The normal menstrual cycle. What increases the risk? The following factors may make you more likely to develop this condition: ??? Being overweight or obese. ??? Taking fertility medicines. ??? Taking certain forms of hormonal control. ??? Smoking. What are the signs or symptoms? Many ovarian cysts do not cause symptoms. If symptoms are present, they may include: ??? Pelvic pain or pressure. ??? Pain in the lower abdomen. ??? Pain during sex. ??? Abdominal swelling. ??? Abnormal menstrual periods. ??? Increasing pain with menstrual periods. How is this diagnosed? These cysts are commonly found during a routine pelvic exam. You may have tests to find out more about the cyst, such as: ??? Ultrasound. ??? CT scan. ??? MRI. ??? Blood tests. How is this treated? Many ovarian cysts go away on their own without treatment. Your health care provider may want to check your cyst regularly for 2?3 months to see if it changes. If you are in menopause, it is especially important to have your cyst monitored closely because menopausal women have a higher rate of ovarian cancer. When treatment is needed, it may include: ??? Medicines to help relieve pain. ??? A procedure to drain the cyst (aspiration). ??? Surgery to remove the whole cyst (cystectomy). ??? Hormone treatment or control pills. These methods are sometimes used to help keep cysts from coming back. ??? Surgery to remove the ovary (oophorectomy). Follow these instructions at home: ??? Take yxzl-tcu-zluxmkq and prescription medicines only as told by your health care provider. ??? Ask your health care provider if any medicine prescribed to you requires you to avoid driving or using machinery. ??? Get regular pelvic exams and Pap tests as often as told by your health care provider. ??? Return to your normal activities as told by your health care provider. Ask your health care provider what activities are safe for you. ??? Do not use any products that contain nicotine or tobacco, such as cigarettes, e-cigarettes, andchewing tobacco. If you need help quitting, ask your health care provider. ??? Keep all follow-up visits. This is important. Contact a health care provider if: ??? Your periods are late, irregular, painful, or they stop. ??? You have pelvic pain that does not go away. ??? You have pressure on your bladder or trouble emptying your bladder completely. ??? You have any of the following: ? A feeling of fullness. ? You are gaining weight or losing weight without changing your exercise and eating habits. ? Pain, swelling, or bloating in the abdomen. ? Loss of appetite. ? Pain and pressure in your back and pelvis. ??? You think you may be . Get help right away if: ??? You have abdominal or pelvic pain that is severe or gets worse. ??? You cannot eat or drink without vomiting. ??? You suddenly develop a fever or chills. ??? Your menstrual period is much heavier than usual. Summary ??? An ovarian cyst is a fluid-filled sac that forms on an ovary. ??? Some ovarian cysts may cause symptoms and require treatment. ??? These cysts are commonly found during a routine pelvic exam. ??? Many ovarian cysts go away on their own without treatment. This information is not intended to replace advice given to you by your health care provider. Make sure you discuss any questions you have with your health care provider. Document Revised: 02/21/2021 Document Reviewed: 02/27/2021 [employer] Patient Education ? 2023 [employer].[facility] 06-07-2025 NotePatient Education Gastroenterology Abdominal Pain, Adult Many things can cause belly (abdominal) pain. In most cases, belly pain is not a serious problem and can be watched and treated at home. But in some cases, it can be serious. Your doctor will try to find the cause of your belly pain. Follow these instructions at home: Medicines ??? Take hohl-bmj-lcoybfp and prescription medicines only as told by your doctor. ??? Do not take medicines that help you poop (laxatives) unless told by your doctor. General instructions ??? Watch your belly pain for any changes. Tell your doctor if the pain gets worse. ??? Drink enough fluid to keep your pee (urine) pale yellow. Contact a doctor if: ??? Your belly pain changes or gets worse. ??? You have very bad cramping or bloating in your belly. ??? You vomit. ??? Your pain gets worse with meals, after eating, or with certain foods. ??? You have trouble pooping or have watery poop for more than 2?3 days. ??? You are not hungry, or you lose weight without trying. ??? You have signs of not getting enough fluid or water (dehydration). These may include: ? Dark pee, very little pee, or no pee. ? Cracked lips or dry mouth. ? Feeling sleepy or weak. ??? You have pain when you pee or poop. ??? Your belly pain wakes you up at night. ??? You have blood in your pee. ??? You have a fever. Get help right away if: ??? You cannot stop vomiting. ??? Your pain is only in one part of your belly, like on the right side. ??? You have bloody or black poop, or poop that looks like tar. ??? You have trouble breathing. ??? You have chest pain. These symptoms may be an emergency. Get help right away. Call 911. ??? Do not wait to see if the symptoms will go away. ??? Do not drive yourself to the hospital. This information is not intended to replace advice given to you by your health care provider. Make sure you discuss any questions you have with your health care provider. Document Revised: 07/07/2023 Document Reviewed: 07/07/2023 Elsevier Patient Education ? 2023 [employer] Infectious Disease Chlamydia, Female Chlamydia is a sexually transmitted infection (STI). This infection spreads through sexual contact. The infection can grow in: ??? The urethra. This is the part of the body that drains pee (urine) from the bladder. ??? The cervix. This is the lowest part of the womb (uterus). ??? The throat. ??? The opening of the butt (rectum). This condition is not hard to treat. But if it is not treated, it can cause worse health problems. You may have a higher risk of not being able to have children. Also, if you are or get and have untreated chlamydia: ??? It can cause serious problems during . ??? It can spread to your baby during delivery and cause your baby to have health problems. What are the causes? This condition is caused by a germ (bacteria) called Chlamydia trachomatis. These germs are spread from an infected partner during sex. The infection can spread through contact with the genitals, mouth, or the opening of the butt (rectum). What increases the risk? Not using a condom the right way. ??? Not using a condom every time you have sex. ??? Having a new sex partner. ??? Having more than one sex partner. ??? Being sexually active before age 25. What are the signs or symptoms? In some cases, there are no symptoms, especially early in the illness. If you get symptoms, they may include: ??? Peeing often, or a burning feeling when you pee. ??? Redness, soreness, or swelling of the vagina or butt. ??? Fluid (discharge) coming from the vagina or butt. ??? Pain the belly (abdomen). ??? Pain during sex. ??? Bleeding between monthly periods or irregular periods. How is this treated? This condition is treated with antibiotic medicines. Follow these instructions at home: Sexual activity ??? Tell your sex partner or partners about your infection. Sex partners are people you had oral, anal, or vaginal sex with within 60 days of when you started getting sick. They need treatment even if they do not feel or seem sick. ??? Do not have sex until: ? You and your sex partners have been treated. ? Your doctor says it is okay. ??? If you get just one dose of medicine, wait at least 7 days before having sex. General instructions ??? Take gbwf-giw-amimovj and prescription medicines as told by your doctor. Finish your antibiotics even if you start to feel better. ??? It is up to you to get your test results. Ask how to get your results when they are ready. ??? Keep all follow-up visits. You may need tests after 3 months. How is this prevented? To lower your risk: ??? Use latex or polyurethane condoms the right way. Do this every time you have sex. ??? Do not have many sex partners. ??? Ask if your sex partne (more content not included)...[facility]03-05-2025 NoteSinus Rhythm -Poor R-wave progression -nonspecific -consider old anterior infarct. [id number] NoteSinus Rhythm -Poor R-wave progression -nonspecific -consider old anterior infarct. [facility] [id number] NoteHeart & Vascular Clinic Note [facility] Visit Date: 12/06/2024 Patient Name: Myra Valencia : 1985 Reason for Visit: Initial Visit (Intake) (Paroxysmal SVT/discuss EPS ) ASSESSMENT: #PSVT: Diagnosed in 2020. Started on digoxin and then started on cardizem PRN. Noted an increase in the frequency of these episodes. Was admitted at [facility] and ECG showed a short RP tachycardia. Was started on propranolol and diltiazem PRN. Was also started on lexapro for anxiety. I discussed treatment options including pursuing a catheter ablation vs medications. She'd prefer to pursue lifestyle changes first like weight loss and decreased caffeine intake. I encouraged her to start the inderal at least which she is agreeable to. #MADELIN #Family history of HOCM in father who has an ICD at 50y.o. and brother w/ CAD and CABG at 49. #ECHO: 2021 Left ventricle is normal in size. Global left ventricular systolic function is normal with an estimated ejection fraction of 60 % . Left atrium is normal in size. Right atrium is normal in size. Normal right ventricular size and function. Normal aortic valve structure and function without stenosis or regurgitation. Normal mitral valve structure and function. PLAN: --c/w inderal --c/w diltiazem PRN --c/w semaglutide --f/u 6mths to evaluate symptoms. HPI: Myra Valencia is a 39 y.o. female who presents today to discuss management of SVT. She has a h/o PSVT and follows w/ Dr. Alvarenga/. She noted increased frequency of the PSVT episodes and now occur 2x/week. SVT was first diagnosed in 02/[address] [facility]. Was started on digoxin. She was later started on cardizem PRN. Was admitted in September after another episode and ECG showed a short RP tachycardia. Histories History reviewed. No pertinent past medical history. History reviewed. No pertinent surgical history. History reviewed. No pertinent family history. Social History Socioeconomic History Marital status: Single Tobacco Use Smoking status: Never Passive exposure: Never Smokeless tobacco: Never Substance and Sexual Activity Alcohol use: Yes Comment: occationally Drug use: Never Social Drivers of Health Financial Resource Strain: Low Risk (01/26/2023) Received from [facility] Overall Financial Resource Strain (CARDIA) Difficulty of Paying Living Expenses: Not hard at all Food Insecurity: No Food Insecurity (11/01/2024) Received from [facility] Hunger Vital Sign Worried About Running Out of Food in the Last Year: Never true Ran Out of Food in the Last Year: Never true Transportation Needs: No Transportation Needs (11/01/2024) Received from [facility] PRAPARE - Transportation Lack of Transportation (Medical): No Lack of Transportation (Non-Medical): No Housing Stability: Low Risk (11/01/2024) [facility] from [facility] Housing Stability Vital Sign Unable to Pay for Housing in the Last Year: No Number of Times Moved in the Last Year: 0 Homeless in the Last Year: No Patient has no known allergies. Patient's Medications No medications on file No Known Allergies Review of Systems All system(s) were reviewed. Pertinent positive and negative findings are noted in the HPI. All system negative unless otherwise noted in the HPI PACU Vitals 12/06/24 1013 BP: (!) 141/94 Pulse: 98 SpO2: G: NAD HEENT: Anicteric Chest/Lung: CTA c/l, no wheezes, rubs, or rales CVS: S1 S2 no S3,4, no galops, rubs or murmurs Ab: Soft, NT, ND no guarding or rigidity LE: No edema Skin: Intact Neuro: non Focal Psychiatric: non Suicidal, non homicidal No results found for: GLUCOSE , CALCIUM , NA , K , CL , BUN , CREATININE No results found for: INR , PROTIME Diagnostic tests, personally reviewed: ECG: Sinus rhythm Holter monitor: none. Echocardiogram: reviewed Other workup reviewed ASSESSMENT & PLAN: See above Nick Hunt AUTHENTICATED BY NICK HUNT, ON 12/06/2024 11:09:33[facility] [id number] History of Present illness Narrative* Nick Hunt MD - 12/06/2024 10:16 AM EST Heart & Vascular Clinic Note [facility] Visit Date: 12/06/2024 Patient Name: Myra Valencia : 1985 Reason for Visit: Initial Visit (Intake) (Paroxysmal SVT/discuss EPS ) ASSESSMENT: #PSVT: Diagnosed in 2020. Started on digoxin and then started on cardizem PRN. Noted an increase in the frequency of these episodes. Was admitted at [facility] and ECG showed a short RP tachycardia. Was started on propranolol and diltiazem PRN. Was also started on lexapro for anxiety. I discussed treatment options including pursuing a catheter ablation vs medications. She'd prefer to pursue lifestyle changes first like weight loss and decreased caffeine intake. I encouraged her to start the inderal at least which she is agreeable to. #MADELIN #Family history of HOCM in father who has an ICD at 50y.o. and brother w/ CAD and CABG at 49. #ECHO: 2021 Left ventricle is normal in size. Global left ventricular systolic function is normal with an estimated ejection fraction of 60 % . Left atrium is normal in size. Right atrium is normal in size. Normal right ventricular size and function. Normal aortic valve structure and function without stenosis or regurgitation. Normal mitral valve structure and function. PLAN: --c/w inderal --c/w diltiazem PRN --c/w semaglutide --f/u 6mths to evaluate symptoms. HPI: Myra Valencia is a 39 y.o. female who presents today to discuss management of SVT. She has a h/o PSVT and follows w/ Dr. Alvarenga/. She noted increased frequency of the PSVT episodes and now occur 2x/week. SVT was first diagnosed in 02/[address] [facility]. Was started on digoxin. She was later started oncardizem PRN. Was admitted in September after another episode and ECG showed a short RP tachycardia. Histories History reviewed. No pertinent past medical history. History reviewed. No pertinent surgical history. History reviewed. No pertinent family history. Social History Socioeconomic History Marital status: Single Tobacco Use Smoking status: Never Passive exposure: Never Smokeless tobacco: Never Substance and Sexual Activity Alcohol use: Yes Comment: occationally Drug use: Never Social Drivers of Health Financial Resource Strain: Low Risk (01/26/2023) Received from [facility] Overall Financial Resource Strain (CARDIA) Difficulty of Paying Living Expenses: Not hard at all Food Insecurity: No Food Insecurity (11/01/2024) Received from [facility] Hunger Vital Sign Worried About Running Out of Food in the Last Year: Never true Ran Out of Food in the Last Year: Never true Transportation Needs: No Transportation Needs (11/01/2024) Received from [facility] PRAPARE - Transportation Lack of Transportation (Medical): No Lack of Transportation (Non-Medical): No Housing Stability: Low Risk (11/01/2024) Received from [facility] Housing Stability Vital Sign Unable to Pay for Housing in the Last Year: No Number of Times Moved in the Last Year: 0 Homeless in the Last Year: No Patient has no known allergies. Patient's Medications No medications on file No Known Allergies Review of Systems All system(s) were reviewed. Pertinent positive and negative findings are noted in the HPI. All system negative unless otherwise noted in the HPI PACU Vitals 12/06/24 1013 BP: (!) 141/94 Pulse: 98 SpO2: G: NAD HEENT: Anicteric Chest/Lung: CTA c/l, no wheezes, rubs, or rales CVS: S1 S2 no S3,4, no galops, rubs or murmurs Ab: Soft, NT, ND no guarding or rigidity LE: No edema Skin: Intact Neuro: non Focal Psychiatric: non Suicidal, non homicidal No results found for: GLUCOSE , CALCIUM , NA , K , CL , BUN , CREATININE No results found for: INR , PROTIME Diagnostic tests, personally reviewed: ECG: Sinus rhythm Holter monitor: none. Echocardiogram: reviewed Other workup reviewed ASSESSMENT & PLAN: See above Nick Hunt documented in this [id number] Instructions* Patient Instructions* Gregoria Herbert MA - 11/23/2024 3:42 PM EST It was our pleasure to see you in EP Clinic today. Please contact: MARY Machuca [phone] BLANCA Kinney RMA with questions, concerns, or if you need prescription refills before your next appointment. documented in this [id number] History of Present illness Narrative* Alice Rodriguez LPN - 11/15/2024 8:10 AM EST Reason for Appointment: Patient ID: Myra Valencia is a 39 y.o. female who presents for Menstrual Problem Patient presents today via telephone call for a telehealth appointment. Patients Phone #: [phone] (mobile) Current Medications: currently has no medications in their medication list. Medical History: Active Ambulatory Problems Diagnosis Date Noted No Active Ambulatory Problems Resolved Ambulatory Problems Diagnosis Date Noted No Resolved Ambulatory Problems Past Medical History: Diagnosis Date Migraines (CMS/HCC) Family History Problem Relation Name Age of Onset No Known Problems Mother Hypertrophic cardiomyopathy Father Diabetes Father Other (Chronic strep) Son Thyroid disease Father's Sister Social History Tobacco Use Smoking status: Not on file Smokeless tobacco: Not on file Substance Use Topics Alcohol use: Never Drug use: Not on file No past surgical history on file. No Known Allergies Vitals: Estimated body mass index is 55.27 kg/m as calculated from the following: Height as of 05/13/18: 5' 3.5 . Weight as of 10/02/24: 317 lb. BP: No LMP recorded. Assessment/Plan Encounter Diagnosis Name Primary? Abnormal uterine bleeding (AUB) Pt was called for telehealth visit. Pt has complaints of AUB. Dr Davis discussed all options with pt regarding bleeding. IE endometrial ablation, IUD. Pt considering. Pt has stress urinary incontinence, discussed urology referral. Pt to call back to sched embx- ultrasound will be obtained. Will discuss options further. Today's telehealth visit consisted of spending 10 minutes talking to patient on the phone. Documented by Alice Rodriguez LPN on behalf of: Carlos Eduardo Davis DO documented in this encounterCooper County Memorial [id number] History of Present illness Narrative* JAROD Leiva - 10/02/2024 1:00 PM EST Reason for Appointment: Patient ID: Myra Valencia [...] nursing note reviewed. Exam conducted with a energy broker present. Vitals: Estimated body mass index is 53.67 kg/m as calculated from the following: Height as of 18: 5' 3.5 . Weight as of 09/28/23: [...] on Semaglutide, the order was sent to [facility]. Pt complains of AUB and very irregular with her menstruation. Pt was given Menorrhagia labs/US to have obtained and to schedule a f/up visit with Dr. Davis after US is done. Pt verbally understood. Orders Placed This Encounter Procedures HPV DNA probe, amplified Follow Up: Patient is to return in one year for annual unless needed otherwise. Pt is to schedule a f/up visitwith Dr. Davis to review US and labs due to AUB/menorrhagia issues. Documented by Tamanna Faye MA on behalf of: JAROD Leiva documented in this encounterCooper County Memorial [id number] History of Present illness Narrative* Michel Tirado - 12/30/2021 7:15 PM EDT Myra arrived late for her HST Visit. Instruction regarding HST Unit setup and operation was given, to which she verbalized an understanding. [facility] Work Phone: evaluation + Plan note No data available for this section [facility] Care Evaluation note* Diagnosis Sleep apnea, unspecified type Fatigue, unspecified type Loud snoring documented in this encounter [employer] Phone: evaluation note* Diagnosis Screening examination for STD (sexually transmitted disease) Screening examination for venereal disease Vaginal odor Unspecified symptom associated with female genital organs documented in this encounter [facility] [employer] Phone: evaluation note* Diagnosis Paroxysmal supraventricular tachycardia (HCC)- Primary Paroxysmal supraventricular tachycardia documented in this encounter [email or web address] [facility] Diagnosis Well woman exam with routine gynecological exam Routine gynecological examination Weight gain Other symptoms concerning nutrition, metabolism, and development Menorrhagia with regular cycle documented in this encounter [facility] HealthcareEvaluation note* Diagnosis Paroxysmal supraventricular tachycardia (HCC)- Primary Paroxysmal supraventricular tachycardia Essential hypertension Unspecified essential hypertension Elevated liver enzymes Nonspecific elevation of levels of transaminase or lactic acid dehydrogenase (LDH) Morbid obesity due to excess calories Paroxysmal supraventricular tachycardia (HCC) Paroxysmal supraventricular tachycardia Elevated liver enzymes Nonspecific elevation of levels of transaminase or lactic acid dehydrogenase (LDH) documented in this encounter [facility] [email or web address] [facility]* Diagnosis Paroxysmal supraventricular tachycardia- Primary [facility] Diagnosis Abnormal uterine bleeding (AUB) documented in this encounter [facility] HealthcareEvaluation note* Diagnosis SVT (supraventricular tachycardia)- Primary Other specified cardiac dysrhythmias [facility] Diagnosis SVT (supraventricular tachycardia) Other specified cardiac dysrhythmias Paroxysmal supraventricular tachycardia [facility] Diagnosis Encounter for follow-up Cyst of right ovary Other and unspecified ovarian cyst Irritation of both eyes documented in this encounter [facility] Healthcare[facility] note* Diagnosis Encounter for follow-up Mycoplasma infection Menorrhagia with regular cycle Sexually transmitted disease exposure Contact with or exposure to venereal diseases Fatty liver Other chronic nonalcoholic liver disease Rash Rash and other nonspecific skin eruption documented in this encounter [facility] HealthcareEvaluation note* Diagnosis Paroxysmal supraventricular tachycardia- Primary Essential hypertension Unspecified essential hypertension Elevated liver enzymes Nonspecific elevation of levels of transaminase or lactic acid dehydrogenase (LDH) Morbid obesity due to excess calories (HCC) Examination for, follow-up Unspecified follow-up examination Cyst of right ovary Other and unspecified ovarian cyst documented in this encounter [facility] noteNo assessment information available [facility] Work Phone: Evaluation note* Diagnosis Pre-op examination Menorrhagia with regular cycle Abnormal uterine bleeding Unspecified disorder of menstruation and other abnormal bleeding from female genital tract Pelvic pain in female Unspecified symptom associated with female genital organs Request for sterilization [facility]* Attachments The following attachments cannot be sent through Care Everywhere. * Supraventricular Tachycardia ([place]) [facility] No data available for this section [facility] for referral (narrative)No reason for referral information available[facility] Work Phone: Renggn for visit Narrative* Imaging (Routine) - Open SpecialtyDiagnoses / ProceduresReferred By ContactReferred To ContactRadiology Diagnoses Examination for, follow-up Cyst of right ovary Procedures US PELVIS COMPLETE NON-OB TRANSABDOMINAL AND TRANSVAGINAL US NON OB TRANSVAGINAL US PELVIS COMPLETE Bebe Goldman APRN - [facility] [address] [place] [address] Phone: tel: fax: Referral IDStatusReasonStart DateExpiration DateVisits RequestedVisits [id number]/13/202510/ [facility] Reason for Referral SpecialtyDiagnoses / ProceduresReferred By ContactReferred To [facility] Diagnoses Sleep apnea, unspecified type Fatigue, unspecified type Loud snoring Procedures Home sleep study Elvis Alvarenga MD [address] [place] [address] Referral IDStatusReasonStart DateExpiration DateVisits RequestedVisits [id number]/22/20223/ Advance Directives TypeDate RecordedPatient RepresentativeExplanationACP-Advance DirectiveACP-Power of Automated Teller Manager Advance Directive Response Recorded Date/ Time Advance Directives No February 15 7:19pm Summary Purpose Family History Relationship Condition Age at Onset Recorded Date/T patricio Not Specified Hypertrophic obstructive cardiomyopathy Unknown Additional Source Comments Reason for Visit (unrecogniz ed section and content) SpecialtyDiagnoses / ProceduresReferred By ContactReferred To [facility] Diagnoses Sleep apnea, unspecified type Fatigue, unspecified type Loud snoring Procedures Home sleep study Elvis Alvarenga MD [address] [place] [address] Referral IDStatusReasonStart DateExpiration DateVisits RequestedVisits [id number]/22/[id number]eYybfvoi states she is in SVT. Started over an hour ago. Patient has Hx of SVT. Sees [facility]. Statesshe is supposed to take a pill when it starts. Patient states she doesn't know what the pill is andshe wasn't at home, so she came to the ER. ReasonCommentsGynecologic ExamWeight ManagementPt present today for weight loss consult injections through [facility].ReasonCommentsMenstrual ProblemReason CommentsInitial Visit (Intake)Paroxysmal SVT/discuss EPS ED in DecSpecialty Diagnoses / ProceduresReferred By ContactReferred To ContactCardiology Diagnoses Paroxysmal supraventricular tachycardia Mayuri Taylor DO [address] [place] [address] Phone: tel: fax: [facility] [address], [address]rd [place] [address] Phone: tel: fax: Referral IDStatusReasonStart DateExpiration DateVisits RequestedVisits [id number]/6/[id number] Follow-upPt present today for a f/up ER visit. Pt was seen at [facility] [place] on 06/07/2025 for ovarian cyst pain.ReasonCommentsFollow-upPt present today to f/up Mycoplasma.ReasonComments Pre-op VisitEndometrial Biopsy Care Teams (unrecognized sec tion and content) Team MemberRelationshipSpecialtyStart DateEnd Date Bladimir Jennings [address] [place] [address] PCP - GeneralFamily Medicine10/09/21Team MemberRelationshipSpecialtyStart DateEnd Date Krystal Garcia DO [address] [address] PCP - GeneralFamily Medicine05/12/22Team MemberRelationshipSpecialtyStart DateEnd Date Krystal Garcia DO [address] [address] PCP - GeneralFamily Medicine05/12/22Team MemberRelationshipSpecialtyStart DateEnd Date Bladimir Jennings MD [address] [place] [address] PCP - GeneralFamily Medicine02/09/23Team MemberRelationshipSpecialtyStart DateEnd Date Bladimir Jennings MD [address] [place] [address] PCP - GeneralFamily Medicine02/09/23Team MemberRelationshipSpecialtyStart DateEnd Date Bladimir Jennings MD [address] [place] [address] PCP - GeneralFamily Medicine02/09/23Team MemberRelationshipSpecialtyStart DateEnd Date Krystal Garcia DO [address] [place] [address] PCP - GeneralFamily Medicine05/12/22Team MemberRelationshipSpecialtyStart DateEnd Date Bladimir Jennings MD [address] [place] [address] PCP - GeneralFamily Medicine02/09/23Team MemberRelationshipSpecialtyStart DateEnd Date Krystal Garcia, [address] [place] [address] PCP - GeneralFamily Medicine12/06/24Team MemberRelationshipSpecialtyStart DateEnd Date Bladimir Jennings MD [address] [place] [address] PCP - GeneralFamily Medicine02/09/23Team MemberRelationshipSpecialtyStart DateEnd Date Bladimir Jennings MD [address] [place] [address] PCP - GeneralFamily Medicine02/09/23Team MemberRelationshipSpecialtyStart DateEnd Date Bladimir Jennings MD [address] [place] [address] PCP - GeneralFamily Medicine02/09/23Team MemberRelationshipSpecialtyStart DateEnd Date Krystal Garcia DO [address] [address] PCP - GeneralFamily Medicine05/12/22Team MemberRelationshipSpecialtyStart DateEnd Date Krystal Garcia DO [address] [address] PCP - GeneralFamily Medicine05/12/22 Team Status: Inactive Member Role/Relationship Status Dates Carlos Eduardo Davis DO Attending Provider Active Start : August 09, 2025 End: August 09, 2025Team MemberRelationshipSpecialtyStart DateEnd Date Bladimir Jennings MD [address] [place] [address] PCP - GeneralFamily Medicine02/09/23 INFORMATION SOURCE (unrecogn ized section and content) DATE CREATED AUTHOR 12/11/2024 [facility] DATE CREATED AUTHOR AUTHOR'S ORGANIZ ATION 06/09/2025 [facility] DATE CREATED AUTHOR AUTHOR'S ORGANIZ ATION 06/11/2025 [facility] DATE CREATED AUTHOR AUTHOR'S ORGANIZ ATION 06/15/2025 [facility] DATE CREATED AUTHOR AUTHOR'S ORGANIZ ATION 06/17/2025 [facility] DATE CREATED AUTHOR AUTHOR'S ORGANIZ ATION 06/20/2025 [facility] DATE CREATED AUTHOR AUTHOR'S ORGANIZ ATION 08/03/2025 [facility] DATE CREATED AUTHOR AUTHOR'S ORGANIZ ATION 08/11/2025 [facility] DATE CREATED AUTHOR AUTHOR'S ORGANIZ ATION 08/14/2025 [facility] Goals (unrecognized section and content) Goals may be documented in a n alternate section FOR RECORDS PERTAINING TO PATIENTS WHO ARE [...] BE BASED ON THE PRIMARY CLINICAL RECORDS. [employer] [facility]. provides no warranty or guarantee of the accuracy or completeness of information in this document.
== END 2025-08-09 13:31 | disposition home or self-care (01) ==
LOC: LAB 13:30
PROVIDERS: Visit Provider Obstetrics & Gynecology
DX: N93.9 Abnormal uterine and vaginal bleeding, unspecified (principal); N92.0 Excessive and frequent menstruation with regular cycle; R10.30 Lower abdominal pain, unspecified
CPT/HCPCS: 88305